=== PATIENT | male | born 1975 | race Two or more races ===

== ENCOUNTER 2021-01-17 13:48 | Emergency (ER) | payer MEDICAID, SELFPAY ==
[2021-01-17 13:54] VITALS: BP 149/80; PULSE 112; O2SAT 100
[2021-01-17 14:00] VITALS: BP 134/78; PULSE 104; RESP 16; O2SAT 99; BMI 26.9
[2021-01-17 14:27] VITALS: BP 134/78; PULSE 104; RESP 16; O2SAT 99
--- NOTE | 2021-01-17 14:35 | PC.NURSE ---
pt reports he used heroin today. HE states he used 2 bags and was later told he had been given fentanyl and not heroin. HE states he walked to get a coffee, then woke to EMS standing over him explaining he had been given Narcan. Pt states he has not used heroin in a long time and did not think it would be strong. HE expressess willingness to get help for possible future thoughts of wanting to use, states he does not want to do this agian. Pt calm and coooperative, awaits further eval.
--- NOTE | 2021-01-17 14:49 | ED.OVERDOSE ---
HPI - Overdose General Chief Complaint: Overdose Stated Complaint: possible overdose Time Seen by Provider: 01/17/21 13:56 Source: patient and EMS Mode of arrival: EMS Limitations: no limitations History of Present Illness HPI Narrative: 45-year-old male with a past medical history of asthma and past substance abuse presenting to the ED via EMS after a possible overdose prior to arrival. Patient reports he has not used any drugs in a while although he argued with his and he went for a walk and bought some heroin then went to [facility] and bought a coffee and woke up to EMS although he does not remember anything else after that. EMS administered Narcan. Otherwise patient denies any additional complaints or concerns at this time. Denies any SI/HI/auditory visual hallucinations or thoughts of self injury. Not interested in detox at this time. Reports he wants to leave at this time due to he does not want his to find out that he is here in the hospital for an overdose due to he has been sober for years and just slipped up today. complaint: accidental overdose Onset (ago): minute(s) (Prior to arrival) Related Data Previous Rx's Medication Instructions Recorded buprenorphine-naloxone [Suboxone] 1 film SUBLINGUAL DAILY 5 Days #1 01/17/21 ea Allergies Allergy/AdvReac Type Severity Reaction Status Date / Time No Known Allergies Allergy Unverified 07/05/20 18:59 [No Known Allergies*] Review of Systems Review of Systems: Constitutional : No Fever, No Chills ENT/Mouth : No Ear Pain, No Nasal Congestion, No sore throat Eyes: No Eye Pain, No Swelling, No Redness Cardiovascular : No Chest Pain, No SOB Respiratory : No Cough, No Sputum, No Dyspnea Gastrointestinal : No ingestions, No Nausea, No Vomiting, No Diarrhea, No Hematochezia, No Melena Genitourinary : No Dysuria, No Urinary Frequency, No Hematuria Musculoskeletal : No Myalgias Skin : No Skin Lesions, No rash Neuro : No Weakness, No Numbness, No Paresthesias, No Dizziness, No Headache Psych : No Anxiety, No Depression, No SI/HI, No AVH, No thoughts of self injury Heme/Lymph: No Lymphadenopathy Endocrine : No Polyuria, No Polydipsia Yes all other systems are reviewed and are negative PMFSH Past Medical History Attestation statement: The following information was validated with the patient. Medical History (Updated 01/17/21 @ 14:53 by JAREN Barr) Asthma Social History Social History Alcohol intake: never Smoking Status: Never smoker Substance Use Type: Former Substance User Physical Exam Vital Signs: Vital Signs: Last Vital Signs Pulse 104 H 01/17/21 14:27 Resp 16 01/17/21 14:27 BP 134/78 01/17/21 14:27 Pulse Ox 99 01/17/21 14:27 Body Mass Index 26.9 vital signs have been reviewed as normal and appeared to be correct. Blood pressure normal. Heart rate normal. Respiration rate normal. Temperature normal. Oxygen saturation normal. Appearance: Alert. Oriented X3. No acute distress. Head: Normal external exam. Normocephalic. Atraumatic. No Etienne signs noted. No raccoon eyes noted Eyes: PERRLA. EOMI. Conjunctiva and sclera normal. Eyelids normal. ENT: EAC normal. TM's Normal. Pharynx normal. Uvula midline. Moist mucous membranes. No trismus noted. No drooling noted. No muffled voice noted. Neck: Normal inspection. Neck supple. FROM. No adenopathy. Thyroid Normal. No meningeal signs. No neck mass noted. CVS: Normal heart rate and rhythm. Heart sound normal. No murmurs noted. Pulses normal throughout. Respiratory: No respiratory distress. Painless inspiration. Breath sounds normal. No wheezes/rales/rhonchi noted. Chest nontender. No accessory muscle usage noted or decreased air movement noted. Abdomen: Soft and nontender. Bowel sounds normal in all 4 quadrants. No distention noted. No organomegaly noted. No visible injury noted. Back: No CVA tenderness. Full range of motion noted. Skin: Skin warm and dry. Normal skin color. Normal skin turgor. No rashes/lesions/lacerations noted. Extremities: No lower extremity edema. Extremities exhibit normal range of motion. Extremities nontender. Neuro: Oriented X 3. No motor deficit. No sensory deficit. Reflexes normal. Psych: Appearance grossly normal, well-kept, mental status normal, speech and movement normal, speech clear, patient appears anxious. Is cooperative. Normal thought process. Normal thought content. Normal good insight. Judgment good. Course Course Course Narrative: 45-year-old male presenting to the ED via EMS after an overdose with Narcan given by EMS. Denies any SI/HI/auditory visual sensations thoughts of self-injury not interested in detox. Although Kenroy spoke to him and he reported that he was interested in starting Suboxone therefore will give a script at this time and he has a follow-up appointment on Thursday with Yasmin Henry at the clinic. Otherwise no additional labs or imaging indicated at this time. I explained to the patient that he should stay here for approximately 2-4 hours to be monitored and patient is declining asking to leave against medical advice. Patient is alert and oriented x3. Clinically sober denies any SI/HI/auditory visualizations thoughts of self-injury therefore at this time will discharge against medical advice with Suboxone script with instructions to follow up on Thursday with Yasmin Henry and to return if any new or worsening symptoms. Patient understands agrees with this plan. MDM - Overdose Medical Records Attestation: I reviewed the patient's medical records. Discharge Plan Discharge Clinical Impression: Substance abuse, Drug overdose Patient Disposition: Left Against Medical Advice Instructions: Polysubstance Abuse (ED) Prescriptions: New buprenorphine-naloxone [Suboxone] 4-1 mg film 1 film sublingual DAILY 5 Days Qty: 1 RF: 0 Referrals: Yasmin Henry, JOSE LUIS [Nurse Practitioner] - 3 days (Follow-up at the above address for Suboxone) Print Language: Angolan
--- NOTE | 2021-01-17 16:09 | MHC.RECOVSUP ---
Recovery Support note: Patient is a 45 year old Emirati speaking male who presented to [facility] ED due to suspected overdose. Patient reports he relapsed on heroin after getting into an argument with his partner. Patient expressed interest in getting restarted on Suboxone. Patient was discharged with a prescription and has an appointment at the [facility] the following Thursday. Discussed case with patient's ED provider.
== END 2021-01-17 15:03 | disposition left against medical advice (07) ==
PROVIDERS: Emergency Provider Emergency Medicine Emergency Medical Services
DX: T40.1X1A Poisoning by heroin, accidental (unintentional), initial encounter (principal); Y92.511 Restaurant or cafe as the place of occurrence of the external cause; F11.10 Opioid abuse, uncomplicated
CPT/HCPCS: 99283; 99285

== ENCOUNTER 2021-04-10 10:04 | Emergency (ER) | payer MEDICAID, SELFPAY ==
--- NOTE | ~2021-04-10 | CT_ITS ---
EXAMINATION: CT BRAIN AND CT FACIAL BONES WITHOUT CONTRAST. CLINICAL INFORMATION: AMS. Facial trauma. COMPARISON: None TECHNIQUE: 5 mm thin axial and reformatted 2 mm thin sagittal and coronal images of brain were obtained without contrast. Subsequently axial 3 mm thin and reformatted 1.5 mm thin sagittal and coronal images of facial bones were obtained. [facility], [facility]1983 1144 FINDINGS: Brain: There is no acute intra-axial, extra-axial bleed, masses or midline shift. Both lateral ventricles are symmetrical in size and configuration without enlargement. There is no acute infarction in evolution. No edema. Bone windows reveal no calvarial abnormality. There is no scalp soft tissue abnormality. Bilateral paranasal sinuses and mastoid air cells are well aerated. There is mild deviation of nasal septum to the left. Facial bones: There is a depressed right nasal bone fracture with minimal soft tissue swelling. The maxillofacial bones are intact. The sinuses are well-aerated and clear. The mastoid air cells are well-aerated and clear. The lamina papyracea and the cribriform plate is intact. Bilateral optic globes, optic nerve and the bony orbits are intact. Visualized left nasal bone, the zygoma and the mandible electrodes intact. Bilateral TM joints are symmetrical and normal. There is no periapical cystic changes. The maxillofacial soft tissues are normal. The nasal cavity and nasopharyngeal airway appears patent. Mild deviation of nasal septum to the left is noted. CT/CT head/brain wo con IMPRESSION: No acute intracranial process seen. There is right nasal bone depressed fracture with minimal soft tissue swelling. No additional maxillofacial, left nasal or mandibular fractures seen.
--- NOTE | ~2021-04-10 | CT_ITS ---
EXAMINATION: CT BRAIN AND CT FACIAL BONES WITHOUT CONTRAST. CLINICAL INFORMATION: AMS. Facial trauma. COMPARISON: None TECHNIQUE: 5 mm thin axial and reformatted 2 mm thin sagittal and coronal images of brain were obtained without contrast. Subsequently axial 3 mm thin and reformatted 1.5 mm thin sagittal and coronal images of facial bones were obtained. [facility] 1144 FINDINGS: Brain: There is no acute intra-axial, extra-axial bleed, masses or midline shift. Both lateral ventricles are symmetrical in size and configuration without enlargement. There is no acute infarction in evolution. No edema. Bone windows reveal no calvarial abnormality. There is no scalp soft tissue abnormality. Bilateral paranasal sinuses and mastoid air cells are well aerated. There is mild deviation of nasal septum to the left. Facial bones: There is a depressed right nasal bone fracture with minimal soft tissue swelling. The maxillofacial bones are intact. The sinuses are well-aerated and clear. The mastoid air cells are well-aerated and clear. The lamina papyracea and the cribriform plate is intact. Bilateral optic globes, optic nerve and the bony orbits are intact. Visualized left nasal bone, the zygoma and the mandible electrodes intact. Bilateral TM joints are symmetrical and normal. There is no periapical cystic changes. The maxillofacial soft tissues are normal. The nasal cavity and nasopharyngeal airway appears patent. Mild deviation of nasal septum to the left is noted. CT/CT facial bones wo con IMPRESSION: No acute intracranial process seen. There is right nasal bone depressed fracture with minimal soft tissue swelling. No additional maxillofacial, left nasal or mandibular fractures seen.
[2021-04-10 10:13] VITALS: BP 123/74; BP 140/80; PULSE 74; RESP 18; O2SAT 98; O2SAT 99; BMI 19.8
--- NOTE | 2021-04-10 10:19 | ED.GENADULT ---
HPI - General Adult General Chief complaint: ETOH/Substance Use <JAREN Dias - Last Filed: 04/10/21 17:48> Stated complaint: HEROIN USE,NO NARCAN GIVEN <JAREN Dias - Last Filed: 04/10/21 17:48> Time Seen by Provider: 04/10/21 10:06 <JAREN Dias - Last Filed: 04/10/21 17:48> Source: patient and EMS <JAREN Dias - Last Filed: 04/10/21 17:48> Mode of arrival: EMS <JAREN Dias - Last Filed: 04/10/21 17:48> Limitations: no limitations <JAREN Dias - Last Filed: 04/10/21 17:48> History of Present Illness HPI narrative: 45 y/o male with history of substance abuse, asthma who presents to the ER via EMS after he was found stumbling around by the Police. He admits to heroin and benzo use last night and this morning. He did not require narcan. He reports stress at home with his . He was up all night arguing with her. He has been struggling with substance abuse for a long time. He is lethargic on arrival but protecting his airway, easily arouses to voice but quickly falls back asleep. <JAREN iDas - Last Filed: 04/10/21 17:48> MD complaint: AMS <JAREN Dias - Last Filed: 04/10/21 17:48> Onset (ago): unknown <JAREN Dias - Last Filed: 04/10/21 17:48> Location: face (abrasion to right maxillary area) <JAREN Dias - Last Filed: 04/10/21 17:48> Severity: moderate and similar to prior episodes <JAREN Dias - Last Filed: 04/10/21 17:48> Associated symptoms: confusion <JAREN Dias - Last Filed: 04/10/21 17:48> Treatments prior to arrival: none <JAREN Dias Last Filed: 04/10/21 17:48> Related Data Home medications: Previous Rx's Medication Instructions Recorded buprenorphine-naloxone [Suboxone] 1 film SUBLINGUAL DAILY 5 Days #1 01/17/21 ea <JAREN Dias - Last Filed: 04/10/21 17:48> Allergies/adverse reactions: Allergies Allergy/AdvReac Type Severity Reaction Status Date / Time No Known Allergies Allergy Unverified 07/05/20 18:59 [No Known Allergies*] <JAREN Dias - Last Filed: 04/10/21 17:48> Review of Systems Review of Systems: Yes Unobtainable due to mental condition and Unobtainable due to mental status <JAREN Dias - Last Filed: 04/10/21 17:48> [facility] Past Medical History Attestation statement: The following information was validated with the patient. <JAREN Dias - Last Filed: 04/10/21 17:48> Medical History: Medical History (Updated 04/10/21 @ 17:48 by JAREN Dias) Asthma <JAREN Dias - Last Filed: 04/10/21 17:48> Social History Social History: Social History Alcohol intake: never Substance Use Type: Former Substance User Advance Directives: No Advance Directives Information Provided: No <JAREN Dias - Last Filed: 04/10/21 17:48> Physical Exam Vital Signs: Vital Signs: Last Vital Signs Pulse 74 04/10/21 10:13 Resp 18 04/10/21 10:13 BP 123/74 04/10/21 10:13 Pulse Ox 99 04/10/21 11:09 Body Mass Index 19.8 Appearance: Lethargic middle aged male, sleeping Head/face: right maxilla with small superficial abrasion and erythema, no tenderness, no other traumatic findings. no cervical spinal tenderness Eyes: Pupils equal, round pinpoint ENT: Pharynx with dry mucus membranes Neck: Normal inspection. Neck supple. CVS: Normal heart rate and rhythm. Pulses normal. Respiratory: No respiratory distress. Breath sounds normal. Abdomen: Soft and nontender. +BS x4 Skin: Skin warm and dry. Normal skin color. Normal skin turgor. No rashes. Extremities: No lower extremity edema. Neuro: lethargic, arouses to voice and answers questions appropriately but quickly falls asleep. non-focal. <JAREN Dias Last Filed: 04/10/21 17:48> Vital Signs: Last Vital Signs Pulse 74 04/10/21 10:13 Resp 18 04/10/21 10:13 BP 123/74 04/10/21 10:13 Pulse Ox 99 04/10/21 11:09 Body Mass Index 19.8 <Justyn Muñoz MD - Last Filed: 05/13/21 19:56> Course Course Course Narrative: 45 y/o male presenting with lethargy and AMS in the setting of heroin and benzo use. Does not require Narcan at this time. Given AMS and signs of some mild facial trauma will get CT head/c-spine, labs, Utox and monitor closely. <JAREN Dias - Last Filed: 04/10/21 17:48> I have reviewed the chart <Justyn Muñoz MD - Last Filed: 05/13/21 19:56> Reevaluation(s) Reevaluation #1: CT showing No acute intracranial process seen. There is right nasal bone depressed fracture with minimal soft tissue swelling. 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 Continues to be lethargic and sleeping, will continue to monitor. <JAREN Dias - Last Filed: 04/10/21 17:48> Reevaluation #2: patient awake and alert, eating multiple sandwiches. Told to call his for a sober ride home but she is working until 3pm. <JAREN Dias - Last Filed: 04/10/21 17:48> Reevaluation #3: Patient eloped after being monitored in the ER for 4+ hours. <JAREN Dias - Last Filed: 04/10/21 17:48> Medical Decision Making Lab Data Result diagrams: : 04/10/21 11:40 04/10/21 11:40 <JAREN Dias - Last Filed: 04/10/21 17:48> Labs: Lab Results 04/10/21 04/10/21 04/10/21 Range/Units 11:40 11:40 11:40 WBC 5.7 (4.8-10.8) X10*3/uL RBC 3.70 L (4.60-5.80) X10*6/uL Hgb 11.8 L (14.0-18.0) g/dl Hct 34.8 L (42-52) % MCV 94.1 (80-98) fL MCH 31.9 (27.0-33.0) pg MCHC 33.9 (31.0-36.0) g/dl RDW 12.1 (11.0-16.0) % Plt Count 200 (160-400) X10*3/uL MPV 10.2 (9.4-12.4) fL Immature Gran % (Auto) 0.2 (0.0-0.4) % Neut % (Auto) 57.3 (45-73) % Lymph % (Auto) 29.6 (20-40) % Canyon % (Auto) 10.6 (2-11) % Eos % (Auto) 1.6 (0-4) % Baso % (Auto) 0.7 (0-2) % Lymph # (Auto) 1.7 (1.2-4.9) X10*3/uL Canyon # (Auto) 0.6 (0.1-1.2) X10*3/uL Eos # (Auto) 0.1 (0.0-0.4) X10*3/uL Baso # (Auto) 0.0 (0.0-0.2) X10*3/uL Abs Immat Gran (auto) 0.01 (0.00-0.03) X10*3/uL Absolute Neuts (auto) 3.3 (2.0-8.3) X10*3/uL Absolute Nucleated RBC 0.000 (0.0-0.012) X10*3/uL Nucleated RBC % (auto) 0.0 (0.0-0.2) /100WBC Sodium 138 (135-145) mmol/L Potassium 3.8 (3.3-5.1) mmol/L Chloride 106 (96-108) mmol/L Carbon Dioxide 28 (22-29) mmol/L Anion Gap 8 L (12-20) BUN 16 (9-16) mg/dL Creatinine 0.90 (0.5-1.4) mg/dL Estim Creat Clear Calc 102.9 Estimated GFR > 60 Random Glucose 120 H (60-115) mg/dL Calcium 9.1 (8.4-10.2) mg/dL Magnesium 1.9 (1.6-2.6) mg/dL Total Bilirubin 0.3 (0.0-1.0) mg/dL Direct Bilirubin < 0.2 (0.0-0.5) mg/dL AST 26 (5-37) U/L ALT 16 (0-40) U/L Alkaline Phosphatase 54 (39-117) U/L Total Protein 6.0 L (6.5-8.0) g/dL Albumin 3.9 (3.5-5.0) g/dL Ethyl Alcohol < 10 mg/dL <JAREN Dias - Last Filed: 04/10/21 17:48> Lab Results 04/10/21 04/10/21 04/10/21 Range/Units 11:40 11:40 11:40 WBC 5.7 (4.8-10.8) X10*3/uL RBC 3.70 L (4.60-5.80) X10*6/uL Hgb 11.8 L (14.0-18.0) g/dl Hct 34.8 L (42-52) % MCV 94.1 (80-98) fL MCH 31.9 (27.0-33.0) pg MCHC 33.9 (31.0-36.0) g/dl RDW 12.1 (11.0-16.0) % Plt Count 200 (160-400) X10*3/uL MPV 10.2 (9.4-12.4) fL Immature Gran % (Auto) 0.2 (0.0-0.4) % Neut % (Auto) 57.3 (45-73) % Lymph % (Auto) 29.6 (20-40) % Canyon % (Auto) 10.6 (2-11) % Eos % (Auto) 1.6 (0-4) % Baso % (Auto) 0.7 (0-2) % Lymph # (Auto) 1.7 (1.2-4.9) X10*3/uL Canyon # (Auto) 0.6 (0.1-1.2) X10*3/uL Eos # (Auto) 0.1 (0.0-0.4) X10*3/uL Baso # (Auto) 0.0 (0.0-0.2) X10*3/uL Abs Immat Gran (auto) 0.01 (0.00-0.03) X10*3/uL Absolute Neuts (auto) 3.3 (2.0-8.3) X10*3/uL Absolute Nucleated RBC 0.000 (0.0-0.012) X10*3/uL Nucleated RBC % (auto) 0.0 (0.0-0.2) /100WBC Sodium 138 (135-145) mmol/L Potassium 3.8 (3.3-5.1) mmol/L Chloride 106 (96-108) mmol/L Carbon Dioxide 28 (22-29) mmol/L Anion Gap 8 L (12-20) BUN 16 (9-16) mg/dL Creatinine 0.90 (0.5-1.4) mg/dL Estim Creat Clear Calc 102.9 Estimated GFR > 60 Random Glucose 120 H (60-115) mg/dL Calcium 9.1 (8.4-10.2) mg/dL Magnesium 1.9 (1.6-2.6) mg/dL Total Bilirubin 0.3 (0.0-1.0) mg/dL Direct Bilirubin < 0.2 (0.0-0.5) mg/dL AST 26 (5-37) U/L ALT 16 (0-40) U/L Alkaline Phosphatase 54 (39-117) U/L Total Protein 6.0 L (6.5-8.0) g/dL Albumin 3.9 (3.5-5.0) g/dL Ethyl Alcohol < 10 mg/dL <Justyn Muñoz MD - Last Filed: 05/13/21 19:56> Discharge Plan Discharge Clinical Impression: Substance abuse <JAREN Dias - Last Filed: 04/10/21 17:48> Patient Disposition: Elopement <JAREN Dias - Last Filed: 04/10/21 17:48> Prescriptions: No Action buprenorphine-naloxone [Suboxone] 4-1 mg film 1 film sublingual DAILY 5 Days Qty: 1 RF: 0 <JAREN Dias - Last Filed: 04/10/21 17:48> Interventions: ED Discharge Assessment Last Done: 04/10/21 14:35 <JAREN Dias - Last Filed: 04/10/21 17:48> Discharge Date/Time: 04/10/21 14:35 <JAREN Dias - Last Filed: 04/10/21 17:48>
[2021-04-10 11:09] VITALS: O2SAT 99
[2021-04-10 11:46] LABS: MANUAL DIFF FLAG NO
--- NOTE | 2021-04-10 11:50 | MHC.RECOVSUP ---
? Reason for consult:Continuity of care o Current location: [id number] o Identified substance use concern: Heroin - Overdose - Support ? Intervention: o Harm reduction discussion ? Plan: o Patient to follow up with [facility] after discharge ? Additional information:Pt. is still impaired and uncooperative. Patient refuses detox.
[2021-04-10 11:53] LABS: Basophils Percent Auto 0.7 % (0-2); Eosinophils Absolute Auto 0.1 X10*3/uL (0.0-0.4); Eosinophils Percent Auto 1.6 % (0-4); Hematocrit 34.8 % (42-52); Hemoglobin 11.8 g/dl (14.0-18.0); Imm Gran Abs Auto 0.01 X10*3/uL (0.00-0.03); Imm Gran Pct Auto 0.2 % (0.0-0.4); Lymphocytes Absolute Auto 1.7 X10*3/uL (1.2-4.9); Lymphocytes Percent Auto 29.6 % (20-40); Mean Corpuscular HGB Conc 33.9 g/dl (31.0-36.0); Mean Corpuscular Hemoglobin 31.9 pg (27.0-33.0); Mean Corpuscular Volume 94.1 fL (80-98); Mean Platelet Volume 10.2 fL (9.4-12.4); Monocytes Absolute Auto 0.6 X10*3/uL (0.1-1.2); Monocytes Percent Auto 10.6 % (2-11); Neutrophils Absolute Auto 3.3 X10*3/uL (2.0-8.3); Neutrophils Percent Auto 57.3 % (45-73); Platelet Count 200 X10*3/uL (160-400); Red Cell Distribution Width 12.1 % (11.0-16.0); White Blood Count 5.7 X10*3/uL (4.8-10.8)
[2021-04-10 12:08] LABS: Ethanol < 10 mg/dL
[2021-04-10 12:16] LABS: Alanine Aminotransferase 16 U/L (0-40); Albumin Level 3.9 g/dL (3.5-5.0); Alkaline Phosphatase 54 U/L (39-117); Anion Gap 8 (12-20); Aspartate Amino Transferase 26 U/L (5-37); Bilirubin Direct < 0.2 mg/dL (0.0-0.5); Bilirubin Total 0.3 mg/dL (0.0-1.0); Blood Urea Nitrogen 16 mg/dL (9-16); Calcium 9.1 mg/dL (8.4-10.2); Carbon Dioxide 28 mmol/L (22-29); Chloride 106 mmol/L (96-108); Creatinine Clr Calc Pharmacy 102.9; Estimated Glomerular Filt Rate > 60; Glucose Random 120 mg/dL (60-115); Magnesium 1.9 mg/dL (1.6-2.6); Potassium 3.8 mmol/L (3.3-5.1); Sodium 138 mmol/L (135-145)
== END 2021-04-10 14:35 | disposition left against medical advice (07) ==
PROVIDERS: Physician Assistant; Emergency Provider Emergency Medicine
DX: F11.10 Opioid abuse, uncomplicated (principal); F13.10 Sedative, hypnotic or anxiolytic abuse, uncomplicated
CPT/HCPCS: 36415; 70450; 70486; 80048; 80076; 82077; 83735; 85025; 99283; 99284

== ENCOUNTER 2021-06-24 02:52 | Emergency (ER) | payer MEDICAID, SELFPAY ==
[2021-06-24] VITALS (8 sets, daily range): BP systolic 120–154; BP diastolic 80–102; PULSE 76–93; RESP 16–21; TEMP 36.4; O2SAT 96–100; BMI 21.5
--- NOTE | ~2021-06-24 | CT_ITS ---
EXAMINATION: NONCONTRAST HEAD CT NONCONTRAST MAXILLOFACIAL CT INDICATION INFORMATION: Trauma. Evaluate for orbital fracture. COMPARISON: None TECHNIQUE: Separate noncontrast CT examinations of the head and maxillofacial bones were performed. Coronal and sagittal images were created for each examination at the technologist workstation. This CT examination was performed using dose optimization techniques as appropriate, variously including the following: *Automated exposure control *Adjustment of mA and/or kV according to patient size (this includes techniques or standardized protocols for targeted exams where dose is matched to indication/reason for exam; i.e. extremities or head) *Use of iterative reconstruction technique DLP: 1078 mGy-cm FINDINGS: Head: There is no evidence of acute intracranial hemorrhage or territorial infarction. No abnormal mass effect or midline shift is seen. Ocampo to white matter differentiation is well preserved. No extra-axial fluid collections are identified. No hydrocephalus. No significant volume loss. There is no abnormal attenuation within the brain parenchyma. No acute soft tissue abnormality. No calvarial fracture. The mastoid air cells are well aerated. Maxillofacial: Comminuted, slightly impacted fractures of the anterior wall of the LEFT maxillary sinus. One component of the fracture extends to the LEFT inferior orbital rim. The left orbital floor is intact. RIGHT orbit is intact. Both globes are intact. No retrobulbar hematoma. Extensively comminuted bilateral nasal bone fractures with mild displacement and angulation. There is also a mildly displaced fracture of the nasal spine of the maxilla anteriorly. No additional acute facial bone fractures. Paranasal sinuses are clear. Mandible and temporomandibular joints are intact. There is left periorbital and perinasal soft tissue swelling. Left premaxillary soft tissue swelling. CT/CT facial bones wo IV con IMPRESSION: 1. No acute intracranial findings. 2. Acute comminuted minimally impacted fracture of the LEFT anterior maxillary wall, with a component of the fracture reaching the LEFT inferior orbital rim. Remainder of the LEFT orbit is intact. 3. Extensively comminuted, mildly displaced and angulated bilateral nasal bone fractures.
--- NOTE | 2021-06-24 04:15 | PC.NURSE ---
at bedside for primary eval. Pt remains very drowsy, becoming irritated when staff attempting to wake/question patient. Urine obtained and sent.
[2021-06-24 04:16] LABS: Glucose Urine UA NEG (NEG); Leukocyte Esterase Urine NEG (NEG); Nitrite Urine NEG (NEG); UACC Culture Trigger NO; Urine Blood TRACE (NEG); Urine Ketones NEG (NEG); Urine Protein NEG (NEG-TRACE)
--- NOTE | 2021-06-24 04:16 | ED.GENADULT ---
HPI - General Adult General Chief complaint: ETOH/Substance Use Stated complaint: drug use Time Seen by Provider: 06/24/21 04:05 Source: EMS Mode of arrival: EMS Limitations: altered mental status History of Present Illness HPI narrative: Patient comes to the emergency room by EMS. According to the EMS staff, the [place]. Seems that a concerned bystander saw him acting strangely and called EMS. When EMS picked up the patient, the patient said that he used Xanax and nothing else. Patient refuses to give his real name, does not have an ID on him. On arrival to the emergency room, patient wakes up to sternal rub, patient belligerent, wants to go back to sleep, not answering any questions, uncooperative Related Data Previous Rx's Medication Instructions Recorded amoxicillin 875 mg-potassium 1 tab PO BID #20 tab 06/24/21 clavulanate 125 mg tablet (Augmentin) Allergies Allergy/AdvReac Type Severity Reaction Status Date / Time No Known Allergies Allergy Verified 06/24/21 03:10 Review of Systems Review of Systems: Yes Other (Intoxicated) [facility] Past Medical History [facility] Narrative: Unobtainable at this time Medical History Substance abuse Physical Exam Vital Signs: Vital Signs: Last Vital Signs Temp 97.5 F 06/24/21 03:03 Pulse 93 06/24/21 06:09 Resp 16 06/24/21 06:09 BP 154/102 H 06/24/21 03:03 Pulse Ox 100 06/24/21 03:03 Body Mass Index 21.5 Const: Other: Appearance: Somnolent, uncooperative Eyes: Pupils equal, round and reactive to light. ENT: Pharynx normal. Neck: Normal inspection. Neck supple. No lymph nodes noted. No crepitus CVS: Normal heart rate and rhythm. Pulses normal. Normal S1 and S2 Respiratory: No respiratory distress. Breath sounds normal. No Wheezing. No rales Abdomen: Soft and nontender. No rigidity. No distention. Skin: Skin warm and dry. Multiple ecchymoses to face, especially left-side MSK: No lower extremity edema. No Lacerations. No Rash Neuro: Intoxicated, combative and belligerent when we tried to wake him up Course Course Course Narrative: Bone fractures, including nasal bone and maxillary wall fracture. Patient is unable to cooperate at this time, however when patient moves his eyes,extraocular muscle entrapment is not suspected at this time but needs reassessment. At this time, patient is somnolent, wakes up to sternal rub, becomes belligerent and was back to sleep. We do not know his allergies. Patient's urine was positive for opiates, fentanyl, cocaine, marijuana. First dose of antibiotic was ordered when the patient is awake and after we confirmed his allergies. At this time, we do not know the patient's real name. Sign out given to Dr. Corado Medical Decision Making Lab Data Labs: Lab Results 06/24/21 06/24/21 Range/Units 04:11 04:11 Urine Color YELLOW Urine Appearance CLEAR Urine pH 8.0 (5.0-8.0) Ur Specific [place] 1.020 (1.005-1.025) Urine Protein NEG (NEG-TRACE) MG/DL Urine Glucose (UA) NEG (NEG) MG/DL Urine Ketones NEG (NEG) MG/DL Urine Blood TRACE (NEG) Urine Nitrite NEG (NEG) Ur Leukocyte Esterase NEG (NEG) Urine RBC 1-4 (0) /HPF Urine WBC 0-2 (0-4) /HPF Ur Squamous Epith Cells 1+ /LPF Urine Bacteria 1+ /LPF Urine Opiates Screen POSITIVE H (Not Detect) Urine Fentanyl Screen POSITIVE H (Not Detect) Ur Barbiturates Screen Not Detected (Not Detect) Ur Phencyclidine Scrn Not Detected (Not Detect) Ur Amphetamines Screen Not Detected (Not Detect) U Benzodiazepines Scrn Not Detected (Not Detect) Urine Cocaine Screen POSITIVE H (Not Detect) U Marijuana (THC) Screen POSITIVE H (Not Detect) Imaging Data CT of the head and facial bones: Radiologist's impression: This CT examination was performed using dose optimization techniques as appropriate, variously including the following: *Automated exposure control *Adjustment of mA and/or kV according to patient size (this includes techniques or standardized protocols for targeted exams where dose is matched to indication/reason for exam; i.e. extremities or head) *Use of iterative reconstruction technique DLP: 1078 mGy-cm FINDINGS: Head: There is no evidence of acute intracranial hemorrhage or territorial infarction. No abnormal mass effect or midline shift is seen. Ocampo to white matter differentiation is well preserved. No extra-axial fluid collections are identified. No hydrocephalus. No significant volume loss. There is no abnormal attenuation within the brain parenchyma. No acute soft tissue abnormality. No calvarial fracture. The mastoid air cells are well aerated. Maxillofacial: Comminuted, slightly impacted fractures of the anterior wall of the LEFT maxillary sinus. One component of the fracture extends to the LEFT inferior orbital rim. The left orbital floor is intact. RIGHT orbit is intact. Both globes are intact. No retrobulbar hematoma. Extensively comminuted bilateral nasal bone fractures with mild displacement and angulation. There is also a mildly displaced fracture of the nasal spine of the maxilla anteriorly. No additional acute facial bone fractures. Paranasal sinuses are clear. Mandible and temporomandibular joints are intact. There is left periorbital and perinasal soft tissue swelling. Left premaxillary soft tissue swelling. CT/CT facial bones wo con IMPRESSION: 1. No acute intracranial findings. 2. Acute comminuted minimally impacted fracture of the LEFT anterior maxillary wall, with a component of the fracture reaching the LEFT inferior orbital rim. Remainder of the LEFT orbit is intact. 3. Extensively comminuted, mildly displaced and angulated bilateral nasal bone fractures. Discharge Plan Discharge Clinical Impression: Alcoholic intoxication, Polysubstance abuse, Closed fracture nasal bone, Closed fracture of maxillary alveolar socket wall Patient Disposition: Home, Self-Care Instructions: Facial Fracture (ED), Polysubstance Abuse (ED) Additional Instructions: Please follow-up with your primary care physician tomorrow. If you have any worsening or new symptoms, please return to the emergency room or call 911 Prescriptions: New amoxicillin-pot clavulanate [Augmentin] 875-125 mg tablet 1 tab PO BID Qty: 20 RF: 0
[2021-06-24 04:18] LABS: Appearance Urine CLEAR; Color Urine YELLOW
[2021-06-24 04:23] LABS: Bacteria Urine 1+ /LPF; Squamous Epithelial Cell Urine 1+ /LPF; WBC Urine 0-2 /HPF (0-4)
[2021-06-24 04:30] LABS: Amphetamine Screen Urine Not Detected (Not Detect); Barbiturates, Urine Not Detected (Not Detect); Benzodiazepines Screen Urine Not Detected (Not Detect); Cannabinoid Screen Urine POSITIVE (Not Detect); Cocaine Screen Urine POSITIVE (Not Detect); Fentanyl, urine POSITIVE (Not Detect); Opiate Screen Urine POSITIVE (Not Detect); Phencyclidine Screen Urine Not Detected (Not Detect)
--- NOTE | 2021-06-24 06:10 | PC.NURSE ---
Pt off to CT on hospital bed.
[2021-06-24] MEDS: Amoxicillin/Potassium Clav 875 MG TABLET PO (12:48)
--- NOTE | 2021-06-24 14:57 | MHC.CARE ---
CARE Team able to secure Pt placement at [facility]. Pt transported to [facility] via [facility]
--- NOTE | 2021-06-24 17:08 | MHC.CARE ---
CARE team contacted by MAGDALENO Freitas re: script for Augmentin that pt was to be sent with. [facility] which is listed as pt's preferred pharmacy in the medical record. This typewriter mechanic spoke with ED nurse and physician about cancelling the script and resending to [facility] [place] ([facility]).
== END 2021-06-24 14:50 | disposition home or self-care (01) ==
LOC: HO.ED 13:20
PROVIDERS: Emergency Provider Emergency Medicine
DX: F10.220 Alcohol dependence with intoxication, uncomplicated (principal); Y90.9 Presence of alcohol in blood, level not specified; F19.10 Other psychoactive substance abuse, uncomplicated; S02.42XA Fracture of alveolus of maxilla, initial encounter for closed fracture; S02.2XXA Fracture of nasal bones, initial encounter for closed fracture; X58.XXXA Exposure to other specified factors, initial encounter; R40.0 Somnolence; Y93.9 Activity, unspecified; Y92.9 Unspecified place or not applicable; Y99.9 Unspecified external cause status
CPT/HCPCS: 70450; 70486; 80307; 81001; 99284

== ENCOUNTER 2022-12-15 11:29 | Emergency (ER) | payer MEDICAID, SELFPAY ==
[2022-12-15 11:39] VITALS: BP 132/80; BP 140/88; PULSE 105; PULSE 90; RESP 16; TEMP 37.2; O2SAT 100; BMI 26.6
--- NOTE | 2022-12-15 11:52 | ED_ITS ---
HPI - Medical Clearance General Chief complaint: Upper Respiratory Symptoms Stated complaint: Wheezing / allergic reaction ? Time Seen by Provider: 12/15/22 11:35 Source: patient and EMS Mode of arrival: EMS History of Present Illness HPI Narrative: 47-year-old male with a past medical history of substance abuse, asthma who is presenting to the ED via EMS after he was trying to leave [facility] discharge himself out although the staff member told him that he could not leave and patient states ?the staff member told me that I look like I was going to pass out I do not know what she was talking about I feel completely fine I want to go home and have any symptoms?. Patient denies any fevers, chills, headaches, neck pain/stiffness, chest pain or shortness of breath, sore throat, cough, nausea/vomiting/diarrhea, abdominal pain, rashes, recent falls or trauma, recent drug usage, any auditory or visual hallucinations thoughts of self-injury, any SI or thoughts of self-injury, any homicidal ideations or any other symptoms complaints or concerns at this time. He reports he just wants to go home that is his right per patient stated that to me. complaint: medical clearance requested Onset (ago): minute(s) (Now) Reason for Medical Clearance: other (From [facility]) Alleged Intoxication: No Compliant with Home Medications: Yes Traumatic Symptoms: denies traumatic injury Associated Symptoms: denies other symptoms Treatments Prior to Arrival: none Related Information Previous Rx's Medication Instructions Recorded buprenorphine 4 mg-naloxone 1 mg 1 film sublingual DAILY 5 days #1 01/17/21 sublingual film (Suboxone) ea amoxicillin 875 mg-potassium 1 tab PO BID #20 tabs 06/24/21 clavulanate 125 mg tablet (Augmentin) Allergies Allergy/AdvReac Type Severity Reaction Status Date / Time No Known Allergies Allergy Unverified 08/12/22 13:46 [No Known Allergies*] Review of Systems Review of Systems: Constitutional : No Weight loss, No Fever, No Chills, No Night Sweats, No Fatigue, No Malaise ENT/Mouth : No Hearing loss, No Ear Pain, No Nasal Congestion, No Sinus Pain, No Hoarseness, No sore throat, No Rhinorrhea, No Swallowing Difficulty Eyes: No Eye Pain, No Swelling, No Redness, No Foreign Body, No Discharge, No Vision Changes Cardiovascular : No Chest Pain, No SOB, No Dyspnea on Exertion, No Orthopnea, No Edema, No Palpitations Respiratory : No Cough, No Sputum, No Wheezing, No Smoke Exposure, No Dyspnea Gastrointestinal : No Nausea, No Vomiting, No Diarrhea, No Constipation, No abdominal Pain, No Hematochezia, No Melena Genitourinary : no irregular bleeding, No Dysuria, No Urinary Frequency, No Hematuria, No Urinary Incontinence, No Urgency, No Flank Pain, No Urinary Flow Changes, No Hesitancy Musculoskeletal : No joint pain, No Myalgias, No Joint Swelling Skin : No Skin Lesions, No rash Neuro : No Weakness, No Numbness, No Paresthesias, No Loss of Consciousness, No Dizziness, No Headache Psych : No Anxiety/Panic, No Depression, No SI/HI/AH/VH, No Social Issues, Heme/Lymph: No Bruising, No Bleeding,No Lymphadenopathy Endocrine : No Polyuria, No Polydipsia, No Temperature Intolerance Yes all other systems are reviewed and are negative [facility] Past Medical History Attestation statement: The following information was validated with the patient. Source: old records reviewed and nursing notes reviewed Medical History Asthma Substance abuse Social History Social History Alcohol intake: never Substance Use Type: Former Substance User Advance Directives: No Advance Directives Information Provided: No Physical Exam Vital Signs: Vital Signs: Last Vital Signs Temp 99.0 F 12/15/22 11:39 Pulse 105 H 12/15/22 11:39 Resp 16 12/15/22 11:39 BP 132/80 12/15/22 11:39 Pulse Ox 100 12/15/22 11:39 O2 Del Method 12/15/22 11:39 BMI result Body Mass Index 26.6 vital signs have been reviewed as normal and appeared to be correct. Blood pressure normal. Heart rate normal. Respiration rate normal. Temperature normal. Oxygen saturation normal. Appearance: Alert. Oriented X3. No acute distress. Head: Normal external exam. Normocephalic. Atraumatic. No Etienne signs noted. No raccoon eyes noted Eyes: PERRLA. EOMI. Conjunctiva and sclera normal. Eyelids normal. ENT: EAC normal. TM's Normal. No septal hematoma noted. No hemotympanum noted. Pharynx normal. Uvula midline. Moist mucous membranes. No lesions/ulcerations or masses noted on the tongue. Normal voice. No trismus noted. No drooling noted. No muffled voice noted. Neck: Normal inspection. Neck supple. FROM. No adenopathy. Thyroid Normal. No tracheal deviation noted. No crepitus is noted. No meningeal signs. No neck mass noted. No signs of trauma noted. CVS: Normal heart rate and rhythm. Heart sound normal. Pulses normal throughout. No murmurs/rales/gallops. Respiratory: No respiratory distress. Painless inspiration. Breath sounds normal. No wheezes/rales/rhonchi noted. Chest nontender. No crepitus is noted. No accessory muscle usage noted or decreased air movement noted. No signs of trauma. Abdomen: Soft and nontender. Nondistended. No guarding. No rigidity. Bowel sounds normal in all 4 quadrants. No distention noted. No organomegaly noted. No visible injury noted. No rebound tenderness. Negative Rovsing sign. Negative obturator's sign. Negative psoas sign. Negative Munoz sign. Back: No CVA tenderness. Full range of motion noted. Nontender. No signs of trauma. Patient neuro intact bilaterally and distally on all 4 extremities. Patient's reflexes intact bilaterally and distally on all 4 extremities. No rashes/lesion/induration/fluctuance or signs of infection noted. Skin: Skin warm and dry. Normal skin color. Normal skin turgor. No rashes/lesions/lacerations noted. Extremities: No lower extremity edema. No calf tenderness is noted. Extremities exhibit normal range of motion and nontender. Neuro: Oriented X 3. No motor deficit. No sensory deficit. Reflexes normal. Normal steady gait. No focal neuro deficits noted. CN's II-XII intact bilaterally? Vascular: + radial pulses/+ 2 distal pedal pulses/+2 dorsalis pedis b/l. Normal cap refill. No cyanosis noted to upper extremity nails and lower extremity toes nails. Course Course Course Narrative: Patient denies any symptoms. On my exam he has a normal exam. Does not appear intoxicated. Vital signs are stable. Alert and oriented x3. No signs of trauma. No concerns for mental health at this time. Therefore at this time will DC home with instructions return if any new or worsening symptoms follow up with primary care provider. Patient understands agrees with this plan. Discharge Plan Discharge Clinical Impression: Normal exam Patient Disposition: Home, Self-Care Instructions: Normal Exam (ED) Prescriptions: No Action amoxicillin-pot clavulanate [Augmentin] 875-125 mg tablet 1 tab PO BID Qty: 20 0RF buprenorphine-naloxone [Suboxone] 4-1 mg film 1 film sublingual DAILY 5 Days Qty: 1 0RF Referrals: [facility] [Primary Care Provider] - 2 days
== END 2022-12-15 12:08 | disposition home or self-care (01) ==
PROVIDERS: Emergency Provider Emergency Medicine
DX: Z03.89 Encounter for observation for other suspected diseases and conditions ruled out (principal); J45.909 Unspecified asthma, uncomplicated; F11.20 Opioid dependence, uncomplicated
CPT/HCPCS: 99282

== ENCOUNTER 2022-12-26 10:39 | Emergency (ER) | payer MEDICAID, SELFPAY ==
--- NOTE | ~2022-12-26 | XR_ITS ---
EXAMINATION: XR HAND, RIGHT CLINICAL INFORMATION: Right hand pain and swelling. COMPARISON: None TECHNIQUE: PA, lateral, and oblique views of the right hand. FINDINGS: Deformity seen in the distal phalanx of the fifth digit. The remainder the digits are intact. Mild fifth distal interphalangeal degenerative joint changes are seen. The carpal bones are normally aligned. The distal radius and ulna are intact. The soft tissues are unremarkable. XR/XR hand RT 2V IMPRESSION: 1. Deformity in the distal phalanx of the fifth digit does not appear acute and could be secondary to old injury or remodeling from adjacent soft tissue abnormality. Correlate with physical exam and patient history. Mild adjacent distal interphalangeal degenerative joint changes most consistent with osteoarthritis. No significant abnormality in the remainder of the right hand.
[2022-12-26 10:44] VITALS: BP 192/100; PULSE 90; O2SAT 100
[2022-12-26 10:48] VITALS: BP 160/104; PULSE 80; RESP 18; TEMP 37.5; O2SAT 100; BMI 25.3
--- NOTE | 2022-12-26 10:53 | ED_ITS ---
HPI - General Adult General Chief complaint: General Medical Stated complaint: L hand pain, finger swelling per EMS Time Seen by Provider: 12/26/22 10:50 Source: patient and EMS Mode of arrival: EMS Limitations: no limitations History of Present Illness HPI narrative: Patient is a 47 year old assigned male at with a history of astham and substance abuse presenting to the emergency department today with right hand pain. Patient states that he is having right hand pain and swelling. Patient denies any dizziness, lightheadedness, abdominal pain, nausea, vomiting, fever, chills, blurry vision, double vision, loss of vision, chest pain, difficulty breathing, shortness of breath, back pain, night sweats, pain with urination, increased urinary frequency, increased urinary urgency, blood in his urine or stool, syncope or a near syncopal episode, recent trauma or falls, bowel incontinence, bladder incontinence, bowel retention, bladder retention, or any other complaints at this time. Onset (ago): day(s) Location: right and upper extremity Radiation: non-radiation Severity: mild Severity scale (1-10): 2 Quality: dull Pain Consistency: constant Relieving factors: none Exacerbating factors: none Associated symptoms: denies other symptoms Treatments prior to arrival: none Related Data Previous Rx's Medication Instructions Recorded buprenorphine 4 mg-naloxone 1 mg 1 film sublingual DAILY 5 days #1 01/17/21 sublingual film (Suboxone) ea amoxicillin 875 mg-potassium 1 tab PO BID #20 tabs 06/24/21 clavulanate 125 mg tablet (Augmentin) Allergies Allergy/AdvReac Type Severity Reaction Status Date / Time No Known Allergies Allergy Unverified 08/12/22 13:46 [No Known Allergies*] Review of Systems Constitutional: Constitutional: Reports no additional constitutional complaints, Denies chills, Denies fever(s) and Denies night sweats Eyes: Eyes: Reports no additional eye complaints, Denies blurry vision, Denies change in vision, Denies diplopia, Denies eye discharge, Denies loss of vision and Denies eye pain ENT: Denies dizziness Cardiovascular: Cardiovascular: Reports no additional cardiovascular complaints, Denies chest pain, Denies lightheadedness, Denies Loss of Consciousness and Denies dyspnea Respiratory: Respiratory: Reports no additional respiratory complaints and Denies dyspnea Gastrointestinal: Gastrointestinal: Reports no additional gastrointestinal complaints, Denies abdominal pain, Denies melena, Denies hematochezia, Denies change in bowel habits and Denies change in stool character Genitourinary: Genitourinary: Reports no additional male genitourinary complaints, Denies hematuria, Denies oliguria, Denies difficulty urinating, Denies dysuria, Denies urinary frequency, Denies urinary hesitancy, Denies urinary incontinence and Denies urinary urgency Musculoskeletal: Musculoskeletal: Reports no additional musculoskeletal complaints, Denies numbness and Denies tingling Comments: right hand pain Neurologic: Denies dizziness, Denies loss of vision, Denies numbness and Denies tingling Psychiatric: Psychiatric: Reports no additional psychiatric complaints Endocrine: Endocrine: Reports no additional endocrine complaints Hematologic/Lymphatic: Hematologic/Lymphatic: Reports no additional hematologic/lymphatic complaints Allergic/Immunologic: Allergic/Immunologic: Reports no additional allergic/immunologic complaints PMFSH Past Medical History Attestation statement: The following information was validated with the patient. Source: old records reviewed and nursing notes reviewed Medical History Asthma Substance abuse Social History Social History Alcohol intake: never Substance Use Type: Former Substance User Advance Directives: No Advance Directives Information Provided: No Physical Exam ED Vital Signs: Vital Signs - 24 hr 12/26/22 10:48 Temperature 99.5 F Pulse Rate 80 Respiratory Rate 18 Blood Pressure 160/104 H Pulse Oximetry 100 Oxygen Delivery Method Room Air BMI result Body Mass Index 25.3 Const General: cooperative, no acute distress, alert and awake Nutritional Appearance: well nourished Orientation/consciousness: patient oriented x3 Limitations: no limitations [facility] Head: Yes normal to inspection and Yes atraumatic Ears: hearing grossly normal bilaterally and external ears normal General nose exam: Normal external nose present, no nasal discharge noted and no epistaxis Face and sinus: Yes normal facial exam, No abrasion and No laceration Mouth: Normal oral and palatal mucosa present, no drooling and no muffled voice Eyes General: appearance normal, both eyes and all related structures Periorbital: periorbital findings normal Eyelids: Yes eyelids normal Conjunctivae: conjunctivae normal Pupils: Equal, round and reactive pupils present EOM: EOMs intact bilaterally Neck Neck: Yes normal visual inspection, Yes full ROM and Yes no lymphadenopathy Chest Chest palpation & inspection: normal inspection of the chest Resp Effort & Inspection: normal respiratory effort and able to speak in complete sentences Auscultation: clear to auscultation bilaterally Cardio Rate: regular rate Rhythm: regular rhythm GI Inspection: Yes normal to inspection Neuro General: patient oriented x3 and moves all extremities Cranial nerves: Yes Equal, round and reactive pupils present Cognition (Neuro): normal cognition Motor exam (neuro): 5/5 motor strength present throughout Sensory Exam: Normal double simultaneous stimulation for sensation Coordination: [id number] test normal Extrem General: Yes normal to inspection, Yes full ROM and Yes capillary refill normal Psych Appearance: grossly normal Mental Status: mental status grossly normal Affect: normal affect Attitude: cooperative Thought process: Normal thought process present Thought content: Normal thought content present Insight: Good insight present (Psych) Medical Decision Making Medical Decision Making MDM Narrative: Patient is a 47 year old assigned male at with a history of asthma and substance abuse presenting to the emergency department today with right hand pain. Patient's physical exam was unremarkable. Patient's right hand x-ray showed no acute process. I explained my physical exam findings as well as all test results to the patient. I answered all questions asked by the patient. I stressed the importance of the patient taking his medication as prescribed. I stressed the importance of the patient following up with his primary care provider and an orthopedic provider. I stressed the importance of the patient returning to the emergency department immediately if his symptoms were to worsen or if he were to develop any dizziness, shortness of breath, difficulty breathing, chest pain, blurry vision, loss of vision, nausea, vomiting, abdominal pain, fever, chills, back pain, or any other complaints. Patient verbalized agreement and understanding with this treatment plan and discharge. Differential Diagnosis Differential Diagnoses: The differential diagnosis associated with the presentation includes right hand pain Independent Interpretation I performed an independent interpretation of an: Plain X-Ray Interpretation: My interpretation is in agreement with the radiologist's impression of this imaging study. EXAMINATION: XR HAND, RIGHT CLINICAL INFORMATION: Right hand pain and swelling.? COMPARISON: None? TECHNIQUE: PA, lateral, and oblique views of the right hand. FINDINGS: Deformity seen in the distal phalanx of the fifth digit. The remainder the digits are intact. Mild fifth distal interphalangeal degenerative joint changes are seen. The carpal bones are normally aligned. The distal radius and ulna are intact. The soft tissues are unremarkable.? XR/XR hand RT 2V IMPRESSION: ? 1. Deformity in the distal phalanx of the fifth digit does not appear acute and could be secondary to old injury or remodeling from adjacent soft tissue abnormality. Correlate with physical exam and patient history. Mild adjacent distal interphalangeal degenerative joint changes most consistent with osteoarthritis. ? No significant abnormality in the remainder of the right hand. Dictated By: Gianfranco Kennedy MD Signed By: Electronically signed by Gianfranco Kennedy MD 12/26/22 [id number] Discharge Plan Discharge Clinical Impression: Hand pain Patient Disposition: Home, Self-Care Additional Instructions: Follow up with your primary care provider. Return to the emergency department immediately if your symptoms worsen or if you develop any dizziness, shortness of breath, difficulty breathing, chest pain, blurry vision, loss of vision, nausea, vomiting, abdominal pain, fever, chills, back pain, or any other complaints. Prescriptions: No Action amoxicillin-pot clavulanate [Augmentin] 875-125 mg tablet 1 tab PO BID Qty: 20 0RF buprenorphine-naloxone [Suboxone] 4-1 mg film 1 film sublingual DAILY 5 Days Qty: 1 0RF Referrals: [facility] [place] Family Medicine [Provider Group] (Call to establish and follow up with a primary care provider. If you already have a primary care provider, please follow up with them.) [facility] [place] [facility] [Provider Group] (Call to establish and follow up with a primary care provider. If you already have a primary care provider, please follow up with them.) [facility] [place] [facility] [Provider Group] (Call to establish and follow up with a primary care provider. If you already have a primary care provider, please follow up with them.) [facility] [Provider Group] (Call to establish and follow up with an orthopedic provider. ) Interventions: ED Discharge Assessment Last Done: 12/26/22 11:21 Discharge Date/Time: 12/26/22 11:22 Print Language: Slovenian
--- NOTE | 2022-12-26 11:17 | PC.NURSE ---
Patient came in via ambulance from [facility] c/o right hand pain. Xray brought patient back from hand xray patient states he wants to leave. Starts walking around we tell him to go back to his room and he ends up walking out when someone else is leaving. [facility] called and notified.
== END 2022-12-26 11:22 | disposition home or self-care (01) ==
PROVIDERS: Emergency Provider Emergency Medicine
DX: M79.642 Pain in left hand (principal); M79.89 Other specified soft tissue disorders; J45.909 Unspecified asthma, uncomplicated
CPT/HCPCS: 73120; 99282; 99283

== ENCOUNTER 2023-01-18 09:08 | Emergency (ER) | payer MEDICAID, SELFPAY ==
--- NOTE | 2023-01-18 09:35 | ED.GENADULT ---
HPI - General Adult General Chief complaint: Psychiatric Symptoms Stated complaint: Psych eval per EMS Time Seen by Provider: 01/18/23 09:16 Source: EMS Mode of arrival: EMS Limitations: other (Under influence) History of Present Illness HPI narrative: This is a 47 years old patient known to us presented to the emergency department under the influence of drugs, he has history of poly substance abuse including fentanyl cocaine, he was found unsteady on the street transported by ambulance. He is awake and alert now,denies SI HI,he is under influence of drugs Onset (ago): hour(s) (1) Radiation: non-radiation Severity: moderate Relieving factors: none Exacerbating factors: none Related Data Previous Rx's Medication Instructions Recorded buprenorphine 4 mg-naloxone 1 mg 1 film sublingual DAILY 5 days #1 01/17/21 sublingual film (Suboxone) ea amoxicillin 875 mg-potassium 1 tab PO BID #20 tabs 06/24/21 clavulanate 125 mg tablet (Augmentin) Allergies Allergy/AdvReac Type Severity Reaction Status Date / Time No Known Allergies Allergy Unverified 08/12/22 13:46 [No Known Allergies*] Review of Systems Review of Systems: Yes Unobtainable due to mental condition [facility] Past Medical History [facility] Narrative: Polysubstance abuse cocaine/fentanyl Medical History Asthma Substance abuse Social History Social History Alcohol intake: never Substance Use Type: Former Substance User Advance Directives: No Advance Directives Information Provided: No Physical Exam ED Vital Signs: Vital Signs - 24 hr 01/18/23 09:48 Pulse Rate 63 Respiratory Rate 16 Blood Pressure 94/54 L Pulse Oximetry 97 Oxygen Delivery Method Room Air BMI result Body Mass Index 25.8 Const General: cooperative, no acute distress, well developed, alert, awake and lethargic Orientation/consciousness: lethargic HENAK Head: Yes normal to inspection, Yes No palpable skull fracture present and Yes normocephalic General nose exam: Normal external nose present Face and sinus: Yes normal facial exam Mouth: Normal oral and palatal mucosa present Neck Neck: Yes normal visual inspection and Yes full ROM Chest Chest palpation & inspection: normal inspection of the chest Resp Effort & Inspection: normal respiratory effort Auscultation: clear to auscultation bilaterally Cardio Rate: regular rate Rhythm: regular rhythm GI Inspection: Yes normal to inspection Palpation (GI): Soft to palpation, not firm, nontender and no guarding Skin General skin exam: no rashes or lesions noted, elasticity normal and turgor normal Neuro Other: Patient is awake and alert, he is lethargic but easily arousable no focal Extrem General: Yes normal to inspection and Yes full ROM Course Reevaluation(s) Reevaluation #1: Stable clinically sleeping at this time Time: 10:39 Medical Decision Making Medical Decision Making [facility] Narrative: Patient presented with altered mental status secondary to substance abuse; plan is observation and re-evaluation in few hours when sober , consult care team will obtain urine for toxicology Differential Diagnosis Differential Diagnoses: The differential diagnosis associated with the presentation includes overdose/psycosis Discharge Plan Discharge Clinical Impression: Drug abuse Prescriptions: No Action amoxicillin-pot clavulanate [Augmentin] 875-125 mg tablet 1 tab PO BID Qty: 20 0RF buprenorphine-naloxone [Suboxone] 4-1 mg film 1 film sublingual DAILY 5 Days Qty: 1 0RF
[2023-01-18 09:48] VITALS: BP 132/74; BP 94/54; PULSE 63; PULSE 72; RESP 16; O2SAT 97; O2SAT 98; BMI 25.8
--- NOTE | 2023-01-18 11:13 | MHC.RECOVRN ---
Attempted to meet with pt in ED9 after consult placed to CARE Team for substance use. Pt asleep, startles awake to touch. Pt unable to carry on meaningful conversation as he is under the influence of substances. Appears to be laughing with and talking to people who are not there. Will continue to follow.
[2023-01-18 11:19] VITALS: BP 97/46; PULSE 57; RESP 16; O2SAT 98
[2023-01-18 13:24] VITALS: BP 107/57; PULSE 56; RESP 16; O2SAT 97
--- NOTE | 2023-01-18 14:15 | PC.NURSE ---
Pt remains asleep in the ED comfortably. VSS
--- NOTE | 2023-01-18 14:53 | MHC.RECOVRN ---
Met with pt in ED9 to discuss substance use. 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 Pt reports recently being at [facility] and is requesting to return. T/w will conduct bedsearch.
[2023-01-18 15:06] LABS: Amphetamine Screen Urine Not Detected (Not Detect); Barbiturates, Urine Not Detected (Not Detect); Benzodiazepines Screen Urine Not Detected (Not Detect); Cannabinoid Screen Urine POSITIVE (Not Detect); Cocaine Screen Urine POSITIVE (Not Detect); Fentanyl, urine POSITIVE (Not Detect); Opiate Screen Urine POSITIVE (Not Detect); Phencyclidine Screen Urine Not Detected (Not Detect)
--- NOTE | 2023-01-18 15:37 | PC.NURSE ---
Pt currently completing intake for [facility].
--- NOTE | 2023-01-18 16:56 | MHC.RECOVSUP ---
? Reason for consult:Recovery Support o Current location: ED 09? o Identified substance use concern: NENA? - Seeking ATS (detox) - Support ? ?Intervention: o ATS bed search started/completed/in process: Baylee Freitas ? Additional information:?Consult with the care team prior to entry. Inspector [employer] was able to connect with patient and review his admission to [facility] detox [facility] in [place]. Patient was not interested in reviewing harm reduction strategies or community resources. Care team ordered the lift and recovery operator helper connected with provider for discharge. This case was completed.
== END 2023-01-18 17:15 | disposition home or self-care (01) ==
PROVIDERS: Emergency Provider Emergency Medicine
DX: F14.20 Cocaine dependence, uncomplicated (principal); F11.10 Opioid abuse, uncomplicated; Z71.51 Drug abuse counseling and surveillance of drug abuser; Z79.899 Other long term (current) drug therapy
CPT/HCPCS: 80307; 99284

== ENCOUNTER 2023-01-29 01:07 | Emergency (ER) | payer OTHER, MEDICAID, SELFPAY ==
[2023-01-29 01:16] VITALS: BP 141/71; PULSE 82; RESP 16; TEMP 36.6; O2SAT 97; BMI 25.2
[2023-01-29 01:56] LABS: Basophils Percent Auto 0.5 % (0-2); Eosinophils Percent Auto 0.5 % (0-4); Hematocrit 36.7 % (42.0-52.0); Hemoglobin 12.3 g/dl (14.0-18.0); Imm Gran Abs Auto 0.03 X10*3/uL (0.00-0.03); Imm Gran Pct Auto 0.5 % (0.0-0.4); Lymphocytes Absolute Auto 0.9 X10*3/uL (1.2-4.9); MANUAL DIFF FLAG NO; Mean Corpuscular HGB Conc 33.5 g/dl (31.0-36.0); Mean Corpuscular Hemoglobin 30.2 pg (27.0-33.0); Mean Corpuscular Volume 90.2 fL (80.0-98.0); Mean Platelet Volume 9.3 fL (9.4-12.4); Monocytes Absolute Auto 0.4 X10*3/uL (0.1-1.2); Monocytes Percent Auto 6.1 % (2-11); Neutrophils Percent Auto 78.4 % (45-73); Platelet Count 230 X10*3/uL (160-400); Red Blood Count 4.07 X10*6/uL (4.60-5.80); Red Cell Distribution Width 12.3 % (11.0-16.0); White Blood Count 6.4 X10*3/uL (4.8-10.8)
[2023-01-29 01:57] LABS: Appearance Urine Cloudy; Color Urine Dark Yellow; Glucose Urine UA Negative (Negative); Leukocyte Esterase Urine Negative (Negative); Nitrite Urine Negative (Negative); PH 5.5 (5.0-9.0); Specific Gravity - Urine 1.025 (1.005-1.025); UMIC TRIGGER UA YES; Urine Blood Trace (Negative); Urine Ketones Negative (Negative); Urine Protein 300 (3+) mg/dL (Neg-Trace)
--- NOTE | 2023-01-29 02:04 | ED.PSYCH ---
HPI - Psych General Chief Complaint: Psychiatric Symptoms Stated Complaint: si with drug use Time Seen by Provider: 01/29/23 01:36 Source: patient Mode of arrival: EMS Limitations: no limitations History of Present Illness HPI Narrative: Patient homeless with history of substance abuse and depression comes in with suicidal ideation with plan to hang himself patient very sleepy on arrival says has multiple complaints and multiple reasons substance abuse is one of the reason Related Data Home Medications Medication Instructions Recorded Confirmed albuterol sulfate 90 mcg/actuation 2 puff inhalation Q4H PRN 01/29/23 01/29/23 aerosol inhaler Shortness Of Breath Or Wheezing nicotine (polacrilex) 4 mg gum 4 mg PO Q2H PRN Nicotine Cravings 01/29/23 01/29/23 nicotine 21 mg/24 hr daily 1 patch topical DAILY 01/29/23 01/29/23 transdermal patch risperidone 0.25 mg tablet 0.25 mg PO BID 01/29/23 01/29/23 trazodone 50 mg tablet 50 mg PO BEDTIME 01/29/23 01/29/23 Allergies Allergy/AdvReac Type Severity Reaction Status Date / Time No Known Allergies Allergy Unverified 08/12/22 13:46 [No Known Allergies*] Review of Systems Review of Systems: Yes all other systems are reviewed and are negative PMFSH Past Medical History Medical History Asthma Substance abuse Social History Social History Alcohol intake: never Substance Use Type: Former Substance User Advance Directives: No Advance Directives Information Provided: Yes Healthcare Proxy: No Guardian: No Physical Exam Vital Signs: Vital Signs: Last Vital Signs Temp 97.8 F 01/29/23 01:16 Pulse 82 01/29/23 01:16 Resp 16 01/29/23 01:16 BP 141/71 H 01/29/23 01:16 Pulse Ox 97 01/29/23 01:16 O2 Del Method Room Air 01/29/23 01:16 BMI result Body Mass Index 25.2 Appearance: Alert. Oriented X3. No acute distress. unkept Eyes: PERRLA, No Nystagmus ENT: Pharynx normal. Oral Mucosa moist Neck: Normal inspection. Neck supple. CVS: Normal heart rate and rhythm. Pulses normal. Respiratory: No respiratory distress. Equal air entry bilateral, no wheezing/rales/rhonchi Abdomen: Soft and nontender. Bowel sounds are present, no mass palpable, no CVA tenderness Skin: Skin warm and dry. Normal skin color. Normal skin turgor. Extremities: No lower extremity edema. No calf tenderness psych patient lethargic sleepy claims that he is depressed and SI no hallucination or delusion Neuro: Oriented X 3. No motor deficit. No sensory deficit.No cerebellar signs , cranial nerves II-XII intact Medical Decision Making Medical Decision Making MDM Narrative: Patient polysubstance abuse depression with SI feels multiple reasons will get care team evaluation for psych evaluation Lab Data MDM Lab Attestation statement: I reviewed the patient's lab results. 01/29/23 01:50 01/29/23 01:50 Labs: Lab Results 01/29/23 01/29/23 01/29/23 Range/Units 01:49 01:49 01:50 WBC (4.8-10.8) X10*3/uL RBC (4.60-5.80) X10*6/uL Hgb (14.0-18.0) g/dl Hct (42.0-52.0) % MCV (80.0-98.0) fL MCH (27.0-33.0) pg MCHC (31.0-36.0) g/dl RDW (11.0-16.0) % Plt Count (160-400) X10*3/uL MPV (9.4-12.4) fL Immature Gran % (Auto) (0.0-0.4) % Neut % (Auto) (45-73) % Lymph % (Auto) (20-40) % [place] % (Auto) (2-11) % Eos % (Auto) (0-4) % Baso % (Auto) (0-2) % Lymph # (Auto) (1.2-4.9) X10*3/uL [place] # (Auto) (0.1-1.2) X10*3/uL Eos # (Auto) (0.0-0.4) X10*3/uL Baso # (Auto) (0.0-0.2) X10*3/uL Abs Immat Gran (auto) (0.00-0.03) X10*3/uL Absolute Neuts (auto) (2.0-8.3) x10*3/uL Absolute Nucleated RBC (0.0-0.012) X10*3/uL Nucleated RBC % (auto) (0.0-0.2) /100WBC Sodium (135-145) mmol/L Potassium (3.3-5.1) mmol/L Chloride (96-108) mmol/L Carbon Dioxide (22-29) mmol/L Anion Gap (12-20) BUN (9-16) mg/dL Creatinine (0.5-1.4) mg/dL Estim Creat Clear Calc Estimated GFR Random Glucose (60-115) mg/dL Calcium (8.4-10.2) mg/dL Total Bilirubin (0.0-1.0) mg/dL AST (5-37) U/L ALT (0-40) U/L Alkaline Phosphatase (39-117) U/L Total Protein (6.5-8.0) g/dL Albumin (3.5-5.0) g/dL Urine Color Dark Yellow Urine Appearance Cloudy Urine pH 5.5 (5.0-9.0) Ur Specific Bertrand 1.025 (1.005-1.025) Urine Protein 300 (3+) H (Neg-Trace) mg/dL Urine Glucose (UA) Negative (Negative) mg/dL Urine Ketones Negative (Negative) mg/dL Urine Blood Trace H (Negative) Urine Nitrite Negative (Negative) Ur Leukocyte Esterase Negative (Negative) Urine RBC 3-5 H (0-2) /HPF Urine WBC 6-10 H (0-5) /HPF Ur Squamous Epith Cells 3-5 (0-2) /HPF Urine Bacteria None Seen (None Seen) Hyaline Casts 6-10 (0-2) /LPF Urine Opiates Screen POSITIVE H (Not Detect) Urine Fentanyl Screen POSITIVE H (Not Detect) Ur Barbiturates Screen Not Detected (Not Detect) Ur Phencyclidine Scrn Not Detected (Not Detect) Ur Amphetamines Screen Not Detected (Not Detect) U Benzodiazepines Scrn Not Detected (Not Detect) Urine Cocaine Screen POSITIVE H (Not Detect) U Marijuana (THC) Screen POSITIVE H (Not Detect) Ethyl Alcohol mg/dL COVID-19 (PATRICIA) Negative (Negative) COVID-19 Clin Com See Note 01/29/23 01/29/23 Range/Units 01:50 01:50 WBC 6.4 (4.8-10.8) X10*3/uL RBC 4.07 L (4.60-5.80) X10*6/uL Hgb 12.3 L (14.0-18.0) g/dl Hct 36.7 L (42.0-52.0) % MCV 90.2 (80.0-98.0) fL MCH 30.2 (27.0-33.0) pg MCHC 33.5 (31.0-36.0) g/dl RDW 12.3 (11.0-16.0) % Plt Count 230 (160-400) X10*3/uL MPV 9.3 L (9.4-12.4) fL Immature Gran % (Auto) 0.5 H (0.0-0.4) % Neut % (Auto) 78.4 H (45-73) % Lymph % (Auto) 14.0 L (20-40) % [place] % (Auto) 6.1 (2-11) % Eos % (Auto) 0.5 (0-4) % Baso % (Auto) 0.5 (0-2) % Lymph # (Auto) 0.9 L (1.2-4.9) X10*3/uL [place] # (Auto) 0.4 (0.1-1.2) X10*3/uL Eos # (Auto) 0.0 (0.0-0.4) X10*3/uL Baso # (Auto) 0.0 (0.0-0.2) X10*3/uL Abs Immat Gran (auto) 0.03 (0.00-0.03) X10*3/uL Absolute Neuts (auto) 5.0 (2.0-8.3) x10*3/uL Absolute Nucleated RBC 0.000 (0.0-0.012) X10*3/uL Nucleated RBC % (auto) 0.0 (0.0-0.2) /100WBC Sodium 141 (135-145) mmol/L Potassium 3.8 (3.3-5.1) mmol/L Chloride 104 (96-108) mmol/L Carbon Dioxide 27 (22-29) mmol/L Anion Gap 14 (12-20) BUN 24 H (9-16) mg/dL Creatinine 1.38 (0.5-1.4) mg/dL Estim Creat Clear Calc 61.8 Estimated GFR 55 Random Glucose 101 (60-115) mg/dL Calcium 9.2 (8.4-10.2) mg/dL Total Bilirubin 0.4 (0.0-1.0) mg/dL AST 66 H (5-37) U/L ALT 57 H (0-40) U/L Alkaline Phosphatase 79 (39-117) U/L Total Protein 7.0 (6.5-8.0) g/dL Albumin 4.1 (3.5-5.0) g/dL Urine Color Urine Appearance Urine pH (5.0-9.0) Ur Specific Bertrand (1.005-1.025) Urine Protein (Neg-Trace) mg/dL Urine Glucose (UA) (Negative) mg/dL Urine Ketones (Negative) mg/dL Urine Blood (Negative) Urine Nitrite (Negative) Ur Leukocyte Esterase (Negative) Urine RBC (0-2) /HPF Urine WBC (0-5) /HPF Ur Squamous Epith Cells (0-2) /HPF Urine Bacteria (None Seen) Hyaline Casts (0-2) /LPF Urine Opiates Screen (Not Detect) Urine Fentanyl Screen (Not Detect) Ur Barbiturates Screen (Not Detect) Ur Phencyclidine Scrn (Not Detect) Ur Amphetamines Screen (Not Detect) U Benzodiazepines Scrn (Not Detect) Urine Cocaine Screen (Not Detect) U Marijuana (THC) Screen (Not Detect) Ethyl Alcohol < 10 mg/dL COVID-19 (PATRICIA) (Negative) COVID-19 Clin Com Discharge Plan Discharge Clinical Impression: Substance abuse, Suicidal ideation, Depression Patient Disposition: Still a Patient Prescriptions: No Action trazodone 50 mg tablet 50 mg PO BEDTIME risperidone 0.25 mg tablet 0.25 mg PO BID nicotine (polacrilex) 4 mg gum 4 mg PO Q2H PRN (Reason: Nicotine Cravings) nicotine 21 mg/24 hr patch 24 hour 1 patch topical DAILY albuterol sulfate 90 mcg/actuation HFA aerosol inhaler 2 puff INHALATION Q4H PRN (Reason: Shortness Of Breath Or Wheezing) Interventions: [place]-Suicide Risk Severity Scale Last Done: 01/29/23 06:00
[2023-01-29 02:05] LABS: Bacteria Urine None Seen (None Seen)
[2023-01-29 02:06] LABS: Amphetamine Screen Urine Not Detected (Not Detect); Barbiturates, Urine Not Detected (Not Detect); Benzodiazepines Screen Urine Not Detected (Not Detect); Cannabinoid Screen Urine POSITIVE (Not Detect); Cocaine Screen Urine POSITIVE (Not Detect); Fentanyl, urine POSITIVE (Not Detect); Opiate Screen Urine POSITIVE (Not Detect); Phencyclidine Screen Urine Not Detected (Not Detect)
[2023-01-29 02:14] LABS: Alanine Aminotransferase 57 U/L (0-40); Albumin Level 4.1 g/dL (3.5-5.0); Alkaline Phosphatase 79 U/L (39-117); Anion Gap 14 (12-20); Aspartate Amino Transferase 66 U/L (5-37); Bilirubin Total 0.4 mg/dL (0.0-1.0); Blood Urea Nitrogen 24 mg/dL (9-16); COVID-19 Test Negative (Negative); Calcium 9.2 mg/dL (8.4-10.2); Carbon Dioxide 27 mmol/L (22-29); Chloride 104 mmol/L (96-108); Creatinine Clr Calc Pharmacy 61.8; Estimated Glomerular Filt Rate 55; Ethanol < 10 mg/dL; Glucose Random 101 mg/dL (60-115); IDNOW Serial# 08D9AD1C; Potassium 3.8 mmol/L (3.3-5.1); Sodium 141 mmol/L (135-145)
--- NOTE | 2023-01-29 06:08 | PC.NURSE ---
Patient slept through the night, no distress observed/reported, disposition per care team is section 12 dual diagnosis bed search, med rec completed/pending provider's approval, labs completed/resulted, behavior non concerning, no safety concerns, will continue to monitor.
--- NOTE | 2023-01-29 10:07 | ECG_ITS ---
Test Reason : check prolong qt Blood Pressure : / mmHG Vent. Rate : 064 BPM Atrial Rate : 064 BPM P-R Int : 128 ms QRS Dur : 074 ms QT Int : 446 ms P-R-T Axes : 020 056 009 degrees QTc Int : 460 ms Normal sinus rhythm Normal ECG When compared with ECG of 31-MAY-2017 06:49, Vent. rate has decreased BY 37 BPM T wave amplitude has increased in Lateral leads Referred By: Sina Busby Electronically Signed By:JOSS POLANCO MD
--- NOTE | 2023-01-29 12:41 | PC.NURSE ---
Pt seen by care team. Difficult arousal. Pt up to bathroom. Offered food and drink. In room eating at this time. No dangerous behaviors noted.
[2023-01-29 12:43] VITALS: BP 149/107; PULSE 80; RESP 16; TEMP 36.7; O2SAT 99
--- NOTE | 2023-01-29 14:25 | MHC.RECOVSUP ---
Met with pt in [facility] for potential ATS. Pt reports using 2-3 bags of heroin intravenously a day for the past 8 months. Pt shares he is interested in ATS, T/W is working on a bed search. Pt has no other questions or concerns at this time.
--- NOTE | 2023-01-29 16:13 | PC.NURSE ---
Pt ate. Sleeping most of the shift. Wakes to voice. Being discharged to Detox.
[2023-01-29 16:14] VITALS: BP 152/101; PULSE 82; RESP 15; TEMP 36.9; O2SAT 97
--- NOTE | 2023-01-29 16:15 | MHC.RECOVSUP ---
Pt accepted to [facility], arranging Lyft for intake.
== END 2023-01-29 16:45 | disposition home or self-care (01) ==
PROVIDERS: Emergency Provider Internal Medicine
DX: F33.1 Major depressive disorder, recurrent, moderate (principal); R45.851 Suicidal ideations; F11.10 Opioid abuse, uncomplicated; F14.10 Cocaine abuse, uncomplicated; I45.81 Long QT syndrome; Z20.822 Contact with and (suspected) exposure to COVID-19; Z20.828 Contact with and (suspected) exposure to other viral communicable diseases; Z79.899 Other long term (current) drug therapy
CPT/HCPCS: 36415; 80053; 80307; 81001; 82077; 85025; 87635; 93005; 99284; S9485

== ENCOUNTER 2023-03-27 01:59 | Inpatient (IN) | payer OTHER, SELFPAY ==
[2023-03-27 02:04] VITALS: BP 140/80; BP 144/88; PULSE 78; RESP 18; TEMP 36.6; O2SAT 98; O2SAT 99; BMI 25.8
--- NOTE | 2023-03-27 02:12 | PC.NURSE ---
Pt changed by security and belongings secured at this time.
--- NOTE | 2023-03-27 02:40 | ED_ITS ---
HPI - Psych General Chief Complaint: Psychiatric Symptoms Stated Complaint: si Time Seen by Provider: 03/27/23 02:32 Source: patient and EMS Mode of arrival: EMS Limitations: no limitations History of Present Illness HPI Narrative: Patient comes in the emergency room via ambulance. The patient reports that he attempted to commit suicide today approximately 5 hours ago. Patient states he attempted to hang himself by wrapping curtain laces on his neck. Patient states that he snapped, the next thing he remembers he was on the floor. Patient admits to using 2 bags of heroin. Denies HI Related Data Home Medications Medication Instructions Recorded Confirmed albuterol sulfate 90 mcg/actuation 2 puff inhalation Q4H PRN 01/29/23 01/29/23 aerosol inhaler Shortness Of Breath Or Wheezing nicotine (polacrilex) 4 mg gum 4 mg PO Q2H PRN Nicotine Cravings 01/29/23 01/29/23 nicotine 21 mg/24 hr daily 1 patch topical DAILY 01/29/23 01/29/23 transdermal patch risperidone 0.25 mg tablet 0.25 mg PO BID 01/29/23 01/29/23 trazodone 50 mg tablet 50 mg PO BEDTIME 01/29/23 01/29/23 Allergies Allergy/AdvReac Type Severity Reaction Status Date / Time No Known Allergies Allergy Unverified 08/12/22 13:46 [No Known Allergies*] Review of Systems Review of Systems: Constitutional : No Weight loss, No Fever, No Chills, No Night Sweats, No Fatigue, No Malaise ENT/Mouth : No Hearing loss, No Ear Pain, No Nasal Congestion, No Sinus Pain, No Hoarseness, No sore throat, No Rhinorrhea, No Swallowing Difficulty Eyes: No Eye Pain, No Swelling, No Redness, No Foreign Body, No Discharge, No Vision Changes Cardiovascular : No Chest Pain, No SOB, No Dyspnea on Exertion, No Orthopnea, No Edema, No Palpitations Respiratory : No Cough, No Sputum, No Wheezing, No Smoke Exposure, No Dyspnea Gastrointestinal : No Nausea, No Vomiting, No Diarrhea, No Constipation, No abdominal Pain, No Hematochezia, No Melena Genitourinary : no irregular bleeding, No Dysuria, No Urinary Frequency, No Hematuria, No Urinary Incontinence, No Urgency, No Flank Pain, No Urinary Flow Changes, No Hesitancy Musculoskeletal : No joint pain, No Myalgias, No Joint Swelling Skin : No Skin Lesions, No rash Neuro : No Weakness, No Numbness, No Paresthesias, No Loss of Consciousness, No Dizziness, No Headache Psych : Complaining of depression, complaining of suicidal ideation, attempted suicide, no homicidal ideation. Admits to drug use. Heme/Lymph: No Bruising, No Bleeding,No Lymphadenopathy Endocrine : No Polyuria, No Polydipsia, No Temperature Intolerance [facility] Past Medical History Medical History Asthma Substance abuse Social History Social History Alcohol intake: never Smoked in Last 30 Days: No Use of substances other than those prescribed or required for medical reasons: Yes Substance Use Type: Heroin Substance Use Frequency: Chronic Longstanding Last Used Substance: Just Prior to Admission Physical Exam Vital Signs: Vital Signs: Last Vital Signs Temp 97.8 F 03/27/23 02:04 Pulse 78 03/27/23 02:04 Resp 18 03/27/23 02:04 BP 140/80 H 03/27/23 02:04 Pulse Ox 98 03/27/23 02:04 O2 Del Method Room Air 03/27/23 02:04 BMI result Body Mass Index 25.8 Const: Other: Appearance: Alert. Oriented X3. No acute distress. Somnolent but easily arousable, able to hold coherent conversations Eyes: Pupils equal, round and reactive to light. ENT: Pharynx normal. Neck: Normal inspection. Neck supple. No lymph nodes noted. No crepitus CVS: Normal heart rate and rhythm. Pulses normal. Normal S1 and S2 Respiratory: No respiratory distress. Breath sounds normal. No Wheezing. No ral es Abdomen: Soft and nontender. No rigidity. No distention. Skin: Skin warm and dry. Normal skin color. Normal skin turgor. Extremities: No lower extremity edema. No Lacerations. No Rash Neuro: Oriented X 3. No motor deficit. No sensory deficit. Moving all extremities. No slurred speech. CN 2 through 12 grossly intact Psych: calm, cooperative, normal affect Course Course Course Narrative: - patient's labs pending -patient is on a Section 12 -care team consult pending -patient is on a one-to-one -physician observation started at 02:40 Discharge Plan Discharge Clinical Impression: Substance abuse, Suicide attempt Patient Disposition: Still a Patient Prescriptions: No Action trazodone 50 mg tablet 50 mg PO BEDTIME risperidone 0.25 mg tablet 0.25 mg PO BID nicotine (polacrilex) 4 mg gum 4 mg PO Q2H PRN (Reason: Nicotine Cravings) nicotine 21 mg/24 hr patch 24 hour 1 patch topical DAILY albuterol sulfate 90 mcg/actuation HFA aerosol inhaler 2 puff INHALATION Q4H PRN (Reason: Shortness Of Breath Or Wheezing) Interventions: [place]-Suicide Risk Severity Scale Last Done: 03/27/23 02:27
[2023-03-27 03:01] LABS: MANUAL DIFF FLAG NO
[2023-03-27 03:02] LABS: Basophils Percent Auto 0.4 % (0-2); Eosinophils Absolute Auto 0.1 X10*3/uL (0.0-0.4); Eosinophils Percent Auto 1.4 % (0-4); Hematocrit 30.7 % (42.0-52.0); Hemoglobin 10.2 g/dl (14.0-18.0); Imm Gran Abs Auto 0.01 X10*3/uL (0.00-0.03); Imm Gran Pct Auto 0.2 % (0.0-0.4); Lymphocytes Absolute Auto 1.2 X10*3/uL (1.2-4.9); Lymphocytes Percent Auto 23.5 % (20-40); Mean Corpuscular HGB Conc 33.2 g/dl (31.0-36.0); Mean Corpuscular Hemoglobin 30.5 pg (27.0-33.0); Mean Corpuscular Volume 91.9 fL (80.0-98.0); Mean Platelet Volume 8.9 fL (9.4-12.4); Monocytes Absolute Auto 0.3 X10*3/uL (0.1-1.2); Monocytes Percent Auto 6.7 % (2-11); Neutrophils Absolute Auto 3.3 x10*3/uL (2.0-8.3); Neutrophils Percent Auto 67.8 % (45-73); Platelet Count 315 X10*3/uL (160-400); Red Blood Count 3.34 X10*6/uL (4.60-5.80); Red Cell Distribution Width 12.5 % (11.0-16.0); White Blood Count 4.9 X10*3/uL (4.8-10.8)
[2023-03-27 03:29] LABS: Alanine Aminotransferase 66 U/L (0-40); Albumin Level 3.3 g/dL (3.5-5.0); Alkaline Phosphatase 99 U/L (39-117); Anion Gap 12 (12-20); Aspartate Amino Transferase 63 U/L (5-37); Bilirubin Total 0.2 mg/dL (0.0-1.0); Blood Urea Nitrogen 27 mg/dL (9-16); Carbon Dioxide 29 mmol/L (22-29); Chloride 105 mmol/L (96-108); Creatinine Clr Calc Pharmacy 60.5; Estimated Glomerular Filt Rate 54; Ethanol < 10 mg/dL; Glucose Random 151 mg/dL (60-115); Potassium 3.9 mmol/L (3.3-5.1); Sodium 142 mmol/L (135-145); Total Protein 6.6 g/dL (6.5-8.0)
[2023-03-27 05:39] VITALS: BP 127/75; PULSE 79; RESP 18; O2SAT 99
[2023-03-27 06:12] LABS: COVID-19 Test Negative (Negative); IDNOW Serial# 6674DD1D
--- NOTE | 2023-03-27 06:31 | PC.NURSE ---
Patient just got transferred from main ED, independent gait, provided urine sample, no distress reported at this time, per report patient slept through the night, med rec reviewed off his medication for months, behavior non concerning, VSS, care consult ordered/pending evaluation, will continue to monitor.
[2023-03-27 06:42] LABS: Appearance Urine Clear; Color Urine Yellow; Glucose Urine UA 500 mg/dL (Negative); Leukocyte Esterase Urine Negative (Negative); Nitrite Urine Negative (Negative); Specific Gravity - Urine 1.025 (1.005-1.025); Urine Blood Negative (Negative); Urine Ketones Negative (Negative); Urine Protein Trace mg/dL (Neg-Trace)
[2023-03-27 07:03] LABS: Amphetamine Screen Urine Not Detected (Not Detect); Barbiturates, Urine Not Detected (Not Detect); Benzodiazepines Screen Urine Not Detected (Not Detect); Cannabinoid Screen Urine POSITIVE (Not Detect); Cocaine Screen Urine POSITIVE (Not Detect); Fentanyl, urine POSITIVE (Not Detect); Opiate Screen Urine POSITIVE (Not Detect); Phencyclidine Screen Urine Not Detected (Not Detect)
--- NOTE | 2023-03-27 12:23 | PC.NURSE ---
Pt reports using 2 bags of Heroin yesterday. He refused a shower at this time reporting he is too tired. He claims he attempted suicide 1 year ago.
--- NOTE | 2023-03-27 14:20 | ECG_ITS ---
Test Reason : COCAINE USE Blood Pressure : / mmHG Vent. Rate : 067 BPM Atrial Rate : 067 BPM P-R Int : 128 ms QRS Dur : 070 ms QT Int : 408 ms P-R-T Axes : 047 004 025 degrees QTc Int : 431 ms Normal sinus rhythm with sinus arrhythmia Normal ECG When compared with ECG of 29-JAN-2023 10:22, No significant change was found Referred By: Generic ED Physician Electronically Signed By:Carlos Adame
--- NOTE | 2023-03-27 16:36 | MHC.CARE ---
Pt seen by CARE team, disposition is for inpatient level of care.
--- NOTE | 2023-03-27 17:51 | PC.NURSE ---
Pt refused to participate in admission assessment, tobacco use & alcohol use unknown
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
[2023-03-27 21:57] VITALS: BP 141/89; PULSE 65; RESP 18; TEMP 36.2; O2SAT 99
[2023-03-27 21:59] VITALS: PULSE 65
[2023-03-27] MEDS: Acetaminophen 325 MG TABLET 650 MG PO (22:09)
[2023-03-27] MEDS: Dicyclomine HCl 10 MG CAPSULE PO (22:09)
[2023-03-27] MEDS: Ibuprofen 600 MG TABLET PO (22:10)
[2023-03-27] MEDS: cloNIDine HCL 0.1 MG TABLET PO (22:10)
--- NOTE | 2023-03-28 01:18 | PC.NURSE ---
Pt appeared to be sleeping soundly, respirations unlabored and even.
[2023-03-28] MEDS: Ibuprofen 600 MG TABLET PO (07:08)
[2023-03-28] MEDS: Acetaminophen 325 MG TABLET 650 MG PO (07:08)
[2023-03-28] MEDS: cloNIDine HCL 0.1 MG TABLET PO ×2 (07:09→10:53)
--- NOTE | 2023-03-28 09:08 | HO.PSYADMNOT ---
HPI Date of Service: 03/28/23 Chief Complaint: si Sources of Information: patient interviewed, chart reviewed and crisis/core team assessment reviewed HPI Subjective Notes: Pitt Warning (given and shows understanding) and Conditional Voluntary Narrative: Mr. Osman is a 47 year-old male with hx of opioid use disorder, cocaine use disorder who called 911 reporting increase depression and SI with plan to hang himself in an abandon building in [place] in context of ongoing substance use, unstable place to live and strained relationship with due to his substance use. In the ED, pt's utox was positive for fentanyl, opioids, cocaine, cannabis. On the unit, pt presented with active symptoms of opioid withdrawal including GI, muscle aches, anxious and restless mood. VS slightly elevated. Pt denied suicidal or homicidal ideation. He initially requested methadone taper to manage opioid withdrawal. He was given one time dose of methadone of 20mg po and started on COWS protocol. He was given comfort medications for muscle cramps, GI. He denied visual or auditory hallucinations. The interview was limited as pt was physically unwell due to opioid withdrawal. Past Psychiatric History: Inpatient: pt reports several years one admission, unclear details. OP: none Medical Evaluation Reviewed: Yes [facility] Medical History Asthma Substance abuse Diagnostics Vital Signs (24Hr): Vital Signs - 24 hr 03/27/23 21:57 Temperature 97.2 F Pulse Rate 65 Respiratory Rate 18 Blood Pressure 141/89 H Pulse Oximetry 99 Oxygen Delivery Method Room Air BMI result Body Mass Index 25.8 Labs 03/27/23 02:57 03/27/23 02:57 Labs: Laboratory Results - last 48 hr 03/27/23 03/27/23 03/27/23 02:57 02:57 05:36 WBC 4.9 RBC 3.34 L Hgb 10.2 L Hct 30.7 L MCV 91.9 MCH 30.5 MCHC 33.2 RDW 12.5 Plt Count 315 D MPV 8.9 L Immature Gran % (Auto) 0.2 Neut % (Auto) 67.8 Lymph % (Auto) 23.5 [place] % (Auto) 6.7 Eos % (Auto) 1.4 Baso % (Auto) 0.4 Lymph # (Auto) 1.2 [place] # (Auto) 0.3 Eos # (Auto) 0.1 Baso # (Auto) 0.0 Abs Immat Gran (auto) 0.01 Absolute Neuts (auto) 3.3 Absolute Nucleated RBC 0.000 Nucleated RBC % (auto) 0.0 Sodium 142 Potassium 3.9 Chloride 105 Carbon Dioxide 29 Anion Gap 12 BUN 27 H Creatinine 1.41 H Estim Creat Clear Calc 60.5 Estimated GFR 54 Random Glucose 151 H Calcium 9.0 Total Bilirubin 0.2 AST 63 H ALT 66 H Alkaline Phosphatase 99 Total Protein 6.6 Albumin 3.3 L Urine Color Urine Appearance Urine pH Ur Specific [place] Urine Protein Urine Glucose (UA) Urine Ketones Urine Blood Urine Nitrite Ur Leukocyte Esterase Urine Opiates Screen Urine Fentanyl Screen Ur Barbiturates Screen Ur Phencyclidine Scrn Ur Amphetamines Screen U Benzodiazepines Scrn Urine Cocaine Screen U Marijuana (THC) Screen Ethyl Alcohol < 10 COVID-19 (PATRICIA) Negative COVID-19 [employer] Com See Note 03/27/23 03/27/23 06:33 06:33 WBC RBC Hgb Hct MCV MCH MCHC RDW Plt Count MPV Immature Gran % (Auto) Neut % (Auto) Lymph % (Auto) [place] % (Auto) Eos % (Auto) Baso % (Auto) Lymph # (Auto) [place] # (Auto) Eos # (Auto) Baso # (Auto) Abs Immat Gran (auto) Absolute Neuts (auto) Absolute Nucleated RBC Nucleated RBC % (auto) Sodium Potassium Chloride Carbon Dioxide Anion Gap BUN Creatinine Estim Creat Clear Calc Estimated GFR Random Glucose Calcium Total Bilirubin AST ALT Alkaline Phosphatase Total Protein Albumin Urine Color Yellow Urine Appearance Clear Urine pH 6.0 Ur Specific [place] 1.025 Urine Protein Trace Urine Glucose (UA) 500 H Urine Ketones Negative Urine Blood Negative Urine Nitrite Negative Ur Leukocyte Esterase Negative Urine Opiates Screen POSITIVE H Urine Fentanyl Screen POSITIVE H Ur Barbiturates Screen Not Detected Ur Phencyclidine Scrn Not Detected Ur Amphetamines Screen Not Detected U Benzodiazepines Scrn Not Detected Urine Cocaine Screen POSITIVE H U Marijuana (THC) Screen POSITIVE H Ethyl Alcohol COVID-19 (PATRICIA) COVID-19 [employer] Com Meds/Allergies Meds Home Medications Medication Instructions Recorded Confirmed Type No Known Home Meds 03/27/23 03/27/23 History Allergies Allergies Allergy/AdvReac Type Severity Reaction Status Date / Time No Known Allergies Allergy Unverified 08/12/22 13:46 [No Known Allergies*] Mental Status Exam Mental Status Exam Narrative: Appearance:malnourish, wearing hospital gown, poor hygiene, with physical symptoms of opioid withdrawal. Behavior: engagement in interview limited due to opioid withdrawal symptoms. Psychomotor: no agitation or retardation noted Speech: clear, normal rate/rhythm/volume, spontaneous TP: linear TC: no overt psychosis, withdrawing from opioids, not physically well Mood: not well Affect: congruent SI: denies HI: denies VH/AH: denies Delusions: none Insight/judgment: fair x 2. Memory/cog: alert, oriented x 3. Assessment & Plan Assessment & Plan (1) Substance induced mood disorder: Status: Acute Code(s): F19.94 - Other psychoactive substance use, unspecified with psychoactive substance-induced mood disorder (2) Opioid use disorder, moderate, dependence: Status: Acute Code(s): F11.20 - Opioid dependence, uncomplicated (3) Cocaine use disorder, moderate, dependence: Status: Acute Code(s): F14.20 - Cocaine dependence, uncomplicated Plan Mr. Osman is a 47 year-old male with hx of cocaine, opioid use disorder who self presented to [facility] ED after calling 911 reporting suicidal ideation with plan to hang himself in abandon building. Pt denies suicidal or homicidal ideation. He presents with symptoms of opioid withdrawal- given comfort medications, started on methadone taper and COWS. Pt later demands to be discharged, denies any suicidal or homicidal ideation. He declines further referrals for treatment. PLAN 1. Admit to M3, CV, 15 minutes checks for safety. 2. COWS, comfort medications including clonidine, muscle relaxant. Ordered consult to addiction services to offer pt additional supports and MAT options. 3. Aftercare planning. Patient educated on: diagnosis, medication risk/benefits and substance abuse Reason for continued inpatient stay Substantial Risk for: harm to self Statement Statement: I have reviewed the history and physical and performed a pertinent examination on my patient. No changes have occurred unless specified. If the History and Physical was not performed prior to admission, the Hospitalist's service will be consulted for completing the admission physical. Time Spent With Patient Time: Total time managing care of this patient today ____ minutes.
[2023-03-28 10:46] VITALS: PULSE 95
[2023-03-28 10:47] VITALS: BP 157/107; PULSE 95; RESP 16
[2023-03-28] MEDS: Cyclobenzaprine HCl 5 MG TABLET PO (10:53)
[2023-03-28] MEDS: hydrOXYzine HCL 25 MG TABLET PO (10:53)
[2023-03-28] MEDS: methADONE HCl 20 MG/2 ML ORAL.CONC PO (10:59)
--- NOTE | 2023-03-28 11:41 | MHC.RECOVRN ---
Attempted to meet with pt after receiving Addiction Medicine Consult, pt requesting t/w return at another time.
--- NOTE | 2023-03-28 14:15 | PC.NURSE ---
At about 1330 pt came out of his room, demanding to be given his belongings and seeking discharge. Cori Ewing NP notified, assessed pt, and ordered Narcan. Rose Marie Mayer, pricing supervisor notified. Pt denies SI/HI/VH/AH. Pt instructed that he was leaving against the advice of the hospital. Pt consented, AMA paperwork signed by pt and 2 RNs. Pt left unit without issue, in behavioral control, security present.
--- NOTE | 2023-03-28 15:05 | P.DS_ITS ---
DS: Providers Provider Date of Service: 03/28/23 Date of admission: 03/27/23 16:35 Primary care physician: [facility] Consults: 03/28/23 10:35 Addiction Medicine Routine Consulting Provider: Addiction Covering Reason for consultation: opioid w/o methadone taper Has provider been notified: Yes DS: Diagnosis Discharge Diagnosis (1) Opioid use disorder, moderate, dependence: Status: Acute (2) Cocaine use disorder, moderate, dependence: Status: Acute (3) Substance induced mood disorder: Status: Acute DS: Medications Discharge Medications Home Medications: Home Medications Medication Instructions Recorded Confirmed No Known Home Meds 03/27/23 03/27/23 Mental Status Exam Mental Status Exam Narrative: Appearance:malnourish, wearing hospital gown, poor hygiene, with physical symptoms of opioid withdrawal. Behavior: engagement in interview limited due to opioid withdrawal symptoms. Psychomotor: no agitation or retardation noted Speech: clear, normal rate/rhythm/volume, spontaneous TP: linear TC: no overt psychosis, withdrawing from opioids, not physically well Mood: not well Affect: congruent SI: denies HI: denies VH/AH: denies Delusions: none Insight/judgment: fair x 2. Memory/cog: alert, oriented x 3. Data Data Completed and Pending Completed studies during hospitalization [Text1]: 03/27/23 03/27/23 03/27/23 02:57 02:57 05:36 WBC 4.9 RBC 3.34 L Hgb 10.2 L Hct 30.7 L MCV 91.9 MCH 30.5 MCHC 33.2 RDW 12.5 Plt Count 315 D MPV 8.9 L Immature Gran % (Auto) 0.2 Neut % (Auto) 67.8 Lymph % (Auto) 23.5 [place] % (Auto) 6.7 Eos % (Auto) 1.4 Baso % (Auto) 0.4 Lymph # (Auto) 1.2 [place] # (Auto) 0.3 Eos # (Auto) 0.1 Baso # (Auto) 0.0 Abs Immat Gran (auto) 0.01 Absolute Neuts (auto) 3.3 Absolute Nucleated RBC 0.000 Nucleated RBC % (auto) 0.0 Sodium 142 Potassium 3.9 Chloride 105 Carbon Dioxide 29 Anion Gap 12 BUN 27 H Creatinine 1.41 H Estim Creat Clear Calc 60.5 Estimated GFR 54 Random Glucose 151 H Calcium 9.0 Total Bilirubin 0.2 AST 63 H ALT 66 H Alkaline Phosphatase 99 Total Protein 6.6 Albumin 3.3 L Urine Color Urine Appearance Urine pH Ur Specific [place] Urine Protein Urine Glucose (UA) Urine Ketones Urine Blood Urine Nitrite Ur Leukocyte Esterase Urine Opiates Screen Urine Fentanyl Screen Ur Barbiturates Screen Ur Phencyclidine Scrn Ur Amphetamines Screen U Benzodiazepines Scrn Urine Cocaine Screen U Marijuana (THC) Screen Ethyl Alcohol < 10 COVID-19 (PATRICIA) Negative COVID-19 Clin Com See Note 03/27/23 03/27/23 06:33 06:33 WBC RBC Hgb Hct MCV MCH MCHC RDW Plt Count MPV Immature Gran % (Auto) Neut % (Auto) Lymph % (Auto) [place] % (Auto) Eos % (Auto) Baso % (Auto) Lymph # (Auto) [place] # (Auto) Eos # (Auto) Baso # (Auto) Abs Immat Gran (auto) Absolute Neuts (auto) Absolute Nucleated RBC Nucleated RBC % (auto) Sodium Potassium Chloride Carbon Dioxide Anion Gap BUN Creatinine Estim Creat Clear Calc Estimated GFR Random Glucose Calcium Total Bilirubin AST ALT Alkaline Phosphatase Total Protein Albumin Urine Color Yellow Urine Appearance Clear Urine pH 6.0 Ur Specific [place] 1.025 Urine Protein Trace Urine Glucose (UA) 500 H Urine Ketones Negative Urine Blood Negative Urine Nitrite Negative Ur Leukocyte Esterase Negative Urine Opiates Screen POSITIVE H Urine Fentanyl Screen POSITIVE H Ur Barbiturates Screen Not Detected Ur Phencyclidine Scrn Not Detected Ur Amphetamines Screen Not Detected U Benzodiazepines Scrn Not Detected Urine Cocaine Screen POSITIVE H U Marijuana (THC) Screen POSITIVE H Ethyl Alcohol COVID-19 (PATRICIA) COVID-19 Clin Com DS: Summary Hospital Course Hospital Course: Subjective Notes: [place] Warning (given and shows understanding) and Conditional Voluntary Narrative: Mr. Osman is a 47 year-old male with hx of opioid use disorder, cocaine use disorder who called 911 reporting increase depression and SI with plan to hang himself in an abandon building in [place] in context of ongoing substance use, unstable place to live and strained relationship with due to his substance use. In the ED, pt's utox was positive for fentanyl, opioids, cocaine, cannabis. On the unit, pt presented with active symptoms of opioid withdrawal including GI, muscle aches, anxious and restless mood. VS slightly elevated. Pt denied suicidal or homicidal ideation. He initially requested methadone taper to manage opioid withdrawal. He was given one time dose of methadone of 20mg po and started on COWS protocol. He was given comfort medications for muscle cramps, GI. He denied visual or auditory hallucinations. The interview was limited as pt was physically unwell due to opioid withdrawal. Past Psychiatric History: Inpatient: pt reports several years one admission, unclear details. OP: none Medical Evaluation Reviewed: Yes HOSPITAL COURSE On the unit, pt presented with opioid withdrawal symptoms. He was offered comDocebo rt meds and addiction medicne met with pt. Pt received methadone 20mg po once. Pt denied suicidal or homicidal ideation. Pt demanded to be discharged and presented as increasingly more agitated, which suspect related to craving substances. He was given narcan prior to discharged and he declined further referrals for psychiatric treatment or substance use. Time Spent with Patient Time attestation: Total time managing care of this patient today ____ minutes. Discharge Plan Discharge Anticipated Discharge Date/Time: 03/28/23 13:00 Patient Disposition: Left Against Medical Advice Discharge Diagnosis: Opioid Use Disorder Cocaine use disorder Substance induced mood disorder Referrals: [facility] [Primary Care Provider] - 1 Week Discharge Medications: No Action No Known Home Meds Discharge Orders: Discharge Order (Routine); Ordered 03/28/23 Ordered By: Cori Henning Diet: Regular diet Activity on Discharge: As tolerated Care Plan Goals: 1. Pt denies SI/HI 2. HArm reduction- narcan given on discharge Health Concerns: follow up with PCP Plan of Treatment: Given Narcan on discharge Assessment: Pt calmer, although superficially cooperative. Denies SI/HI. Declines referral for psychiatric or substance use treatment. Given narcan on discharge. Discharge Date/Time: 03/28/23 14:32
== END 2023-03-28 14:32 | disposition left against medical advice (07) | DRG 770 ==
LOC: HO.ED 14:31 → HO.PADLT16 17:06
PROVIDERS: Admitting Provider Psychiatry & Neurology Psychiatry; Emergency Provider Emergency Medicine; Visit Provider Psychiatry & Neurology Psychiatry
DX: F19.14 Other psychoactive substance abuse with psychoactive substance-induced mood disorder (principal); R45.851 Suicidal ideations; F11.20 Opioid dependence, uncomplicated; J45.909 Unspecified asthma, uncomplicated; Z20.822 Contact with and (suspected) exposure to COVID-19; F14.20 Cocaine dependence, uncomplicated; Z59.02 Unsheltered homelessness
CPT/HCPCS: 36415; 80053; 80307; 81003; 85025; 87635; 93005; 99285; S9485

== ENCOUNTER 2023-03-29 22:05 | Emergency (ER) | payer MEDICAID, SELFPAY ==
[2023-03-29] VITALS (9 sets, daily range): BP systolic 107–162; BP diastolic 68–81; PULSE 82–120; RESP 16–28; O2SAT 96–98; BMI 27.1
[2023-03-29] MEDS: LORazepam 2 MG/ML VIAL IM (22:15)
[2023-03-29] MEDS: Haloperidol Lactate 5 MG/ML VIAL IM (22:15)
[2023-03-29] MEDS: diphenhydrAMINE HCL 50 MG/ML VIAL IM (22:15)
--- NOTE | 2023-03-29 22:43 | ED_ITS ---
HPI - General Adult General Chief complaint: ETOH/Substance Use Stated complaint: od agitaded Time Seen by Provider: 03/29/23 22:13 History of Present Illness HPI narrative: Patient is a 47-year-old male with a history of polysubstance abuse. History of cocaine opiate abuse. Presented today diaphoretic agitated. Sent in for further evaluation. Patient found agitated. He did not state any suicidal homicidal ideation. Related Data Home Medications Medication Instructions Recorded Confirmed No Known Home Meds 03/27/23 03/27/23 Allergies Allergy/AdvReac Type Severity Reaction Status Date / Time No Known Allergies Allergy Verified 03/29/23 22:38 [No Known Allergies*] Review of Systems Review of Systems: Patient refused to answer review of system PMFSH Past Medical History Attestation statement: The following information was validated with the patient. Medical History Asthma Substance abuse Social History Social History Household Members: None Housing: Homeless Unable to assess alcohol history related to: Unknown Alcohol intake: never Patient Tobacco Use Status: Tobacco use Unknown Substance Use Type: Crack/Cocaine, Marijuana and Opiates Advance Directives: No Advance Directives Information Provided: Yes Physical Exam ED Vital Signs: Vital Signs - 24 hr 03/29/23 22:37 03/29/23 22:47 03/29/23 23:01 Temperature Pulse Rate 82 83 Respiratory Rate 28 H 17 17 Blood Pressure 142/81 H 126/76 Pulse Oximetry 96 97 Oxygen Delivery Method Room Air 03/29/23 23:15 03/29/23 22:30 03/29/23 22:45 Temperature Pulse Rate 83 Respiratory Rate 26 H 16 16 Blood Pressure 142/81 H Pulse Oximetry 96 Oxygen Delivery Method Room Air 03/29/23 23:00 03/29/23 23:31 03/30/23 00:00 Temperature Pulse Rate 83 82 72 Respiratory Rate 16 Blood Pressure 126/76 107/68 116/72 Pulse Oximetry 96 98 98 Oxygen Delivery Method Room Air Room Air 03/30/23 02:00 03/30/23 03:00 03/30/23 06:06 Temperature 97.1 F Pulse Rate 63 59 Respiratory Rate 19 14 Blood Pressure 137/86 124/82 133/86 Pulse Oximetry 99 100 Oxygen Delivery Method Room Air Room Air 03/30/23 07:14 Temperature Pulse Rate 94 Respiratory Rate 16 Blood Pressure 127/77 Pulse Oximetry 99 Oxygen Delivery Method Room Air BMI result Body Mass Index 27.1 Appearance: Agitated moving all around Eyes: Pupils equal, round and reactive to light. ENT: Pharynx normal. Neck: Normal inspection. Neck supple. No lymph nodes noted. No crepitus CVS: Normal heart rate and rhythm. Pulses normal. Normal S1 and S2 Respiratory: No respiratory distress. Breath sounds normal. No Wheezing. No rales Abdomen: Soft and nontender. No rigidity. No distention. good BS x4 Skin: Skin warm and dry. Normal skin color. Normal skin turgor. Extremities: No lower extremity edema. Neurovascular intact to all extremities. No Lacerations. No Rash Neuro: Oriented X 3. No motor deficit. No sensory deficit. Moving all extermities. No slurred speech Medications Administered Discontinued Medications Generic Name Dose Route Start Last Admin Trade Name Freq PRN Reason Stop Dose Admin Diphenhydramine HCl 50 mg 03/29/23 22:14 03/29/23 22:15 Diphenhydramine Hcl 50 Mg/Ml Vial IM 03/29/23 22:15 50 mg ONCE ONE Administration Haloperidol Lactate 5 mg 03/29/23 22:14 03/29/23 22:15 Haloperidol Lactate 5 Mg/Ml Vial IM 03/29/23 22:15 5 mg ONCE ONE Administration Sodium Chloride 1,000 mls @ 999 mls/hr 03/29/23 22:15 03/29/23 23:50 Ns IV 03/29/23 23:15 Infused .Q1H1M CASSIDY Infusion Sodium Chloride 1,000 mls @ 999 mls/hr 03/29/23 22:15 03/29/23 23:50 Ns IV 03/29/23 23:15 Infused .Q1H1M CASSIDY Infusion Lorazepam 2 mg 03/29/23 22:14 03/29/23 22:15 Lorazepam 2 Mg/Ml Vial IM 03/29/23 22:15 2 mg ONCE ONE Administration Medical Decision Making Medical Decision Making MDM Narrative: Patient extremely agitated moving around requiring multiple security system engineer along with [place] police to be present. Patient diaphoretic. Question using cocaine heroin has a long history of polysubstance abuse. Given patient's agitation potential for self-harm patient was medicated using Haldol, Ativan, Benadryl. Will monitor patient's condition carefully. After approximately 15-20 minutes patient is now sedated. Will take up patient's restraints. We will continue to monitor and give patient IV fluids. Will check electrolytes for possible rhabdo. Patient's electrolytes showed no evidence of rhabdo. CPK 622. Patient's after medication has been calm. When patient nikhil up will re-evaluate patient's mental status. His U tox came back positive for narcotics and also cocaine. History of the same in the past. Will re-evaluate patient if he is suicidal or not. His symptoms are more likely secondary to polysubstance abuse Differential Diagnosis Differential Diagnoses: The differential diagnosis associated with the presentation includes Polysubstance abuse, electrolyte disturbance, psychiatric disorder Admission/Observation Consideration of admission/observation: Escalation of care including admission/observation considered Lab Data MDM Lab Attestation statement: I reviewed the patient's lab results. 03/29/23 22:40 03/29/23 22:40 Labs: Lab Results 03/29/23 03/29/23 03/29/23 Range/Units 22:40 22:40 22:40 WBC 4.5 L (4.8-10.8) X10*3/uL RBC 3.37 L (4.60-5.80) X10*6/uL Hgb 10.3 L (14.0-18.0) g/dl Hct 31.2 L (42.0-52.0) % MCV 92.6 (80.0-98.0) fL MCH 30.6 (27.0-33.0) pg MCHC 33.0 (31.0-36.0) g/dl RDW 12.6 (11.0-16.0) % Plt Count 327 (160-400) X10*3/uL MPV 9.5 (9.4-12.4) fL Immature Gran % (Auto) 0.4 (0.0-0.4) % Neut % (Auto) 66.5 (45-73) % Lymph % (Auto) 22.6 (20-40) % [place] % (Auto) 8.5 (2-11) % Eos % (Auto) 1.1 (0-4) % Baso % (Auto) 0.9 (0-2) % Lymph # (Auto) 1.0 L (1.2-4.9) X10*3/uL [place] # (Auto) 0.4 (0.1-1.2) X10*3/uL Eos # (Auto) 0.1 (0.0-0.4) X10*3/uL Baso # (Auto) 0.0 (0.0-0.2) X10*3/uL Abs Immat Gran (auto) 0.02 (0.00-0.03) X10*3/uL Absolute Neuts (auto) 3.0 (2.0-8.3) x10*3/uL Absolute Nucleated RBC 0.000 (0.0-0.012) X10*3/uL Nucleated RBC % (auto) 0.0 (0.0-0.2) /100WBC Sodium 142 (135-145) mmol/L Potassium 4.7 D (3.3-5.1) mmol/L Chloride 108 (96-108) mmol/L Carbon Dioxide 26 (22-29) mmol/L Anion Gap 13 (12-20) BUN 35 H (9-16) mg/dL Creatinine 1.30 (0.5-1.4) mg/dL Estim Creat Clear Calc 77.1 Estimated GFR 59 Random Glucose 95 (60-115) mg/dL Calcium 8.9 (8.4-10.2) mg/dL Total Bilirubin 0.3 (0.0-1.0) mg/dL Direct Bilirubin 0.1 (0.0-0.5) mg/dL AST 57 H (5-37) U/L ALT 68 H (0-40) U/L Alkaline Phosphatase 95 (39-117) U/L Total Creatine Kinase 622 H (38-174) U/L Total Protein 7.1 (6.5-8.0) g/dL Albumin 3.7 (3.5-5.0) g/dL Urine Color Urine Appearance Urine pH (5.0-9.0) Ur Specific Groom (1.005-1.025) Urine Protein (Neg-Trace) mg/dL Urine Glucose (UA) (Negative) mg/dL Urine Ketones (Negative) mg/dL Urine Blood (Negative) Urine Nitrite (Negative) Ur Leukocyte Esterase (Negative) Urine RBC (0-2) /HPF Urine WBC (0-5) /HPF Ur Squamous Epith Cells (0-2) /HPF Urine Bacteria (None Seen) Hyaline Casts (0-2) /LPF Urine Opiates Screen (Not Detect) Urine Fentanyl Screen (Not Detect) Ur Barbiturates Screen (Not Detect) Ur Phencyclidine Scrn (Not Detect) Ur Amphetamines Screen (Not Detect) U Benzodiazepines Scrn (Not Detect) Urine Cocaine Screen (Not Detect) U Marijuana (THC) Screen (Not Detect) Ethyl Alcohol < 10 mg/dL 03/30/23 03/30/23 Range/Units 02:01 02:01 WBC (4.8-10.8) X10*3/uL RBC (4.60-5.80) X10*6/uL Hgb (14.0-18.0) g/dl Hct (42.0-52.0) % MCV (80.0-98.0) fL MCH (27.0-33.0) pg MCHC (31.0-36.0) g/dl RDW (11.0-16.0) % Plt Count (160-400) X10*3/uL MPV (9.4-12.4) fL Immature Gran % (Auto) (0.0-0.4) % Neut % (Auto) (45-73) % Lymph % (Auto) (20-40) % [place] % (Auto) (2-11) % Eos % (Auto) (0-4) % Baso % (Auto) (0-2) % Lymph # (Auto) (1.2-4.9) X10*3/uL [place] # (Auto) (0.1-1.2) X10*3/uL Eos # (Auto) (0.0-0.4) X10*3/uL Baso # (Auto) (0.0-0.2) X10*3/uL Abs Immat Gran (auto) (0.00-0.03) X10*3/uL Absolute Neuts (auto) (2.0-8.3) x10*3/uL Absolute Nucleated RBC (0.0-0.012) X10*3/uL Nucleated RBC % (auto) (0.0-0.2) /100WBC Sodium (135-145) mmol/L Potassium (3.3-5.1) mmol/L Chloride (96-108) mmol/L Carbon Dioxide (22-29) mmol/L Anion Gap (12-20) BUN (9-16) mg/dL Creatinine (0.5-1.4) mg/dL Estim Creat Clear Calc Estimated GFR Random Glucose (60-115) mg/dL Calcium (8.4-10.2) mg/dL Total Bilirubin (0.0-1.0) mg/dL Direct Bilirubin (0.0-0.5) mg/dL AST (5-37) U/L ALT (0-40) U/L Alkaline Phosphatase (39-117) U/L Total Creatine Kinase (38-174) U/L Total Protein (6.5-8.0) g/dL Albumin (3.5-5.0) g/dL Urine Color Yellow Urine Appearance Clear Urine pH 5.5 (5.0-9.0) Ur Specific Groom 1.015 (1.005-1.025) Urine Protein Negative (Neg-Trace) mg/dL Urine Glucose (UA) Negative (Negative) mg/dL Urine Ketones Negative (Negative) mg/dL Urine Blood Negative (Negative) Urine Nitrite Negative (Negative) Ur Leukocyte Esterase Negative (Negative) Urine RBC 0-2 (0-2) /HPF Urine WBC 0-5 (0-5) /HPF Ur Squamous Epith Cells 0-2 (0-2) /HPF Urine Bacteria None Seen (None Seen) Hyaline Casts 0-2 (0-2) /LPF Urine Opiates Screen POSITIVE H (Not Detect) Urine Fentanyl Screen POSITIVE H (Not Detect) Ur Barbiturates Screen Not Detected (Not Detect) Ur Phencyclidine Scrn Not Detected (Not Detect) Ur Amphetamines Screen Not Detected (Not Detect) U Benzodiazepines Scrn Not Detected (Not Detect) Urine Cocaine Screen POSITIVE H (Not Detect) U Marijuana (THC) Screen Not Detected (Not Detect) Ethyl Alcohol mg/dL Critical Care Time Critical Care Time Critical Care Time: Yes Total Critical Care Time: 40 Attestation: I have personally provided 40 minutes of critical care time exclusive of time spent on separately billable procedures. Time includes review of lab data, radiology results, discussion with consultants, and monitoring for potential de compensation. Interventions were performed as documented above Discharge Plan Discharge Clinical Impression: Opioid use disorder, moderate, dependence, Cocaine use disorder, moderate, dependence, Substance abuse Patient Disposition: Still a Patient Prescriptions: No Action No Known Home Meds
[2023-03-29 22:47] LABS: Eosinophils Absolute Auto 0.1 X10*3/uL (0.0-0.4); Eosinophils Percent Auto 1.1 % (0-4); Hemoglobin 10.3 g/dl (14.0-18.0); Mean Platelet Volume 9.5 fL (9.4-12.4); Monocytes Absolute Auto 0.4 X10*3/uL (0.1-1.2); PLT CLUMP 1; Red Cell Distribution Width 12.6 % (11.0-16.0); SCAN SMEAR FLAG 1
[2023-03-29 22:49] LABS: Basophils Percent Auto 0.9 % (0-2); Hematocrit 31.2 % (42.0-52.0); Imm Gran Abs Auto 0.02 X10*3/uL (0.00-0.03); Imm Gran Pct Auto 0.4 % (0.0-0.4); Lymphocytes Percent Auto 22.6 % (20-40); Mean Corpuscular Hemoglobin 30.6 pg (27.0-33.0); Mean Corpuscular Volume 92.6 fL (80.0-98.0); Monocytes Percent Auto 8.5 % (2-11); Neutrophils Percent Auto 66.5 % (45-73); Red Blood Count 3.37 X10*6/uL (4.60-5.80)
[2023-03-29] MEDS: 0.9 % Sodium Chloride 1,000 ML 999 ML IV ×2 (22:49)
[2023-03-29 22:58] LABS: Ethanol < 10 mg/dL
[2023-03-29 23:01] LABS: Alanine Aminotransferase 68 U/L (0-40); Albumin Level 3.7 g/dL (3.5-5.0); Alkaline Phosphatase 95 U/L (39-117); Anion Gap 13 (12-20); Aspartate Amino Transferase 57 U/L (5-37); Bilirubin Direct 0.1 mg/dL (0.0-0.5); Bilirubin Total 0.3 mg/dL (0.0-1.0); Blood Urea Nitrogen 35 mg/dL (9-16); Calcium 8.9 mg/dL (8.4-10.2); Carbon Dioxide 26 mmol/L (22-29); Chloride 108 mmol/L (96-108); Creatinine Clr Calc Pharmacy 77.1; Estimated Glomerular Filt Rate 59; Glucose Random 95 mg/dL (60-115); Potassium 4.7 mmol/L (3.3-5.1); Sodium 142 mmol/L (135-145); Total Protein 7.1 g/dL (6.5-8.0)
[2023-03-29 23:06] LABS: MANUAL DIFF FLAG NO; Platelet Count 327 X10*3/uL (160-400); White Blood Count 4.5 X10*3/uL (4.8-10.8)
[2023-03-30] VITALS (14 sets, daily range): BP systolic 111–140; BP diastolic 64–86; PULSE 59–100; RESP 14–20; TEMP 36.2–36.8; O2SAT 97–100
[2023-03-30 02:07] LABS: Appearance Urine Clear; Color Urine Yellow; Glucose Urine UA Negative (Negative); Leukocyte Esterase Urine Negative (Negative); Nitrite Urine Negative (Negative); PH 5.5 (5.0-9.0); Specific Gravity - Urine 1.015 (1.005-1.025); Urine Blood Negative (Negative); Urine Ketones Negative (Negative); Urine Protein Negative (Neg-Trace)
[2023-03-30 02:12] LABS: Bacteria Urine None Seen (None Seen); Hyaline Casts Urine 0-2 /LPF (0-2); RBC Urine 0-2 /HPF (0-2); Squamous Epithelial Cell Urine 0-2 /HPF (0-2); WBC Urine 0-5 /HPF (0-5)
[2023-03-30 02:25] LABS: Amphetamine Screen Urine Not Detected (Not Detect); Barbiturates, Urine Not Detected (Not Detect); Benzodiazepines Screen Urine Not Detected (Not Detect); Cannabinoid Screen Urine Not Detected (Not Detect); Cocaine Screen Urine POSITIVE (Not Detect); Fentanyl, urine POSITIVE (Not Detect); Opiate Screen Urine POSITIVE (Not Detect); Phencyclidine Screen Urine Not Detected (Not Detect)
--- NOTE | 2023-03-30 07:16 | PC.NURSE ---
Patient resting quietly in bed at this time. Sleepy but arousable to verbal stimulation VSS.
--- NOTE | 2023-03-30 14:19 | PC.NURSE ---
Alert and responsive. Denies pain or discomfort. States he is tried and wants to sleep. VSS.
--- NOTE | 2023-03-30 14:40 | PC.NURSE ---
Patient more alert. Resting comfortably eating lunch, denies pain or sob. Voided large amount of clear urine into urinal.
--- NOTE | 2023-03-30 15:35 | PC.NURSE ---
Alert and oriented. Complaining of shoulder pain during altercation with police last night. Does not remember what led to him ending up in the hospital. Provided with food and fluids.
[2023-03-30] MEDS: Acetaminophen 325 MG TABLET 650 MG PO (15:40)
--- NOTE | 2023-03-30 15:51 | PC.NURSE ---
Medicated for left shoulder pain. declined x ray of shoulder despite education.
--- NOTE | 2023-03-30 18:13 | MHC.CARE ---
Addendum entered by Rosalinda Jones ELEVATOR PILOT 03/30/23 18:53: in a LYFT in the morning after checking in with pt and [facility]. Original Note: Pt is a 47 year old male who is known to the CARE Team. Pt was administratively discharged from [facility] over the weekend after demanding to be discharged. CARE Team meets with pt briefly, as pt is difficult to rouse and very groggy. Pt indicates that he needs to be on a section 35. Pt reports that if he was in a section 35 facility he would not be suicidal. Be identifies that substance use if his primary concern, and he is suicidal in the context of feeling hopeless and helpless. Plan if for pt to remain in the ED overnight and for the CARE Team to send pt to the court in a LUF
--- NOTE | 2023-03-30 18:53 | MHC.EDTECH ---
THIS PCT JUST ASSUMEDS CARE OF PT ,PATIENT ATE 100 % OF DINNER ,DRANK 360 ML FLUIDS ,PT RESTING QUIETLY IN BED .
--- NOTE | 2023-03-30 20:44 | PC.NURSE ---
assumed care of patient at 1900 - pt resting comfortably on stretcher. this RN realized 1:[address] since 15:52 for vague SI statements , messaged not relayed during nurse to nurse report. boat worker made aware, sitter now in place, security called and belongings secured. will CTM.
--- NOTE | 2023-03-30 20:57 | PC.NURSE ---
Pt resting comfortably. No signs of distress. Pt on 1. wctm.
--- NOTE | 2023-03-30 23:52 | MHC.EDTECH ---
PT BELONINGS ARE LOCKED UP IN DECON .
[2023-03-31 06:05] VITALS: BP 158/96; PULSE 74; RESP 16; TEMP 36.6; O2SAT 100
--- NOTE | 2023-03-31 06:06 | PC.NURSE ---
Patient just got transferred from main ED, independent ambulation, med rec reviewed/currently not on any medication due to non compliance, behavior non concerning, disposition per care team is Section 35 in the morning and care team will coordinate the process, will continue to monitor.
--- NOTE | 2023-03-31 07:43 | PC.NURSE ---
report taken from fazal frausto pt here for si in setting of polysubstance, looking for detox. pt seen by care team yesterday, requested with them to be section 35 to [facility] [facility]. per past nursing notes, pt to be reevaled this am with potential transport being coordinated with dc. ambulatory to bathroom this am w steady gait, drank 2 cups of coffee, resting w rr even unlabored in bed. norman.
[2023-03-31 08:55] VITALS: BP 141/112; PULSE 93; RESP 16; TEMP 37; O2SAT 98
[2023-03-31] MEDS: cloNIDine HCL 0.1 MG TABLET PO (08:56)
--- NOTE | 2023-03-31 09:52 | PC.NURSE ---
pt asking to leave and for his clothes. provider made aware, this rn conversing with pt about his previous desires for detox and why the sudden change in plan. pt admits to feelings of withdrawal, not in substance recovery program. infrequent yawning, irritable. not outwardly in acute withdrawal. able to sit still in bed. provider aware of pt, order for clonidine by provider, pt able to tolerate po. some positive effect from medication, pt does continue to come out to nurses station and ask for clothes and to leave. pt redirected, reminded pt needs to have clinician/provider clearance before pt can be dc. pt denies si/hi at this time. care team notified of pt change in plan.
--- NOTE | 2023-03-31 10:32 | MHC.CARE ---
[address] clinician, Therese Draper regarding patient who requested help getting himself committed under a Section 35. 1000 Patient increasingly irritable and impatient throughout the morning, requested his clothes for discharge multiple times. CARE Team waited until he received comfort medication for withdrawal symptoms and then met with patient in 6 to discuss the Section 35 plan this morning. He would not engage in conversation, ?I?m fine, get my clothes, I am leaving,? he denied suicidal thoughts, plan or intention and was dismissive of other questions about family or community support. Patient said he changed his mind and does not want to go to court, wants to go home. Declined offer for detox or to speak Recovery Team. Reviewed case with ED provider, JAREN Ty, since this patient is not on a Section 12A and was here voluntarily seeking help he was cleared to discharge.
== END 2023-03-31 10:37 | disposition home or self-care (01) ==
PROVIDERS: Emergency Provider Emergency Medicine Emergency Medical Services
DX: F33.1 Major depressive disorder, recurrent, moderate (principal); R45.851 Suicidal ideations; F11.229 Opioid dependence with intoxication, unspecified; F14.229 Cocaine dependence with intoxication, unspecified; M25.512 Pain in left shoulder; Z71.51 Drug abuse counseling and surveillance of drug abuser; Z79.899 Other long term (current) drug therapy
CPT/HCPCS: 36415; 80048; 80076; 80307; 81001; 82550; 85025; 96360; 96372; 99285; J1200; J2060

== ENCOUNTER 2023-05-06 02:53 | Emergency (ER) | payer OTHER, MEDICAID, SELFPAY ==
--- NOTE | 2023-05-06 02:56 | ECG_ITS ---
Test Reason : hypertension Blood Pressure : / mmHG Vent. Rate : 089 BPM Atrial Rate : 089 BPM P-R Int : 134 ms QRS Dur : 076 ms QT Int : 396 ms P-R-T Axes : 068 029 -08 degrees QTc Int : 481 ms Normal sinus rhythm Nonspecific ST abnormality Prolonged QT Abnormal ECG When compared with ECG of 27-MAR-2023 14:23, T wave amplitude has decreased in Lateral leads QT has lengthened Referred By: Generic ED Physician Electronically Signed By:Carlos Adame
[2023-05-06 03:13] VITALS: BP 125/80; BP 152/89; PULSE 82; PULSE 98; RESP 16; TEMP 36.4; O2SAT 98; BMI 24.2
[2023-05-06 03:18] VITALS: BP 125/80; PULSE 84; RESP 16; TEMP 36.4; O2SAT 98
--- NOTE | 2023-05-06 03:20 | PC.NURSE ---
Pt presents to ED via EMS after being found complaining of heart problms. Pt stated he was having chest pain, racing heart rate. EMS noted increased BP and HR, placed a 18g IV in the left AC. 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 Pt presents A&Ox4, GCS 15, with warm, dry skin. He is somnolent and continues to fall asleep while I speak with him. Pt reports he drank 3 [employer] Drinks as well as smoked weed and crack. Pt also uses heroin, states he did one bag today. Pt also reports not sleeping since Thursday. Pt stated he is supposed to go to detox on 05/06. Pt placed on load out person, EKG obtained, and blood is being drawn. Pt waiting for ED provider at this time.
[2023-05-06 03:30] LABS: Basophils Percent Auto 0.7 % (0-2); Eosinophils Absolute Auto 0.1 X10*3/uL (0.0-0.4); Eosinophils Percent Auto 2.8 % (0-4); Hematocrit 32.4 % (42.0-52.0); Hemoglobin 10.8 g/dl (14.0-18.0); Imm Gran Abs Auto 0.02 X10*3/uL (0.00-0.03); Imm Gran Pct Auto 0.5 % (0.0-0.4); Lymphocytes Absolute Auto 1.3 X10*3/uL (1.2-4.9); Lymphocytes Percent Auto 30.4 % (20-40); MANUAL DIFF FLAG NO; Mean Corpuscular HGB Conc 33.3 g/dl (31.0-36.0); Mean Corpuscular Hemoglobin 30.5 pg (27.0-33.0); Mean Corpuscular Volume 91.5 fL (80.0-98.0); Mean Platelet Volume 8.5 fL (9.4-12.4); Monocytes Absolute Auto 0.4 X10*3/uL (0.1-1.2); Monocytes Percent Auto 10.3 % (2-11); Neutrophils Absolute Auto 2.4 x10*3/uL (2.0-8.3); Neutrophils Percent Auto 55.3 % (45-73); Platelet Count 223 X10*3/uL (160-400); Red Blood Count 3.54 X10*6/uL (4.60-5.80); Red Cell Distribution Width 12.4 % (11.0-16.0); White Blood Count 4.3 X10*3/uL (4.8-10.8)
[2023-05-06 03:44] LABS: Anion Gap 14 (12-20); Blood Urea Nitrogen 21 mg/dL (9-16); Calcium 9.4 mg/dL (8.4-10.2); Carbon Dioxide 29 mmol/L (22-29); Chloride 104 mmol/L (96-108); Estimated Glomerular Filt Rate > 60; Glucose Random 104 mg/dL (60-115); Potassium 3.7 mmol/L (3.3-5.1); Sodium 143 mmol/L (135-145)
[2023-05-06 03:49] LABS: Troponin-I High Sensitivity < 2.7 ng/L (<3.5-35.0)
--- NOTE | 2023-05-06 04:07 | ED_ITS ---
HPI - Chest Pain General Chief Complaint: Chest Pain Stated Complaint: Tachy/cp Time Seen by Provider: 05/06/23 04:07 Source: patient and EMS Mode of arrival: EMS Limitations: no limitations History of Present Illness HPI narrative: 47-year-old male with history of polysubstance abuse after he drank alcohol last night and use cocaine with her when he passed out, patient claimed that he is homeless in the process of from his life and has no place to go, patient feels suicidal and depressed, no hallucination, no HI. Patient is seeking help to go to detox. Related Data Home Medications Medication Instructions Recorded Confirmed No Known Home Meds 03/31/23 03/31/23 Allergies Allergy/AdvReac Type Severity Reaction Status Date / Time No Known Allergies Allergy Verified 03/29/23 22:38 [No Known Allergies*] Review of Systems Review of Systems: All other systems are reviewed and are negative Constitutional: Reports as per HPI and Reports no additional constitutional complaints Eyes: Reports as per HPI and Reports no additional eye complaints Reports system reviewed and no additional complaints, except as documented Cardiovascular: Reports as per HPI and Reports no additional cardiovascular com plaints Respiratory: Reports as per HPI and Reports no additional respiratory complaints Gastrointestinal: Reports as per HPI and Reports no additional gastrointestinal complaints Genitourinary: Reports no additional female genitourinary complaints Musculoskeletal: Reports no additional musculoskeletal complaints Skin/Breast: Reports system reviewed and no additional complaints, except as docu Psychiatric: Reports no additional psychiatric complaints Endocrine: Reports no additional endocrine complaints Hematologic/Lymphatic: Reports no additional hematologic/lymphatic complaints Allergic/Immunologic: Reports no additional allergic/immunologic complaints Reports system reviewed and no additional complaints, except as documented and Reports Abnormal speech present [facility] Past Medical History Medical History Asthma Substance abuse Social History Social History Household Members: None Housing: Homeless Unable to assess alcohol history related to: Unknown Alcohol intake: never Patient Tobacco Use Status: Tobacco use Unknown Smoked in Last 30 Days: Yes Use of substances other than those prescribed or required for medical reasons: Yes Substance Use Type: Crack/Cocaine, Heroin and Marijuana Substance Use Frequency: Daily Advance Directives: No Advance Directives Information Provided: Yes Physical Exam Vital Signs: Vital Signs: Last Vital Signs Temp 97.5 F 05/06/23 03:18 Pulse 84 05/06/23 03:18 Resp 16 05/06/23 03:18 BP 125/80 05/06/23 03:18 Pulse Ox 98 05/06/23 03:18 O2 Del Method Room Air 05/06/23 03:18 BMI result Body Mass Index 24.2 Course Course Course Narrative: 47-year-old male came in after drinking alcohol and using IV drugs feeling palpitation, patient has no place to go tonight admitted to use heroin and cocaine and alcohol last night feeling depressed and suicidal. Will keep the patient for physician observation and care team evaluation. Medical Decision Making Differential Diagnosis Differential Diagnoses: The differential diagnosis associated with the presentation includes (ACS, depression, suicidal ideation, electrolyte abnormali ty, severe anemia, medical clearance, psych evaluation.) Admission/Observation Consideration of admission/observation: Escalation of care including adm ission/observation considered Lab Data MDM Lab Attestation statement: I reviewed the patient's lab results. 05/06/23 03:25 05/06/23 03:25 Labs: Lab Results 05/06/23 05/06/23 05/06/23 Range/Units 03:25 03:25 03:25 WBC 4.3 L (4.8-10.8) X10*3/uL RBC 3.54 L (4.60-5.80) X10*6/uL Hgb 10.8 L (14.0-18.0) g/dl Hct 32.4 L (42.0-52.0) % MCV 91.5 (80.0-98.0) fL MCH 30.5 (27.0-33.0) pg MCHC 33.3 (31.0-36.0) g/dl RDW 12.4 (11.0-16.0) % Plt Count 223 D (160-400) X10*3/uL MPV 8.5 L (9.4-12.4) fL Immature Gran % (Auto) 0.5 H (0.0-0.4) % Neut % (Auto) 55.3 (45-73) % Lymph % (Auto) 30.4 (20-40) % Burnett % (Auto) 10.3 (2-11) % Eos % (Auto) 2.8 (0-4) % Baso % (Auto) 0.7 (0-2) % Lymph # (Auto) 1.3 (1.2-4.9) X10*3/uL Burnett # (Auto) 0.4 (0.1-1.2) X10*3/uL Eos # (Auto) 0.1 (0.0-0.4) X10*3/uL Baso # (Auto) 0.0 (0.0-0.2) X10*3/uL Abs Immat Gran (auto) 0.02 (0.00-0.03) X10*3/uL Absolute Neuts (auto) 2.4 (2.0-8.3) x10*3/uL Absolute Nucleated RBC 0.000 (0.0-0.012) X10*3/uL Nucleated RBC % (auto) 0.0 (0.0-0.2) /100WBC Sodium 143 (135-145) mmol/L Potassium 3.7 D (3.3-5.1) mmol/L Chloride 104 (96-108) mmol/L Carbon Dioxide 29 (22-29) mmol/L Anion Gap 14 (12-20) BUN 21 H (9-16) mg/dL Creatinine 0.98 (0.5-1.4) mg/dL Estim Creat Clear Calc 84.0 Estimated GFR > 60 Random Glucose 104 (60-115) mg/dL Calcium 9.4 (8.4-10.2) mg/dL Troponin I High Sens < 2.7 (<3.5-35.0) ng/L Independent Interpretation I performed an independent interpretation of an: EKG (Normal sinus rhythm at 89 beats per minute, normal intervals, nonspecific ST abnormalities.) Chronic Conditions Patient?s care impacted by: Other (Alcohol abuse, substance abuse.) Social Determinants Patient?s care significantly limited by Social Determinants of Health including: Inadequate housing Discharge Plan Discharge Clinical Impression: Polysubstance abuse, Suicidal ideation Patient Disposition: Still a Patient Prescriptions: No Action No Known Home Meds
[2023-05-06 05:36] VITALS: BP 123/79; PULSE 68; RESP 15; TEMP 36.6; O2SAT 100
--- NOTE | 2023-05-06 06:44 | PC.NURSE ---
Upon initial assessment, pt denied SI to RN. Stated he was depressed, but did not state he wanted to hurt himself or others.
--- NOTE | 2023-05-06 07:08 | PC.NURSE ---
Pt currently resting, no apparent pain or discomfort noted.Call reed with in reach.
[2023-05-06 07:40] VITALS: BP 122/85; PULSE 53; RESP 12; TEMP 36.6; O2SAT 100
[2023-05-06 15:46] LABS: Appearance Urine Clear; Color Urine Yellow; Glucose Urine UA Negative (Negative); Leukocyte Esterase Urine Negative (Negative); Nitrite Urine Negative (Negative); Specific Gravity - Urine 1.025 (1.005-1.025); Urine Blood Negative (Negative); Urine Ketones Negative (Negative); Urine Protein Negative (Neg-Trace)
[2023-05-06 15:55] LABS: Amphetamine Screen Urine Not Detected (Not Detect); Barbiturates, Urine Not Detected (Not Detect); Benzodiazepines Screen Urine Not Detected (Not Detect); Cannabinoid Screen Urine Not Detected (Not Detect); Cocaine Screen Urine POSITIVE (Not Detect); Fentanyl, urine POSITIVE (Not Detect); Opiate Screen Urine POSITIVE (Not Detect); Phencyclidine Screen Urine Not Detected (Not Detect)
[2023-05-06 17:39] VITALS: BP 144/93; PULSE 62; RESP 18; O2SAT 100
--- NOTE | 2023-05-06 18:20 | PC.NURSE ---
Pt found to be wandering down the [address] eating other patients food, pt alerted to stop eating, and that those trays were not his to eat. Pt got upset with staff but ambulated back to bed. RN aware.
--- NOTE | 2023-05-06 19:12 | PC.NURSE ---
Pt got up and stated he was hungry, when this sports writer went to bring him food, Pt was sleeping, one hour later Pt stood up at stated at staff Where the fuck is my food? Pt told I will grab him something once I finish (This sports writer was with another Pt). Pt then stated you guys are fucking trying to starve me. Then sat in bed. After this sports writer was made aware Pt took food off nurses station down [address].
[2023-05-06 20:10] VITALS: BP 158/91; PULSE 69; RESP 18; TEMP 36.7; O2SAT 99
[2023-05-07] VITALS (7 sets, daily range): BP systolic 141–165; BP diastolic 81–99; PULSE 63–70; RESP 16–20; TEMP 36.6; O2SAT 98–99
[2023-05-07] MEDS: ondansetron HCL 4 MG/2 ML VIAL IVPUSH (05:36)
--- NOTE | 2023-05-07 07:16 | PC.NURSE ---
pt is currently sleeping, respirations even and unlabored
--- NOTE | 2023-05-07 07:18 | ED_ITS ---
HPI - Chest Pain General Chief Complaint: Chest Pain Stated Complaint: Tachy/cp Time Seen by Provider: 05/06/23 04:07 Source: patient and EMS Mode of arrival: EMS Limitations: no limitations Related Data Home Medications Medication Instructions Recorded Confirmed No Known Home Meds 03/31/23 03/31/23 Allergies Allergy/AdvReac Type Severity Reaction Status Date / Time No Known Allergies Allergy Verified 03/29/23 22:38 [No Known Allergies*] PMF Past Medical History Medical History Asthma Substance abuse Social History Social History Household Members: None Housing: Homeless Unable to assess alcohol history related to: Unknown Alcohol intake: never Patient Tobacco Use Status: Tobacco use Unknown Smoked in Last 30 Days: Yes Use of substances other than those prescribed or required for medical reasons: Yes Substance Use Type: Crack/Cocaine, Heroin and Marijuana Substance Use Frequency: Daily Advance Directives: No Advance Directives Information Provided: Yes Physical Exam Vital Signs: Vital Signs: Last Vital Signs Temp 97.8 F 05/07/23 06:14 Pulse 63 05/07/23 06:14 Resp 18 05/07/23 06:14 BP 141/84 H 05/07/23 06:14 Pulse Ox 99 05/07/23 06:14 O2 Del Method Room Air 05/07/23 06:14 BMI result Body Mass Index 24.2 Medications Administered Discontinued Medications Generic Name Dose Route Start Last Admin Trade Name Freq PRN Reason Stop Dose Admin Ondansetron HCl 4 mg 05/07/23 05:32 05/07/23 05:36 Ondansetron Hcl 4 Mg/2 Ml Vial IVPUSH 05/07/23 05:33 4 mg ONCE ONE Administration Medical Decision Making Lab Data 05/06/23 03:25 05/06/23 03:25 Labs: Lab Results 05/06/23 05/06/23 05/06/23 Range/Units 03:25 03:25 03:25 WBC 4.3 L (4.8-10.8) X10*3/uL RBC 3.54 L (4.60-5.80) X10*6/uL Hgb 10.8 L (14.0-18.0) g/dl Hct 32.4 L (42.0-52.0) % MCV 91.5 (80.0-98.0) fL MCH 30.5 (27.0-33.0) pg MCHC 33.3 (31.0-36.0) g/dl RDW 12.4 (11.0-16.0) % Plt Count 223 D (160-400) X10*3/uL MPV 8.5 L (9.4-12.4) fL Immature Gran % (Auto) 0.5 H (0.0-0.4) % Neut % (Auto) 55.3 (45-73) % Lymph % (Auto) 30.4 (20-40) % [place] % (Auto) 10.3 (2-11) % Eos % (Auto) 2.8 (0-4) % Baso % (Auto) 0.7 (0-2) % Lymph # (Auto) 1.3 (1.2-4.9) X10*3/uL [place] # (Auto) 0.4 (0.1-1.2) X10*3/uL Eos # (Auto) 0.1 (0.0-0.4) X10*3/uL Baso # (Auto) 0.0 (0.0-0.2) X10*3/uL Abs Immat Gran (auto) 0.02 (0.00-0.03) X10*3/uL Absolute Neuts (auto) 2.4 (2.0-8.3) x10*3/uL Absolute Nucleated RBC 0.000 (0.0-0.012) X10*3/uL Nucleated RBC % (auto) 0.0 (0.0-0.2) /100WBC Sodium 143 (135-145) mmol/L Potassium 3.7 D (3.3-5.1) mmol/L Chloride 104 (96-108) mmol/L Carbon Dioxide 29 (22-29) mmol/L Anion Gap 14 (12-20) BUN 21 H (9-16) mg/dL Creatinine 0.98 (0.5-1.4) mg/dL Estim Creat Clear Calc 84.0 Estimated GFR > 60 Random Glucose 104 (60-115) mg/dL Calcium 9.4 (8.4-10.2) mg/dL Troponin I High Sens < 2.7 (<3.5-35.0) ng/L Urine Color Urine Appearance Urine pH (5.0-9.0) Ur Specific [place] (1.005-1.025) Urine Protein (Neg-Trace) mg/dL Urine Glucose (UA) (Negative) mg/dL Urine Ketones (Negative) mg/dL Urine Blood (Negative) Urine Nitrite (Negative) Ur Leukocyte Esterase (Negative) Urine Opiates Screen (Not Detect) Urine Fentanyl Screen (Not Detect) Ur Barbiturates Screen (Not Detect) Ur Phencyclidine Scrn (Not Detect) Ur Amphetamines Screen (Not Detect) U Benzodiazepines Scrn (Not Detect) Urine Cocaine Screen (Not Detect) U Marijuana (THC) Screen (Not Detect) 05/06/23 05/06/23 Range/Units 15:37 15:37 WBC (4.8-10.8) X10*3/uL RBC (4.60-5.80) X10*6/uL Hgb (14.0-18.0) g/dl Hct (42.0-52.0) % MCV (80.0-98.0) fL MCH (27.0-33.0) pg MCHC (31.0-36.0) g/dl RDW (11.0-16.0) % Plt Count (160-400) X10*3/uL MPV (9.4-12.4) fL Immature Gran % (Auto) (0.0-0.4) % Neut % (Auto) (45-73) % Lymph % (Auto) (20-40) % [place] % (Auto) (2-11) % Eos % (Auto) (0-4) % Baso % (Auto) (0-2) % Lymph # (Auto) (1.2-4.9) X10*3/uL [place] # (Auto) (0.1-1.2) X10*3/uL Eos # (Auto) (0.0-0.4) X10*3/uL Baso # (Auto) (0.0-0.2) X10*3/uL Abs Immat Gran (auto) (0.00-0.03) X10*3/uL Absolute Neuts (auto) (2.0-8.3) x10*3/uL Absolute Nucleated RBC (0.0-0.012) X10*3/uL Nucleated RBC % (auto) (0.0-0.2) /100WBC Sodium (135-145) mmol/L Potassium (3.3-5.1) mmol/L Chloride (96-108) mmol/L Carbon Dioxide (22-29) mmol/L Anion Gap (12-20) BUN (9-16) mg/dL Creatinine (0.5-1.4) mg/dL Estim Creat Clear Calc Estimated GFR Random Glucose (60-115) mg/dL Calcium (8.4-10.2) mg/dL Troponin I High Sens (<3.5-35.0) ng/L Urine Color Yellow Urine Appearance Clear Urine pH 7.0 (5.0-9.0) Ur Specific [place] 1.025 (1.005-1.025) Urine Protein Negative (Neg-Trace) mg/dL Urine Glucose (UA) Negative (Negative) mg/dL Urine Ketones Negative (Negative) mg/dL Urine Blood Negative (Negative) Urine Nitrite Negative (Negative) Ur Leukocyte Esterase Negative (Negative) Urine Opiates Screen POSITIVE H (Not Detect) Urine Fentanyl Screen POSITIVE H (Not Detect) Ur Barbiturates Screen Not Detected (Not Detect) Ur Phencyclidine Scrn Not Detected (Not Detect) Ur Amphetamines Screen Not Detected (Not Detect) U Benzodiazepines Scrn Not Detected (Not Detect) Urine Cocaine Screen POSITIVE H (Not Detect) U Marijuana (THC) Screen Not Detected (Not Detect) Discharge Plan Discharge Clinical Impression: Polysubstance abuse, Suicidal ideation Patient Disposition: Still a Patient Prescriptions: No Action No Known Home Meds
--- NOTE | 2023-05-07 09:37 | PC.NURSE ---
benton at bedside to evaluate the pt
--- NOTE | 2023-05-07 09:46 | PC.NURSE ---
pt sleeping will wake up to voice command after few attempts, pt not wanting to answer questions, finally states that he is withdrawing from heroin- reports pain all over and some nausea, pt used a day ago and uses a bundle a day. pt has been sleeping this entire time and right back to sleep when this rn is talking to this pt. pt also reports that he is suicidal
--- NOTE | 2023-05-07 11:20 | PC.NURSE ---
resting- ate snack/fluids. no distress noted
--- NOTE | 2023-05-07 14:12 | PC.NURSE ---
aox4. declines bp but stable and no complaints except generalized discomfort.
--- NOTE | 2023-05-07 14:35 | MHC.RECOVSUP ---
Met with pt in [facility] who is here for [facility]. Pt reports using 1 bundle of heroin a day intravenously and espinosa no history or interest in MAT. Pt has experienced 4 overdoses but cannot recall when the last one was, and has been to [facility]S a few months ago. Pt is currently interested in ATS and a bed search is in process.
--- NOTE | 2023-05-07 15:02 | PC.NURSE ---
ersting- ate well. no distress.
--- NOTE | 2023-05-07 16:36 | PC.NURSE ---
contacted care team form update. recovery team specialist mary coming for update. pt alert. vomiting. see cows. offering med for nausea. pt declined bp -notifying. rest of vss.
[2023-05-07] MEDS: Ondansetron ODT 4 MG TAB.RAPDIS TRANSLINGU (18:03)
--- NOTE | 2023-05-07 18:41 | MHC.CARE ---
patient seen by CARE team earlier today, has been cleared by CARE for recovery or discharge at this time.
--- NOTE | 2023-05-07 19:07 | ED_ITS ---
HPI - Chest Pain General Chief Complaint: Chest Pain Stated Complaint: Tachy/cp Time Seen by Provider: 05/06/23 04:07 Source: patient and EMS Mode of arrival: EMS Limitations: no limitations Related Data Home Medications Medication Instructions Recorded Confirmed No Known Home Meds 03/31/23 03/31/23 Allergies Allergy/AdvReac Type Severity Reaction Status Date / Time No Known Allergies Allergy Verified 03/29/23 22:38 [No Known Allergies*] PMFSH Past Medical History Medical History Asthma Substance abuse Social History Social History Household Members: None Housing: Homeless Unable to assess alcohol history related to: Unknown Alcohol intake: never Patient Tobacco Use Status: Tobacco use Unknown Smoked in Last 30 Days: Yes Use of substances other than those prescribed or required for medical reasons: Yes Substance Use Type: Crack/Cocaine, Heroin and Marijuana Substance Use Frequency: Daily Advance Directives: No Advance Directives Information Provided: Yes Healthcare Proxy: No Guardian: No Physical Exam Vital Signs: Vital Signs: Last Vital Signs Temp 97.8 F 05/07/23 14:11 Pulse 68 05/07/23 16:39 Resp 16 05/07/23 16:39 BP 149/87 H 05/07/23 16:39 Pulse Ox 99 05/07/23 16:39 O2 Del Method Room Air 05/07/23 16:39 BMI result Body Mass Index 24.2 Medications Administered Discontinued Medications Generic Name Dose Route Start Last Admin Trade Name Freq PRN Reason Stop Dose Admin Ondansetron HCl 4 mg 05/07/23 05:32 05/07/23 05:36 Ondansetron Hcl 4 Mg/2 Ml Vial IVPUSH 05/07/23 05:33 4 mg ONCE ONE Administration Ondansetron HCl 4 mg 05/07/23 16:41 05/07/23 18:03 Ondansetron Odt 4 Mg Tab.Rapdis TRANSLINGU 05/07/23 16:42 4 mg ONCE ONE Administration Medical Decision Making Lab Data 05/06/23 03:25 05/06/23 03:25 Labs: Lab Results 05/06/23 05/06/23 05/06/23 Range/Units 03:25 03:25 03:25 WBC 4.3 L (4.8-10.8) X10*3/uL RBC 3.54 L (4.60-5.80) X10*6/uL Hgb 10.8 L (14.0-18.0) g/dl Hct 32.4 L (42.0-52.0) % MCV 91.5 (80.0-98.0) fL MCH 30.5 (27.0-33.0) pg MCHC 33.3 (31.0-36.0) g/dl RDW 12.4 (11.0-16.0) % Plt Count 223 D (160-400) X10*3/uL MPV 8.5 L (9.4-12.4) fL Immature Gran % (Auto) 0.5 H (0.0-0.4) % Neut % (Auto) 55.3 (45-73) % Lymph % (Auto) 30.4 (20-40) % [place] % (Auto) 10.3 (2-11) % Eos % (Auto) 2.8 (0-4) % Baso % (Auto) 0.7 (0-2) % Lymph # (Auto) 1.3 (1.2-4.9) X10*3/uL [place] # (Auto) 0.4 (0.1-1.2) X10*3/uL Eos # (Auto) 0.1 (0.0-0.4) X10*3/uL Baso # (Auto) 0.0 (0.0-0.2) X10*3/uL Abs Immat Gran (auto) 0.02 (0.00-0.03) X10*3/uL Absolute Neuts (auto) 2.4 (2.0-8.3) x10*3/uL Absolute Nucleated RBC 0.000 (0.0-0.012) X10*3/uL Nucleated RBC % (auto) 0.0 (0.0-0.2) /100WBC Sodium 143 (135-145) mmol/L Potassium 3.7 D (3.3-5.1) mmol/L Chloride 104 (96-108) mmol/L Carbon Dioxide 29 (22-29) mmol/L Anion Gap 14 (12-20) BUN 21 H (9-16) mg/dL Creatinine 0.98 (0.5-1.4) mg/dL Estim Creat Clear Calc 84.0 Estimated GFR > 60 Random Glucose 104 (60-115) mg/dL Calcium 9.4 (8.4-10.2) mg/dL Troponin I High Sens < 2.7 (<3.5-35.0) ng/L Urine Color Urine Appearance Urine pH (5.0-9.0) Ur Specific [place] (1.005-1.025) Urine Protein (Neg-Trace) mg/dL Urine Glucose (UA) (Negative) mg/dL Urine Ketones (Negative) mg/dL Urine Blood (Negative) Urine Nitrite (Negative) Ur Leukocyte Esterase (Negative) Urine Opiates Screen (Not Detect) Urine Fentanyl Screen (Not Detect) Ur Barbiturates Screen (Not Detect) Ur Phencyclidine Scrn (Not Detect) Ur Amphetamines Screen (Not Detect) U Benzodiazepines Scrn (Not Detect) Urine Cocaine Screen (Not Detect) U Marijuana (THC) Screen (Not Detect) 05/06/23 05/06/23 Range/Units 15:37 15:37 WBC (4.8-10.8) X10*3/uL RBC (4.60-5.80) X10*6/uL Hgb (14.0-18.0) g/dl Hct (42.0-52.0) % MCV (80.0-98.0) fL MCH (27.0-33.0) pg MCHC (31.0-36.0) g/dl RDW (11.0-16.0) % Plt Count (160-400) X10*3/uL MPV (9.4-12.4) fL Immature Gran % (Auto) (0.0-0.4) % Neut % (Auto) (45-73) % Lymph % (Auto) (20-40) % [place] % (Auto) (2-11) % Eos % (Auto) (0-4) % Baso % (Auto) (0-2) % Lymph # (Auto) (1.2-4.9) X10*3/uL [place] # (Auto) (0.1-1.2) X10*3/uL Eos # (Auto) (0.0-0.4) X10*3/uL Baso # (Auto) (0.0-0.2) X10*3/uL Abs Immat Gran (auto) (0.00-0.03) X10*3/uL Absolute Neuts (auto) (2.0-8.3) x10*3/uL Absolute Nucleated RBC (0.0-0.012) X10*3/uL Nucleated RBC % (auto) (0.0-0.2) /100WBC Sodium (135-145) mmol/L Potassium (3.3-5.1) mmol/L Chloride (96-108) mmol/L Carbon Dioxide (22-29) mmol/L Anion Gap (12-20) BUN (9-16) mg/dL Creatinine (0.5-1.4) mg/dL Estim Creat Clear Calc Estimated GFR Random Glucose (60-115) mg/dL Calcium (8.4-10.2) mg/dL Troponin I High Sens (<3.5-35.0) ng/L Urine Color Yellow Urine Appearance Clear Urine pH 7.0 (5.0-9.0) Ur Specific [place] 1.025 (1.005-1.025) Urine Protein Negative (Neg-Trace) mg/dL Urine Glucose (UA) Negative (Negative) mg/dL Urine Ketones Negative (Negative) mg/dL Urine Blood Negative (Negative) Urine Nitrite Negative (Negative) Ur Leukocyte Esterase Negative (Negative) Urine Opiates Screen POSITIVE H (Not Detect) Urine Fentanyl Screen POSITIVE H (Not Detect) Ur Barbiturates Screen Not Detected (Not Detect) Ur Phencyclidine Scrn Not Detected (Not Detect) Ur Amphetamines Screen Not Detected (Not Detect) U Benzodiazepines Scrn Not Detected (Not Detect) Urine Cocaine Screen POSITIVE H (Not Detect) U Marijuana (THC) Screen Not Detected (Not Detect) Discharge Plan Discharge Clinical Impression: Polysubstance abuse, Suicidal ideation Patient Disposition: Home, Self-Care Instructions: Polysubstance Abuse (ED) Prescriptions: No Action No Known Home Meds Referrals: [facility] [Primary Care Provider] -
--- NOTE | 2023-05-07 19:50 | PC.NURSE ---
aox4. went over d/c instructions. piv removed. elmolgy aware pt agitated. security walked pt out w/pt. safely to lobby w/belongings. no distress. breathing normally. vss. given snack. conversational
== END 2023-05-07 20:20 | disposition home or self-care (01) ==
PROVIDERS: Emergency Provider Emergency Medicine
DX: R45.851 Suicidal ideations (principal); F19.10 Other psychoactive substance abuse, uncomplicated; F14.20 Cocaine dependence, uncomplicated; F11.20 Opioid dependence, uncomplicated; J45.909 Unspecified asthma, uncomplicated
CPT/HCPCS: 36415; 80048; 80307; 81003; 84484; 85025; 93005; 96374; 99284; 99285; J2405; S9485

== ENCOUNTER → 2023-05-06 02:56 | Outpatient (BNV) | payer MEDICAID, SELFPAY | PROVIDERS: Emergency Provider Emergency Medicine; Visit Provider Internal Medicine Cardiovascular Disease | DX: R94.31 Abnormal electrocardiogram [ECG] [EKG] (principal) | CPT/HCPCS: 93010 ==

== ENCOUNTER 2024-06-24 05:29 | Emergency (ER) | payer MEDICAID, SELFPAY ==
[2024-06-24 05:39] VITALS: BP 120/72; BP 136/74; PULSE 77; PULSE 78; RESP 16; TEMP 36.8; O2SAT 99; BMI 28.5
[2024-06-24 06:51] LABS: Amphetamine Screen Urine Not Detected (Not Detect); Barbiturates, Urine Not Detected (Not Detect); Benzodiazepines Screen Urine Not Detected (Not Detect); Buprenorphine Scr Not Detected (Not Detect); Cannabinoid Screen Urine POSITIVE (Not Detect); Cocaine Screen Urine POSITIVE (Not Detect); Fentanyl, urine POSITIVE (Not Detect); Methadone Screen, Urine Positive (Not Detect); Opiate Screen Urine POSITIVE (Not Detect); Oxycodone Screen Urine Not Detected (Not Detect); Phencyclidine Screen Urine Not Detected (Not Detect)
--- NOTE | 2024-06-24 08:35 | ED.PSYCH ---
HPI - Psych General Chief Complaint: Psychiatric Symptoms Stated Complaint: depression Time Seen by Provider: 06/24/24 07:19 Source: patient, EMS, RN notes reviewed and old records reviewed Mode of arrival: EMS Limitations: no limitations History of Present Illness ED Provider: Nenita Phelan PA-C HPI Narrative: 48-year-old male with a history of polysubstance use disorder, asthma, substance induced mood disorder who presents to the ER via EMS for evaluation depression and drug use. He was reportedly found outside of the police department earlier today reporting increased depression. He admits to ongoing heroin use which he injects. He last took his methadone 125 mg a couple of days ago. He states he wants to go to detox. He states he has had chronic suicidal ideation with no specific plan. His suicidal thoughts are stem from his substance use and homelessness. He admits to using just prior to coming in the hospital. complaint: feels depressed and substance abuse Onset (ago): unknown Duration: constant History of same: Yes Relieving factors: none Exacerbating factors: drug use Context: recent drug abuse Associated psychiatric symptoms: depression and suicidal ideation Associated symptoms: denies other symptoms If self harm: admits thoughts of self harm Related Data Home Medications ?Medication ?Instructions ?Recorded ?Confirmed No Known Home Meds 03/31/23 06/24/24 Allergies Allergy/AdvReac Type Severity Reaction Status Date / Time No Known Allergies Allergy Verified 06/24/24 05:43 [No Known Allergies*] Review of Systems Review of Systems: Yes all other systems are reviewed and are negative PMFSH Past Medical History Medical History Asthma Substance abuse Social History Social History Household Members: None Housing: Homeless Unable to assess alcohol history related to: Unknown Alcohol intake: never Patient Tobacco Use Status: Tobacco use Unknown Smoked in Last 30 Days: Yes Use of substances other than those prescribed or required for medical reasons: Yes Substance Use Type: Heroin Substance Use Frequency: Chronic Longstanding Last Used Substance: Just Prior to Admission Any prior treatment program specific to substance use: Yes Advance Directives: No Advance Directives Information Provided: No Do you have a plan to hurt others: No Plan Physical Exam Vital Signs: Vital Signs: Last Vital Signs Temp 97.9 F 06/24/24 15:00 Pulse 67 06/24/24 15:00 Resp 18 06/24/24 15:00 BP 125/66 06/24/24 15:00 Pulse Ox 98 06/24/24 15:00 O2 Del Method Room Air 06/24/24 05:39 BMI result Body Mass Index 28.5 Appearance: Alert. Oriented X3. Somnolent, poorly kempt, malodorous Head: normocephalic, atraumatic. Eyes: Pupils equal, round and reactive to light. ENT: Pharynx normal. No tonsillar swelling or exudate. Neck: Normal inspection. Neck supple. CVS: Normal heart rate and rhythm. Pulses normal. Respiratory: No respiratory distress. Breath sounds normal. Abdomen: Soft and nontender. +BS x4 Skin: Skin warm and dry. Normal skin color. Normal skin turgor. No rashes. Extremities: No lower extremity edema. No joint swelling. Track fleming in the right upper extremity without any evidence of surrounding erythema or cellulitis Neuro/psych: Somnolent, arouses to voice, nonfocal neurologically. CN II-XII intact. Delayed speech and cognition. Depressed mood Course Reevaluation(s) Reevaluation #1: Physician observation started at 13:24. Patient placed in physician observation because patient is awaiting Addiction medicine team evaluation for the possible need of inpatient detox. seen by CARE team and deemed not to require inpatient psychiatric care. At the time observation was started patient's vital signs were stable. Patient is alert and oriented. Neuro exam is non-focal. CV: RRR and lungs are clear. Will continue to monitor. Time: 13:24 Reevaluation #2: Patient's methadone dose confirmed. He last got 125 mg of methadone on June 15. Spoke with Addiction Medicine who is recommending 40 mg for now for some symptoms of withdrawal. Time: 14:22 Reevaluation #3: Patient has been accepted to [facility] for detox. He is stable for discharge. He does not require inpatient medical or psychiatric admission at this time. Physician observation discontinued at this time. He is stable for discharge detox. Transportation being arranged. Stable for discharge. Time: 15:33 Medications Administered Discontinued Medications Generic Name Dose Route Start Last Admin Trade Name Freq PRN Reason Stop Dose Admin Methadone HCl 40 mg 06/24/24 14:17 06/24/24 14:30 Methadone Hcl 20 Mg/2 Ml Oral.Conc PO 06/24/24 14:18 40 mg ONCE ONE Administration Medical Decision Making Medical Decision Making [facility] Narrative: 40-year-old male with a history of polysubstance abuse on methadone, last took a couple of days ago, with ongoing IVDA. He arrives to the ER intoxicated, somnolent. He is maintaining his airway and easily arouses to voice. Vital signs are stable. He initially refused lab workup was eventually agreeable to labs. He is interested in detox. His suicidal thoughts are chronic and he has no specific plan, his thoughts are very vague. He was seen by the care team and cleared. He would like to be seen by addiction Medicine. Differential Diagnosis Differential Diagnoses: The differential diagnosis associated with the presentation includes substance induced mood disorder, acute psychosis, schizophrenia, schizoaffective disorder, PTSD, bipolar disorder, major depression with psychotic features Admission/Observation Consideration of admission/observation: Escalation of care including admission/observation considered Consult Healthcare Provider Management of the patient was discussed with: Behavioral Health Provider Lab Data [facility] Lab Attestation statement: I reviewed the patient's lab results. Pancytopenia 06/24/24 12:14 06/24/24 12:14 Labs: Lab Results 06/24/24 06/24/24 Range/Units 06:26 12:14 WBC 2.3 L (4.8-10.8) X10*3/uL RBC 3.64 L (4.60-5.80) X10*6/uL Hgb 11.6 L (14.0-18.0) g/dl Hct 32.9 L (42.0-52.0) % MCV 90.4 (80.0-98.0) fL MCH 31.9 (27.0-33.0) pg MCHC 35.3 (31.0-36.0) g/dl RDW 12.1 (11.0-16.0) % Plt Count 162 D (160-400) X10*3/uL MPV 9.5 (9.4-12.4) fL Immature Gran % (Auto) 0.4 (0.0-0.4) % Neut % (Auto) 41.3 L (45-73) % Lymph % (Auto) 43.4 H (20-40) % [place] % (Auto) 9.6 (2-11) % Eos % (Auto) 4.4 H (0-4) % Baso % (Auto) 0.9 (0-2) % Lymph # (Auto) 1.0 L (1.2-4.9) X10*3/uL [place] # (Auto) 0.2 (0.1-1.2) X10*3/uL Eos # (Auto) 0.1 (0.0-0.4) X10*3/uL Baso # (Auto) 0.0 (0.0-0.2) X10*3/uL Abs Immat Gran (auto) 0.01 (0.00-0.03) X10*3/uL Absolute Neuts (auto) 0.9 L (2.0-8.3) x10*3/uL Absolute Nucleated RBC 0.000 (0.0-0.012) X10*3/uL Nucleated RBC % (auto) 0.0 (0.0-0.2) /100WBC Smear Tech's Comments VERIFIED Sodium 141 (135-145) mmol/L Potassium 4.0 (3.3-5.1) mmol/L Chloride 106 (96-108) mmol/L Carbon Dioxide 27 (22-29) mmol/L Anion Gap 12 (12-20) BUN 21 H (9-16) mg/dL Creatinine 1.04 (0.5-1.4) mg/dL Estim Creat Clear Calc 89.2 Estimated GFR > 60 Random Glucose 116 H (60-115) mg/dL Calcium 8.9 (8.4-10.2) mg/dL Total Bilirubin 0.2 (0.0-1.0) mg/dL AST 37 (5-37) U/L ALT 27 (0-40) U/L Alkaline Phosphatase 88 (39-117) U/L Total Protein 6.6 (6.5-8.0) g/dL Albumin 3.7 (3.5-5.0) g/dL Urine Opiates Screen POSITIVE H (Not Detect) Ur Buprenorphine Scrn Not Detected (Not Detect) ng/mL Ur Oxycodone Screen Not Detected (Not Detect) ng/mL Urine Methadone Screen Positive H (Not Detect) ng/mL Urine Fentanyl Screen POSITIVE H (Not Detect) Ur Barbiturates Screen Not Detected (Not Detect) Ur Phencyclidine Scrn Not Detected (Not Detect) Ur Amphetamines Screen Not Detected (Not Detect) U Benzodiazepines Scrn Not Detected (Not Detect) Urine Cocaine Screen POSITIVE H (Not Detect) U Marijuana (THC) Screen POSITIVE H (Not Detect) Ethyl Alcohol < 10 mg/dL Independent Historian Clinical information obtained from an independent historian. History obtained from or confirmed by: EMS External Record Review External record reviewed: Outpatient record, Prior outpatient labs and Prior outpatient radiology Prescription Management I considered prescription management with: Other (methadone, antipsychosis ) Chronic Conditions Patient?s care impacted by: Other (opiate use disorder, polysubstance abuse) Social Determinants Patient?s care significantly limited by Social Determinants of Health including: Inadequate housing, Problems related to primary support group and Other Social Determinant of Health Critical Care Time Critical Care Time Critical Care Time: No Discharge Plan Discharge Clinical Impression: Substance abuse, Depression Patient Disposition: Home, Self-Care Instructions: Depression (DC), Polysubstance Abuse (ED) Additional Instructions: Present directly to [facility] for detox. Take her methadone as prescribed. Do not use illicit drugs, they can kill you. If you develop new or worsening symptoms call 911 or come back to the ER for further evaluation. Prescriptions: No Action No Known Home Meds Interventions: [place]-Suicide Risk Severity Scale Last Done: 06/24/24 06:06 Print Language: Canadian
--- NOTE | 2024-06-24 10:58 | MHC.CARE ---
Pt has been referred to the Recovery Team. Pt has been referred to [facility]
--- NOTE | 2024-06-24 11:52 | PC.NURSE ---
pt has spent most of the morning laying in bed, states he is very tired, ate breakfast, states he is interested in detox and recovery team is looking for a bed
[2024-06-24 12:19] LABS: Basophils Percent Auto 0.9 % (0-2); Eosinophils Absolute Auto 0.1 X10*3/uL (0.0-0.4); Eosinophils Percent Auto 4.4 % (0-4); Hematocrit 32.9 % (42.0-52.0); Hemoglobin 11.6 g/dl (14.0-18.0); Imm Gran Abs Auto 0.01 X10*3/uL (0.00-0.03); Imm Gran Pct Auto 0.4 % (0.0-0.4); Lymphocytes Percent Auto 43.4 % (20-40); MANUAL DIFF FLAG SCAN; Mean Corpuscular HGB Conc 35.3 g/dl (31.0-36.0); Mean Corpuscular Hemoglobin 31.9 pg (27.0-33.0); Mean Corpuscular Volume 90.4 fL (80.0-98.0); Mean Platelet Volume 9.5 fL (9.4-12.4); Monocytes Absolute Auto 0.2 X10*3/uL (0.1-1.2); Monocytes Percent Auto 9.6 % (2-11); Neutrophils Absolute Auto 0.9 x10*3/uL (2.0-8.3); Neutrophils Percent Auto 41.3 % (45-73); Platelet Count 162 X10*3/uL (160-400); Red Blood Count 3.64 X10*6/uL (4.60-5.80); Red Cell Distribution Width 12.1 % (11.0-16.0); SCAN SMEAR FLAG 1
[2024-06-24 12:20] LABS: White Blood Count 2.3 X10*3/uL (4.8-10.8)
--- NOTE | 2024-06-24 12:22 | PC.NURSE ---
pt gets methadone at the [facility], message left at the office and also called and left a message at their off hours line
[2024-06-24 12:32] LABS: Ethanol < 10 mg/dL
[2024-06-24 12:33] LABS: Alanine Aminotransferase 27 U/L (0-40); Albumin Level 3.7 g/dL (3.5-5.0); Alkaline Phosphatase 88 U/L (39-117); Anion Gap 12 (12-20); Aspartate Amino Transferase 37 U/L (5-37); Bilirubin Total 0.2 mg/dL (0.0-1.0); Blood Urea Nitrogen 21 mg/dL (9-16); Calcium 8.9 mg/dL (8.4-10.2); Carbon Dioxide 27 mmol/L (22-29); Chloride 106 mmol/L (96-108); Creatinine Clr Calc Pharmacy 89.2; Estimated Glomerular Filt Rate > 60; Glucose Random 116 mg/dL (60-115); Sodium 141 mmol/L (135-145); Total Protein 6.6 g/dL (6.5-8.0)
[2024-06-24 12:38] LABS: SLIDE REVIEW VERIFIED
--- NOTE | 2024-06-24 13:03 | MHC.RECOVRN ---
Attempted to meet with pt on several occasions. Pt not willing to cooperate with tw in providing collateral information regarding pt's substance use. Pt did however express he is detox seeking so referral package was sent to [facility] for review and waiting to hear back.
--- NOTE | 2024-06-24 14:01 | MHC.RECOVRN ---
Brought pt the Recovery/Addiction cell phone to complete phone intake with [facility]. Pt unable to complete phone intake c/o pain and withdrawal symptoms. Will reach out in regards to advocating for better pain management.
--- NOTE | 2024-06-24 14:06 | MHC.RECOVRN ---
Called [facility] to obtain methadone dose information. Spoke with Cinthya who reported Taiwo's last dose was on 06/15/24 11:29 am 125mg of methadone.
[2024-06-24] MEDS: methADONE HCl 20 MG/2 ML ORAL.CONC 40 MG PO (14:30)
[2024-06-24 15:00] VITALS: BP 125/66; PULSE 67; RESP 18; TEMP 36.6; O2SAT 98
[2024-06-24 15:39] VITALS: BP 125/66; PULSE 67; RESP 18; TEMP 36.6; O2SAT 98
== END 2024-06-24 15:48 | disposition home or self-care (01) ==
PROVIDERS: Emergency Medicine; Emergency Provider Emergency Medicine Emergency Medical Services
DX: F19.10 Other psychoactive substance abuse, uncomplicated (principal); F32.A Depression, unspecified; R45.851 Suicidal ideations; J45.909 Unspecified asthma, uncomplicated; F11.20 Opioid dependence, uncomplicated; F17.200 Nicotine dependence, unspecified, uncomplicated
CPT/HCPCS: 36415; 80053; 80307; 85025; 99285; S9485

== ENCOUNTER 2024-06-29 18:54 | Inpatient (IN) | payer OTHER, SELFPAY ==
[2024-06-29 20:00] VITALS: BP 158/97; PULSE 88; RESP 16; TEMP 36.9; O2SAT 99
[2024-06-29 20:28] VITALS: BMI 25.9
[2024-06-29] MEDS: Buprenorphine/Naloxone 4/1 mg FILM 1 FILM SUBLINGUAL (23:03)
[2024-06-29] MEDS: LORazepam 1 MG TABLET 2 MG PO (23:03)
[2024-06-29 23:04] VITALS: BP 158/90
[2024-06-29] MEDS: traZODone HCL 50 MG TABLET PO (23:04)
[2024-06-29] MEDS: Dicyclomine HCl 10 MG CAPSULE PO (23:04)
[2024-06-29] MEDS: cloNIDine HCL 0.1 MG TABLET PO (23:04)
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
[2024-06-30 08:00] VITALS: RESP 18
[2024-06-30 10:06] VITALS: BP 127/88; PULSE 76; RESP 18; TEMP 37.4; O2SAT 99
[2024-06-30 10:07] VITALS: PULSE 76
[2024-06-30] MEDS: Buprenorphine/Naloxone 4/1 mg FILM 1 FILM SUBLINGUAL (10:10)
[2024-06-30] MEDS: cloNIDine HCL 0.1 MG TABLET PO ×2 (10:10→14:13)
--- NOTE | 2024-06-30 11:10 | HO.PM.IMCN ---
History of Present Illness Data of Consult Service Date: 06/30/24 Primary Care Provider: Unknown Physician HPI Reason for consult: Admission H&P Pt is a 48-year-old male with a PMH significant for?polysubstance use disorder on methadone, IVDU, asthma, substance induced mood disorder, and depression who is admitted to M3 psychiatry unit for increasing depression with vague SI. Pt initially presented to [facility] ED with complaints of chest pain after injecting cocaine. Cardiac workup at [facility] negative, including flat troponins, reassuring labs, and drug screen positive for opiates, methadone, fentanyl, cocaine, and marijuana. Medical consult for admission H&P. ?Patient approached in his room where he is laying in bed with the covers pulled over his head. Patient is not amenable to interview or examination, saying ?I have already been medically cleared . Patient appears irritated and wishes to be left alone so that he can continue sleeping. Patient denies any acute medical complaint. States he has ?no more chest pain?. Review of Systems Review of Systems: Patient denies any acute medical complaint at this time [facility] Medical History Substance abuse Asthma Social History Household Members: Unknown / Unable to assess Household Members Other:: MED REC NOTES STABLE HOUSING/SUPPORTIVE FAM Housing: Unknown / Unable to assess Do you presently have visiting nurse or other home services: No Unable to assess alcohol history related to: Unknown Alcohol intake: never Patient Tobacco Use Status: Current everyday Tobacco user Tobacco use type: Cigarette Smoked in Last 30 Days: Yes e-Cigarette/Vaping Use: Never Used Patient Interested in Nicotine Replacement: Yes Patient Given Instructions on How to Stop Smoking: No (DECLINED TO ANSWER) Second Hand Smoke Exposure: No Use of substances other than those prescribed or required for medical reasons: Yes Substance Use Type: Crack/Cocaine, Heroin, Marijuana and Opiates Substance Use Frequency: Chronic Longstanding Last Used Substance: Just Prior to Admission Currently Displaying Signs/Symptoms of Drug Intoxication Withdrawal: Yes Any prior treatment program specific to substance use: Yes (DETOX SEVERAL TIMES. CLEAN [id number]) Have you been hit, kicked, punched, or otherwise hurt by someone within the past year? If so, by whom?: No (DECLINED TO ANSWER) Do you feel safe in your current relationship?: Yes Is there a partner from a previous relationship who is making you feel unsafe now?: No Are you made to feel afraid or neglected: No ( IS SUPPORTIVE) Advance Directives: No Advance Directives Information Provided: No Do you have thoughts of harming others: None Do you have a plan to hurt others: No Plan Recently lost weight without trying: No How much weight loss: Not applicable Eating poorly because of decreased appetite: No Nutrition screen score: 0 Nutrition Risks: No Nutritional Risk Poor oral hygiene: No (DECLINED TO ANSWER) Meds Allergies Allergy/AdvReac Type Severity Reaction Status Date / Time No Known Allergies Allergy Verified 06/24/24 05:43 [No Known Allergies*] Active Medications: Current Medications Acetaminophen (Acetaminophen 325 Mg Tablet) 975 mg PO Q6H PRN PRN Reason: pain (pain scale 1-10) Al Hydroxide/Mg Hydroxide (Magnesium Hydrox/Alum Hydrox 30 Ml Oral.Susp) 30 ml PO Q6H PRN PRN Reason: Heartburn/Nausea Buprenorphine/Naloxone (Buprenorphine/Naloxone 4/1 Mg Film) 1 film SUBLINGUAL Q6H PRN PRN Reason: COWS > 8 Last Admin: 06/30/24 10:10 Dose: 1 film Clonidine HCl (Clonidine Hcl 0.1 Mg Tablet) 0.1 mg PO Q4H PRN; Protocol PRN Reason: signs of opioid withdrawal Last Admin: 06/30/24 10:10 Dose: 0.1 mg Dicyclomine HCl (Dicyclomine Hcl 10 Mg Capsule) 10 mg PO QIDACHS PRN PRN Reason: abd spasm Last Admin: 06/29/24 23:04 Dose: 10 mg Hydroxyzine HCl (Hydroxyzine Hcl 25 Mg Tablet) 25 mg PO Q6H PRN PRN Reason: Anxiety Loperamide HCl (Loperamide Hcl 2 Mg Capsule) 2 mg PO Q6H PRN PRN Reason: diarrhea Lorazepam (Lorazepam 1 Mg Tablet) 1 mg PO Q2H PRN PRN Reason: CIWA 8-11 Lorazepam (Lorazepam 1 Mg Tablet) 2 mg PO Q2H PRN PRN Reason: CIWA 12-15 Last Admin: 06/29/24 23:03 Dose: 2 mg Lorazepam (Lorazepam 1 Mg Tablet) 3 mg PO Q2H PRN PRN Reason: CIWA > 15; and call Magnesium Hydroxide (Milk Of Magnesia 30 Ml Oral.Susp) 30 ml PO DAILY PRN PRN Reason: Constipation Nicotine Polacrilex (Nicotine Polacrilex 2 Mg Gum) 4 mg BUCCAL Q2H PRN PRN Reason: Nicotine Cravings Trazodone HCl (Trazodone Hcl 50 Mg Tablet) 50 mg PO BEDTIME MRX1 PRN PRN Reason: Insomnia Last Admin: 06/29/24 23:04 Dose: 50 mg Home Medications ?Medication ?Instructions ?Recorded ?Confirmed ?Last Taken ?Type No Known Home Meds 03/31/23 06/29/24 Unknown History Physical Exam Vital Signs and Narrative: Vital Signs: Last Vital Signs Temp 99.3 F 06/30/24 10:06 Pulse 76 06/30/24 10:06 Resp 18 06/30/24 10:06 BP 127/88 06/30/24 10:06 Pulse Ox 99 06/30/24 10:06 O2 Del Method Room Air 06/30/24 10:06 BMI result Body Mass Index 25.9 Patient seen resting comfortably in his bed Capable of speaking in full sentences, no respiratory distress Seen moving extremities Patient refuses formal physical examination Assessment and Plan (1) Medical clearance for psychiatric admission: Status: Acute Plan Pt is a 48-year-old male with a PMH significant for?polysubstance use disorder on methadone, IVDU, asthma, substance induced mood disorder, and depression who is admitted to M3 psychiatry unit for increasing depression with vague SI. Pt initially presented to [facility] ED with complaints of chest pain after injecting cocaine. Cardiac workup at [facility] negative, including flat troponins, reassuring labs, and drug screen positive for opiates, methadone, fentanyl, cocaine, and marijuana. Medical consult for admission H&P. Mood disorder Plan as per psychiatry Polysubstance use disorder including IVDU Plan as per Psychiatry/Addiction Medicine Asthma No SOB, not on home inhaler Albuterol inhaler is pt develops SOB/wheezing Thank you for allowing us to participate in the care of this patient. Signing off at this time. Please re-consult if any acute complaints or issues arise.
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
[2024-06-30 14:13] VITALS: BP 118/71
[2024-06-30] MEDS: Acetaminophen 325 MG TABLET 975 MG PO (14:15)
[2024-06-30] MEDS: hydrOXYzine HCL 25 MG TABLET PO (14:16)
[2024-06-30] MEDS: LORazepam 1 MG TABLET 2 MG PO (14:16)
[2024-06-30] MEDS: Nicotine 21 MG PATCH.TD24 TRANSDERMA (15:29)
[2024-06-30] MEDS: Divalproex Sodium 500 MG TABLET.DR PO (15:29)
[2024-06-30] MEDS: FLUoxetine HCl 20 MG CAPSULE PO (15:29)
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
== END 2024-06-30 16:59 | disposition home or self-care (01) | DRG 773 ==
PROVIDERS: Admitting Provider Psychiatry & Neurology Psychiatry; Visit Provider Psychiatry & Neurology Psychiatry
DX: F19.24 Other psychoactive substance dependence with psychoactive substance-induced mood disorder (principal); F11.20 Opioid dependence, uncomplicated; R45.851 Suicidal ideations; R45.850 Homicidal ideations; Z91.148 Patient's other noncompliance with medication regimen for other reason; F10.90 Alcohol use, unspecified, uncomplicated; F17.210 Nicotine dependence, cigarettes, uncomplicated; J45.909 Unspecified asthma, uncomplicated; Z71.6 Tobacco abuse counseling; Z91.52 Personal history of nonsuicidal self-harm; F14.20 Cocaine dependence, uncomplicated; F12.90 Cannabis use, unspecified, uncomplicated; Z59.02 Unsheltered homelessness; Z62.810 Personal history of physical and sexual abuse in childhood

== ENCOUNTER → 2024-06-29 18:54 | Outpatient (BNV) | payer MEDICAID, SELFPAY | PROVIDERS: Admitting Provider Psychiatry & Neurology Psychiatry; Visit Provider Student in an Organized Health Care Education/Training Program | DX: Z00.8 Encounter for other general examination (principal) | CPT/HCPCS: 99222 ==

== ENCOUNTER → 2024-06-29 18:54 | Outpatient (BNV) | payer OTHER, SELFPAY | PROVIDERS: Admitting Provider Psychiatry & Neurology Psychiatry; Visit Provider Psychiatry & Neurology Psychiatry | DX: F19.94 Other psychoactive substance use, unspecified with psychoactive substance-induced mood disorder (principal); F14.20 Cocaine dependence, uncomplicated; F11.20 Opioid dependence, uncomplicated; F10.90 Alcohol use, unspecified, uncomplicated | CPT/HCPCS: 99233; 99499 ==

== ENCOUNTER 2024-12-11 13:41 | Emergency (ER) | payer MEDICAID, SELFPAY ==
--- NOTE | ~2024-12-11 | CT_ITS ---
CLINICAL HISTORY: Rectal pain rule out perirectal rectal abscess CT abdomen and pelvis with contrast Comparison: None Findings: Lung bases clear. No acute bony abnormalities. Liver and spleen within normal limits. Pancreas and adrenal glands unremarkable. Gallbladder contracted and not assessed. No significant focal renal abnormalities. No renal stones or hydronephrosis. Abdominal aorta is normal in caliber. No free fluid or adenopathy in the pelvis. No diverticulitis. Appendix unremarkable. Impression: No acute process This document has been electronically signed by: Moo Lua MD on 12/11/2024 19:56:15
[2024-12-11 13:58] VITALS: BP 170/104; PULSE 74; RESP 18; TEMP 36.7; O2SAT 99; BMI 27.9
--- NOTE | 2024-12-11 14:08 | ED_ITS ---
HPI - General Adult General Chief complaint: General Medical Stated complaint: anus pain Time Seen by Provider: 12/11/24 17:27 History of Present Illness HPI narrative: Patient complains of rectal pain that is continuous over the last week, he says there was some bloody rectal discharge, he denies any swelling, he has had bowel movements but they are very painful, he denies any fever no abdominal pain, it is all rectal pain continuous The bowel movements themselves are not melena, no black tarry stool no blood in stool Related Data Previous Rx's ?Medication ?Instructions ?Recorded naloxone 4 mg/actuation nasal 4 mg intranasal Q2M PRN opioid 06/30/24 spray (Narcan) overdose 1 day #2 ea Allergies Allergy/AdvReac Type Severity Reaction Status Date / Time No Known Allergies Allergy Verified 12/11/24 14:03 [No Known Allergies*] [facility] Past Medical History Source: nursing notes reviewed Medical History Substance abuse Asthma Social History Social History Household Members: Unknown / Unable to assess Household Members Other:: MED REC NOTES STABLE HOUSING/SUPPORTIVE FAM Housing: Unknown / Unable to assess Do you presently have visiting nurse or other home services: No Unable to assess alcohol history related to: Unknown Alcohol intake: never Patient Tobacco Use Status: Current everyday Tobacco user Tobacco use type: Cigarette Smoked in Last 30 Days: Yes e-Cigarette/Vaping Use: Never Used Second Hand Smoke Exposure: No Use of substances other than those prescribed or required for medical reasons: No Substance Use Type: Crack/Cocaine, Heroin, Marijuana and Opiates Advance Directives: No Advance Directives Information Provided: No Do you have a plan to hurt others: No Plan service: No Sexual orientation: Straight/Heterosexual Physical Exam ED Vital Signs: Vital Signs - 24 hr 12/11/24 13:58 12/11/24 18:21 Temperature 98.1 F 98.5 F Pulse Rate 74 63 Respiratory Rate 18 18 Blood Pressure 170/104 H 159/98 H Pulse Oximetry 99 98 Oxygen Delivery Method Room Air Room Air BMI result Body Mass Index 27.9 General appearance no acute distress Eyes anicteric no pallor The pharynx mucous membranes are moist no redness or swelling Neck is supple Chest clear to auscultation Abdomen soft and nontender Rectal exam was very painful, I did not see any external abnormality I did not feel a hemorrhoid, there was no blood on the glove, just light brown normal appearing stool, it was very tender but I did not palpate a fluctuant mass There was no surrounding erythema or swelling on external exam Extremities full range motion x4 Skin no rash Course Course Course Narrative: This is an RME performed by Chris Womack CNP: Additional HPI, ROS, PE not included below will be deferred to primary provider. Patient is a 49-year-old male presents emergency department for evaluation of 1 week with anal pain. Denies any bleeding, hemorrhoids, hematochezia, melena. Denies penetrating anal history. Endorses having normal bowel movements but painful to do so. I discussed case with Dr. almeida as I could not find the cause of the pain there was no obvious hemorrhoid or anal fissure, as exam was so painful I could not rule out the possibility of a deeper abscess, doctor's I ED recommended IV contrast scan which was ordered Case signed out pending CT scan to physician speech pathologist assistant Lauren Tao for re- evaluation and disposition Reevaluation(s) Reevaluation #1: I Amanda Tao PA-C have accepted care of the patient at signed out pending imaging and final disposition CT abdomen and pelvis:Findings: Lung bases clear. No acute bony abnormalities. Liver and spleen within normal limits. Pancreas and adrenal glands unremarkable. Gallbladder contracted and not assessed. No significant focal renal abnormalities. No renal stones or hydronephrosis. Abdominal aorta is normal in caliber. No free fluid or adenopathy in the pelvis. No diverticulitis. Appendix unremarkable. Impression: No acute process This document has been electronically signed by: Moo Lua MD on 12/11/2024 19:56:15 Medications Administered Discontinued Medications Generic Name Dose Route Start Last Admin Trade Name Freq PRN Reason Stop Dose Admin Iohexol 100 ml 12/11/24 19:11 12/11/24 19:11 Iohexol 350 Mg/Ml 100 Ml Infus..Btl IV 12/11/24 19:12 85 ml ONCE ONE Administration Medical Decision Making Lab Data 12/11/24 17:39 12/11/24 17:39 Labs: Lab Results 12/11/24 Range/Units 17:39 WBC 4.9 (4.8-10.8) X10*3/uL RBC 4.51 L D (4.60-5.80) X10*6/uL Hgb 14.1 D (14.0-18.0) g/dl Hct 39.7 L D (42.0-52.0) % MCV 88.0 (80.0-98.0) fL MCH 31.3 (27.0-33.0) pg MCHC 35.5 (31.0-36.0) g/dl RDW 12.9 (11.0-16.0) % Plt Count 227 D (160-400) X10*3/uL MPV 9.6 (9.4-12.4) fL Immature Gran % (Auto) 0.2 (0.0-0.4) % Neut % (Auto) 53.1 (45-73) % Lymph % (Auto) 39.0 (20-40) % Hamblen % (Auto) 6.3 (2-11) % Eos % (Auto) 0.8 (0-4) % Baso % (Auto) 0.6 (0-2) % Lymph # (Auto) 1.9 (1.2-4.9) X10*3/uL Hamblen # (Auto) 0.3 (0.1-1.2) X10*3/uL Eos # (Auto) 0.0 (0.0-0.4) X10*3/uL Baso # (Auto) 0.0 (0.0-0.2) X10*3/uL Abs Immat Gran (auto) 0.01 (0.00-0.03) X10*3/uL Absolute Neuts (auto) 2.6 (2.0-8.3) x10*3/uL Absolute Nucleated RBC 0.000 (0.0-0.012) X10*3/uL Nucleated RBC % (auto) 0.0 (0.0-0.2) /100WBC Sodium 140 (135-145) mmol/L Potassium 3.9 (3.3-5.1) mmol/L Chloride 109 H (96-108) mmol/L Carbon Dioxide 23 (22-29) mmol/L Anion Gap 12 (12-20) BUN 12 (9-16) mg/dL Creatinine 0.93 (0.5-1.4) mg/dL Estim Creat Clear Calc 97.7 Estimated GFR > 60 Random Glucose 85 (60-115) mg/dL Calcium 9.4 (8.4-10.2) mg/dL Total Bilirubin 0.4 (0.0-1.0) mg/dL AST 22 (5-37) U/L ALT 19 (0-40) U/L Alkaline Phosphatase 64 (39-117) U/L Total Protein 7.7 (6.5-8.0) g/dL Albumin 4.2 (3.5-5.0) g/dL Discharge Plan Discharge Clinical Impression: Pain, rectal, Constipation Patient Disposition: Home, Self-Care Instructions: Rectal Pain (ED), Constipation (ED) Additional Instructions: There was no infection noted in your rectum or in the abdomen. All of your labs were normal. You are constipated to some degree, see home care instructions. In order to make your bowel movements less painful, you need to start using [id number]-aeumhyk Colace, this is a stool softener, twice a day. In addition, you can use cnrl-tbr-pmzhnan MiraLax, 1 to 2 times a day, to help your bowel movements be more productive. Follow up with your primary care provider as needed. Prescriptions: No Action naloxone [Narcan] 4 mg/actuation spray,non-aerosol 4 mg intranasal Q2M PRN (Reason: opioid overdose) 1 Days Qty: 2 0RF Rx Instructions: spray 1 dose into ONE nostril; alternate nostrils w each dose until help arrives Print Language: Greenlandic
[2024-12-11 17:44] LABS: MANUAL DIFF FLAG NO
[2024-12-11 18:09] LABS: Basophils Percent Auto 0.6 % (0-2); Eosinophils Percent Auto 0.8 % (0-4); Hematocrit 39.7 % (42.0-52.0); Hemoglobin 14.1 g/dl (14.0-18.0); Imm Gran Abs Auto 0.01 X10*3/uL (0.00-0.03); Imm Gran Pct Auto 0.2 % (0.0-0.4); Lymphocytes Absolute Auto 1.9 X10*3/uL (1.2-4.9); Mean Corpuscular HGB Conc 35.5 g/dl (31.0-36.0); Mean Corpuscular Hemoglobin 31.3 pg (27.0-33.0); Mean Platelet Volume 9.6 fL (9.4-12.4); Monocytes Absolute Auto 0.3 X10*3/uL (0.1-1.2); Monocytes Percent Auto 6.3 % (2-11); Neutrophils Absolute Auto 2.6 x10*3/uL (2.0-8.3); Neutrophils Percent Auto 53.1 % (45-73); Platelet Count 227 X10*3/uL (160-400); Red Blood Count 4.51 X10*6/uL (4.60-5.80); Red Cell Distribution Width 12.9 % (11.0-16.0); White Blood Count 4.9 X10*3/uL (4.8-10.8)
[2024-12-11 18:18] LABS: Alanine Aminotransferase 19 U/L (0-40); Albumin Level 4.2 g/dL (3.5-5.0); Alkaline Phosphatase 64 U/L (39-117); Anion Gap 12 (12-20); Aspartate Amino Transferase 22 U/L (5-37); Bilirubin Total 0.4 mg/dL (0.0-1.0); Blood Urea Nitrogen 12 mg/dL (9-16); Calcium 9.4 mg/dL (8.4-10.2); Carbon Dioxide 23 mmol/L (22-29); Chloride 109 mmol/L (96-108); Creatinine Clr Calc Pharmacy 97.7; Estimated Glomerular Filt Rate > 60; Glucose Random 85 mg/dL (60-115); Potassium 3.9 mmol/L (3.3-5.1); Sodium 140 mmol/L (135-145); Total Protein 7.7 g/dL (6.5-8.0)
[2024-12-11 18:21] VITALS: BP 159/98; PULSE 63; RESP 18; TEMP 36.9; O2SAT 98
[2024-12-11] MEDS: iohexoL 350 MG/ML 100 ML INFUS..BTL IV (19:11)
[2024-12-11 20:28] VITALS: BP 159/98; PULSE 63; RESP 18; TEMP 36.9; O2SAT 98
== END 2024-12-11 20:30 | disposition home or self-care (01) ==
PROVIDERS: Nurse Practitioner Family; Emergency Provider Emergency Medicine Emergency Medical Services
DX: K59.00 Constipation, unspecified (principal); K92.1 Melena; K62.89 Other specified diseases of anus and rectum; R10.2 Pelvic and perineal pain; F17.210 Nicotine dependence, cigarettes, uncomplicated; Z79.899 Other long term (current) drug therapy
CPT/HCPCS: 36415; 74177; 80053; 85025; 99284; Q9967

== ENCOUNTER → 2024-12-11 18:01 | Outpatient (BNV) | payer MEDICAID, SELFPAY | PROVIDERS: Emergency Provider Emergency Medicine Emergency Medical Services; Visit Provider Radiology Diagnostic Radiology | DX: K62.89 Other specified diseases of anus and rectum (principal) | CPT/HCPCS: 74177 ==

== ENCOUNTER 2025-03-31 10:16 | Outpatient (REF) | payer MEDICAID, SELFPAY ==
--- NOTE | ~2025-03-31 | XR_ITS ---
EXAMINATION: XR CHEST CLINICAL INFORMATION: ASTHMA, pleuritic chest pain COMPARISON: None available. TECHNIQUE: 2 views of the chest were obtained. FINDINGS: No significant abnormality is noted involving the heart, lungs, mediastinum, bony thorax or soft tissues. XR/XR chest 2V IMPRESSION: No acute disease Electronically signed by: Carter Porras MD 03/31/2025 10:44 AM EDT
[2025-03-31 11:06] LABS: MANUAL DIFF FLAG NO
--- OUTSIDE RECORDS SUMMARY | 2025-03-31 11:12 | XMS_ITS | Encounter Summary ---
Author Organization [employer] Address [address] [place] [address] Care Team Providers Care Dry Ice Maker Name Role Phone Deann Angelo MD Primary Care Provider + Encounter Details Date Type Department Care Team (Latest Contact Info) Description 03/31/2025 Travel Social History Tobacco Use Types Packs/Day Years Used Date Smoking Tobacco: Every Day Cigarettes Smokeless Tobacco: Never Alcohol Answer Date Recorded Frequency of Alcohol Consumption Not on file 08/26/2024 Average Number of Drinks Not on file 024 Frequency of Binge Drinking Not on file 05/2024 Score 0 08/26/2024 Depression Answer Date Recorded Patient Health Questionnaire-9 Score 22 01/19/2025 Patient Health Questionnaire-9 Score 22 01/19/2025 Last PHQ-9: Questionnaire Data Not on file 0 01/19/2025 Housing Stability Answer Date Recorded What is your housing situation today? I have daysi grover 08/26/[address] you li ve. Do you have problems with any of the following? None of the above 08/26/2024 Food Insecurity Answer Date Recorded Within the past 12 months, y ou worried that your food would run out before you got money to buy more: Never True 08/26/2024 Within the past 12 months,th e food you bought just didn't last and you didn't have enough money to get more: Never True 05/2024 Transportation Answer Date Recorded In the past 12 months, has l ack of transportation kept you from medical appts, meetings, work or from getting things needed for daily living? No 08/26/2024 Utilities Answer Date Recorded In the past 12 months, has t he electric, gas, oil or water company threatened to shut off services in your home? No 08/26/2024 Depression Answer Date Recorded Patient Health Questionnaire-2 Score 5 01/19/2025 Internet Access Answer Date Recorded Internet Access Q1 Yes 08/26/2024 Internet Access Q2 Not on file 08/26/2024 Sex and Gender Information Value Date Recorded Sex Assigned at Male 08/18/2022 10:28 AM EDT Legal Sex Male 10:28 AM EDT Gender Identity Male 08/09/2024 8:46 AM EDT Sexual Orientation Don't know 08/09/2024 8: 46 AM EDT documented as of this encounter Plan of Treatment Upcoming Encounters Date Type Department Care Team (Late st Contact Info) Description 06/09/2025 11:30 AM EDT Office Visit [facility] MED[facility]INE [address] [place] [address] Deann Angelo MD [address] [place] [phone] documented as of this encounter Goals Goal Patient Goal Type Associated Problems Recent Progress Patient-Stated? Author Increase coping skills to promote long-term recovery and improve ability to perform daily activities General No Laurita Abdi, RN documented as of this encounter Visit Diagnoses Not on filedocumented in this encounter Additional Health Concerns Assessment Noted Time PHQ-9 Depression Total Score: 22 025 2:19 PM EDT documented as of this encounter Care Teams Dry Ice Maker Relationship Specialty Start Date End Date Deann Angelo MD [address] [place] [phone] PCP - General Internal Medicine 02/02/25 documented as of this encounter
[2025-03-31 11:14] LABS: Basophils Percent Auto 0.6 % (0-2); Eosinophils Absolute Auto 0.1 X10*3/uL (0.0-0.4); Eosinophils Percent Auto 1.3 % (0-4); Hematocrit 36.2 % (42.0-52.0); Hemoglobin 12.3 g/dl (14.0-18.0); Imm Gran Abs Auto 0.01 X10*3/uL (0.00-0.03); Imm Gran Pct Auto 0.2 % (0.0-0.4); Lymphocytes Absolute Auto 2.7 X10*3/uL (1.2-4.9); Lymphocytes Percent Auto 51.5 % (20-40); Mean Corpuscular Hemoglobin 30.7 pg (27.0-33.0); Mean Corpuscular Volume 90.3 fL (80.0-98.0); Mean Platelet Volume 10.1 fL (9.4-12.4); Monocytes Absolute Auto 0.4 X10*3/uL (0.1-1.2); Neutrophils Absolute Auto 2.1 x10*3/uL (2.0-8.3); Neutrophils Percent Auto 39.4 % (45-73); Platelet Count 218 X10*3/uL (160-400); Red Blood Count 4.01 X10*6/uL (4.60-5.80); Red Cell Distribution Width 12.5 % (11.0-16.0); White Blood Count 5.3 X10*3/uL (4.8-10.8)
[2025-03-31 11:43] LABS: Alanine Aminotransferase 38 U/L (0-40); Albumin Level 4.6 g/dL (3.5-5.0); Alkaline Phosphatase 69 U/L (39-117); Anion Gap 12 (12-20); Aspartate Amino Transferase 31 U/L (5-37); Bilirubin Direct < 0.2 mg/dL (0.0-0.5); Bilirubin Total 0.2 mg/dL (0.0-1.0); Blood Urea Nitrogen 25 mg/dL (9-16); Calcium 9.6 mg/dL (8.4-10.2); Carbon Dioxide 27 mmol/L (22-29); Chloride 105 mmol/L (96-108); Cholesterol 160 mg/dL (<200); Estimated Glomerular Filt Rate > 60; Glucose Random 99 mg/dL (60-115); HDL Cholesterol 41 mg/dL (>40); LDL Cholesterol Calculated 89 mg/dL (<100); Potassium 4.5 mmol/L (3.3-5.1); Sodium 139 mmol/L (135-145); Total Protein 7.4 g/dL (6.5-8.0); Triglycerides 151 mg/dL (<150)
[2025-03-31 14:07] LABS: Reflex LDLD? No
[2025-04-03 04:06] LABS: Syphilis Screen Nonreactive (Nonreactive)
[2025-04-03 04:29] LABS: HBS Num1 > 1000.00 mIU/mL (0-7.99); HBc Num1 0.09 S/CO (0.00-0.79); HIV AB/AG Nonreactive (Nonreactive); HIV Num 1 0.07 S/CO (0.00-0.99); Hepatitis A Antibody IgM 0.19 Index (0-0.79); Hepatitis B Core Antibody Nonreactive (Nonreactive); Hepatitis B Surface Antigen Negative (Negative); ~HepC Num1 16.66 S/CO (0.00-0.79); ~Hepatitis A Antibody IgM Nonreactive (Nonreactive); ~Hepatitis B Surface Antibody REACTIVE (Nonreactive); ~Hepatitis C Antibody Reactive (Nonreactive)
== END 2025-03-31 10:17 | disposition home or self-care (01) ==
LOC: HO.HHCL 10:16
PROVIDERS: Visit Provider Internal Medicine
DX: J45.40 Moderate persistent asthma, uncomplicated (principal); F11.90 Opioid use, unspecified, uncomplicated; F31.5 Bipolar disorder, current episode depressed, severe, with psychotic features
CPT/HCPCS: 36415; 71046; 80053; 80061; 82248; 84443; 85025; 86704; 86706; 86709; 86780; 86803; 87340; 87389

== ENCOUNTER → 2025-03-31 10:28 | Outpatient (BNV) | payer MEDICAID, SELFPAY | PROVIDERS: Visit Provider Radiology Diagnostic Radiology | DX: J45.909 Unspecified asthma, uncomplicated (principal); R07.89 Other chest pain | CPT/HCPCS: 71046 ==

== ENCOUNTER 2025-10-16 19:12 | Emergency (ER) | payer MEDICAID, SELFPAY ==
[2025-10-16 19:19] VITALS: BP 135/84; PULSE 85; O2SAT 100; BMI 24.3
--- NOTE | 2025-10-16 19:26 | ECG_ITS ---
Test Reason : SYNCOPE Blood Pressure : */* mmHG Vent. Rate : 86 BPM Atrial Rate : 86 BPM P-R Int : 148 ms QRS Dur : 74 ms QT Int : 386 ms P-R-T Axes : 70 28 31 degrees QTcB Int : 461 ms Normal sinus rhythm Normal ECG When compared with ECG of 06-May-2023 03:08, Nonspecific T wave abnormality has replaced inverted T waves in Inferior leads Referred By: Generic ED Physician Electronically Signed By: BELIA HERCULES
[2025-10-16 19:32] VITALS: BP 127/70; PULSE 92; RESP 20; TEMP 36.6; O2SAT 99
[2025-10-16 20:19] LABS: MANUAL DIFF FLAG NO
[2025-10-16 20:20] LABS: Hematocrit 32.6 % (42.0-52.0); Hemoglobin 11.1 g/dl (14.0-18.0); Imm Gran Abs Auto 0.01 X10*3/uL (0.00-0.03); Imm Gran Pct Auto 0.2 % (0.0-0.4); Lymphocytes Absolute Auto 2.4 X10*3/uL (1.2-4.9); Mean Corpuscular HGB Conc 34.0 g/dl (31.0-36.0); Mean Corpuscular Hemoglobin 30.7 pg (27.0-33.0); Mean Corpuscular Volume 90.1 fL (80.0-98.0); NRBC Abs Auto 0.000 X10*3/uL (0.0-0.012); NRBC Pct Auto 0.0 /100WBC (0.0-0.2); Platelet Count 209 X10*3/uL (160-400); Red Blood Count 3.62 X10*6/uL (4.60-5.80); White Blood Count 4.8 X10*3/uL (4.8-10.8)
[2025-10-16 20:33] LABS: COVID-19 Test Negative (Negative)
[2025-10-16 20:34] LABS: Alanine Aminotransferase 51 U/L (0-40); Albumin Level 3.7 g/dL (3.5-5.0); Alkaline Phosphatase 43 U/L (39-117); Anion Gap 9 (12-20); Aspartate Amino Transferase 34 U/L (5-37); Blood Urea Nitrogen 19 mg/dL (9-16); Calcium 8.9 mg/dL (8.4-10.2); Carbon Dioxide 30 mmol/L (22-29); Chloride 107 mmol/L (96-108); Creatinine Clr Calc Pharmacy 81.0; Estimated Glomerular Filt Rate > 60; Magnesium 1.9 mg/dL (1.6-2.6); Potassium 4.2 mmol/L (3.3-5.1); Sodium 142 mmol/L (135-145); Total Protein 6.1 g/dL (6.5-8.0)
[2025-10-16 20:37] LABS: IDNOW Serial# 58CA691E; Influenza B2 Negative (Negative)
[2025-10-16 20:42] LABS: Troponin-I High Sensitivity 3.4 ng/L (<3.5-35.0)
--- OUTSIDE RECORDS SUMMARY | 2025-10-16 20:42 | XMS_ITS | Clinical Summary ---
Author Organization [employer] Address [address] [facility] [address] [place] [address] Care Team Providers Care Quahogger Name Role Phone Deann Angelo MD Primary Care Provider + Shreya Wyman [facility] Unavailable [phone] Allergies Active Allergy Reactions Criticality Noted Date Comments Acetaminophen Rash Low 08/26/2024 Medications * This document contains information received from the source organization and may not represent a complete record from that organization. naloxone (Narcan) 4 mg/0.1 mL nasal spray Administer 1 spray (4 mg) into affected nostril(s) if needed for opioid reversal. May repeat every 2-3 minutes if needed, alternating nostrils, until medical assistance becomes available. 2 each 1 12/28/19 25 026 Active nicotine (Nicoderm, Step 1) 21 MG/24HR patch Place 1 patch on the skin 1 (one) time each day at the same time. 30 patch 03/31/20 25 Active fluticasone furoate (Arnuity Ellipta) 100 MCG/ACT inhaler Inhale 1 puff Once per day. Rinse mouth with water after use to reduce aftertaste and incidence of candidiasis. Do not swallow. 1 each 3 03/31/20 25 026 Active buPROPion SR (Wellbutrin SR) 200 MG 12 hr tabletIndications: Bipolar disorder, current episode depressed, severe, with psychotic features (CMS/HCC) (HCC) Take 1 tablet (200 mg) by mouth 2 times daily. For mood 60 tablet 1 08/09/20 25 Active divalproex (Depakote) 500 MG EC tabletIndications: Bipolar disorder, current episode depressed, severe, with psychotic features (CMS/HCC) (HCC) Take 1 tablet (500 mg) by mouth 2 times daily. 60 tablet 1 08/09/20 25 Active FLUoxetine (PROzac) 10 MG capsuleIndications :Bipolar disorder, current episode depressed, severe, with psychotic features (CMS/HCC) (HCC) Take 1 capsule (10 mg) by mouth Once per day. For mood 30 capsule 1 08/09/20 25 Active haloperidol (Haldol) 10 MG tabletIndications: Bipolar disorder, current episode depressed, severe, with psychotic features (CMS/HCC) (HCC),Auditory hallucinations Take 1 tablet (10 mg) by mouth at bedtime. For psychosis 30 tablet 1 08/09/20 25 Active traZODone (Desyrel) 100 MG tabletIndications: Bipolar disorder, current episode depressed, severe, with psychotic features (CMS/HCC) (HCC) Take 1 tablet (100 mg) by mouth if needed at bedtime for sleep. For insomnia 30 tablet 1 08/09/20 25 Active prazosin (Minipress) 1 MG capsuleIndications :Bipolar disorder, current episode depressed, severe, with psychotic features (CMS/HCC) (HCC) Take 1 capsule (1 mg) by mouth at bedtime. 30 capsule 1 08/09/20 25 Active albuterol (Ventolin HFA) 108 (90 Base) MCG/ACT inhaler Inhale 2 puffs every 6 (six) hours if needed for wheezing. 18 g 08/09/20 25 Active Active Problems Problem Noted Date Diagnosed Date Opioid dependence on mainten ance agonist therapy, no symptoms (CMS/HCC) 05/02/2025 Moderate persistent asthma without complication 03/31/2025 Assessment & Plan (03/31/2025 2:53 PM EDT): Uncontrolled, start fluticasone 100 mg/day and continue albuterol as needed Counseled to quit smoking, he agreed to start nicotine patch 21 mcg, apparently 14 mcg did not work recently. Will order PFTs, he declined to have any immunizations today, will follow-up at next visit Ordered CXR due to pleuritic pain, most likely atelectasis. Follow-up at next appointment Dyspepsia 03/31/2025 Assessment & Plan (03/31/2025 2:50 PM EDT): Likely related to smoking and poor diet, due to risk factors, will refer to GI for additional workup later Order labs and rule out H. pylori, advised to quit smoking. Start sucralfate 3 times daily AC meals x 1 week and follow-up with me at next appointment. Overweight 03/31/2025 Assessment & Plan (03/31/2025 2:49 PM EDT): Discussed re weight reduction options including exercise, life style modifications, diet. Recommended to decrease soda and sugary beverage consumption, increase protein intake with meals (at least 1 portion of protein with each meal) to assist with satiety, increase dietary fiber Recommended at least 150 min/week of moderate intensity exercise. Patient with unstable housing situation, has safe food access at this time, will follow-up at next appointment Decreased vision in both eyes 03/31/2025 Assessment & Plan (03/31/2025 2:49 PM EDT): Referred to eye clinic Encounter for screening colonoscopy 03/31/2025 Assessment & Plan (03/31/2025 2:50 PM EDT): Referred to GI for colonoscopy Severe anxiety 01/19/2025 Hx of suicide attempt 01/19/2025 Cannabis use disorder 12/27/2024 Bipolar disorder, current ep isode depressed, severe ([facility]) 08/26/2024 Assessment & Plan (03/31/2025 2:53 PM EDT): Doing well although, Depakote, Wellbutrin, prazosin and trazodone. He should be on a waiting list to see a new psych provider. Will refer to to connect with the counselor, he has crisis numbers and will reach out to uretheral refinery operator vapor recovery unit if needed. He feels safe at home and is able to reach out for safety We discussed about avoiding use of recreational substances or alcohol Assessment & Plan (12/27/2024 2:59 PM EDT): Restart Depakote and Zyprexa and fu with psychiatrist on 02/01/25. Fu closely with counselor on 01/19/25. Advised to avoid using recreational substances, refer to Suboxone program, he can walk in today on to the CRS building for intake. Currently with SI but no plan, he feels safe and is able to reach out for safety ( and daughter). He has crisis number. MH team will fu closely Assessment & Plan (08/26/2024 3:58 PM EST): Patient to continue with Zypreza, Depakote, Haldol Referral placed today for behavior health, pt declined in person services today during appointment ED precautions reviewed Alcohol use disorder 08/26/2024 Dietary counseling 08/26/2024 Opioid dependence with opioid-induced mood disor clair 08/26/2024 Assessment & Plan (03/31/2025 2:51 PM EDT): Currently sober for the past 3 months, methadone program at [facility] clinic. Was referred to for counseling as per his request, I told him to reach out to his methadone refinery operator vapor recovery unit. Order labs, patient has prescription for naloxone. He feels safe at home and tells me he never uses alone. Order labs Assessment & Plan (03/31/2025 2:48 PM EDT): >>ASSESSMENT AND PLAN FOR OPIOID USE DISORDER WRITTEN ON 08/26/2024 4:02 PM BY JACKELYN ADEN CNP Pt to continue on Suboxone 2 films daily, 1 week prescribed to cover until CRS provider takes over Referral placed today for CRS OBAT Referral to care management to reduce hospitalizations and connect patient with resources Assessment & Plan (03/31/2025 2:48 PM EDT): >>ASSESSMENT AND PLAN FOR OPIOID USE DISORDER WRITTEN ON 12/27/2024 10:50 AM BY MILO MCKEON Relapsed this week. Advised to walk in today to Suboxone program, referral sent. He is aware of mortality associated to recreational opioid use, Narcan prescription sent to pharmacy. Resolved Problems Problem Noted Date Diagnosed Date Resolved Date Auditory hallucinations 02/01/202503/19 Encounters * This document contains information received from the source organization and may not represent a complete record from that organization. Date Type Department Care Team Description 10/16/2025 Patient Outreach Community [facility] () Department [address] [place] [phone] Shreya Wyman, LM 09/08/2025 Telephone [facility] MEDICINE [address] [place] [address] Deann Angelo MD Med Refill 08/22/2025 Telephone [facility] OPTOMETRY [address] [place] [address] Emilia Duron, OD 08/09/2025 Telephone [facility] MEDICINE [address] [place] [address] Deann Angelo MD 08/08/2025 Telephone [facility] MEDICINE [address] [place] [address] Deann Angelo MD Chart Prep from Last 3 Months Immunizations Immunization Administration Dates Next Due Influenza injectable quadriv alent IIV4 with preservative 09/25/2015 Tdap 07/03/2017,01/06/2014 Social History Tobacco Use Types Packs/Day Years Used Date Smoking Tobacco: Every Day Cigarettes Smokeless Tobacco: Never Tobacco Cessation:Ready to Q uit: Not Asked; Counseling Given: Not Answered Alcohol Answer Date Recorded How often do you have a drink containing alcohol ? 0 03/31/2025 How many drinks containing a lcohol do you have on a typical day when you are drinking? 0 03/31/2025 How often do you have six or more drinks on one occasion? 0 03/31/2025 Depression Answer Date Recorded Patient Health Questionnaire-9 Score 18 04/25/2025 Patient Health Questionnaire-9 Score 18 04/25/2025 Last PHQ-9: Questionnaire Data Not on file 0 04/25/2025 Housing Stability Answer Date Recorded What is your housing situation today? I have daysiariel grover 08/26/[address] you [...] Answer Date Recorded Patient Health Questionnaire-2 Score 6 04/25/2025 Internet Access Answer Date Recorded Internet Access Q1 Yes 08/26/2024 Internet Access Q2 Not on file 08/26/2024 Sex and Gender Information Value Date Recorded Sex Assigned at Male 08/18/2022 10:28 AM EDT Legal Sex Male 10:28 AM EDT Gender Identity Male 08/09/2024 8:46 AM EDT Sexual Orientation Don't know 08/09/2024 8: 46 AM EDT Last Filed Vital Signs Vital Sign Reading Time Taken Comments Blood Pressure 126/70 03/31/2025 8:47 AM EDT Pulse 88 03/31/2025 8:47 AM EDT Temperature 36 C (96.8 F) 03/31/2025 8:47 AM EDT Respiratory Rate 16 03/31/2025 8:47 AM EDT Oxygen Saturation 99% 12/27/2024 9:33 AM EDT Inhaled Oxygen Concentration - - Weight 75.1 kg (165 lb 9.6 oz) 03/31/2025 8:47 A M EDT Height 170.2 cm (5' 7 ) 03/31/2025 8:47 AM EDT Body Mass Index 25.94 03/31/2025 8:47 AM EDT Plan of Treatment Upcoming Encounters Date Type Department Care Team (Late st Contact Info) Description 11/03/2025 10:45 AM EST Office Visit [facility] MEDICINE [address] [place] [address] Deann Angelo MD [address] [place] [address] Health Maintenance Due Date Last Done Comments CT Colonography 1975 Colonoscopy 1975 Colorectal Cancer Screening 1975 FIT DNA/Cologuard 1975 FIT 1975 FOBT 1975 Sigmoidoscopy 1975 Family Planning (PISQ) 1990 Hepatitis B Vaccines (1 of 3 - 19+ 3-dose series) 1994 Pneumococcal Vaccine: 50+ Years (1 of 2 - PCV) 1994 COVID-19 Vaccine (1 - 2024-2 6 season) 2025 Influenza Vaccine (#1) 2025 09/25/2015 RSV Patients and Patients Aged 60 years or older (1 - Risk 50-74 years 1-dose series) 2025 Zoster Vaccines (1 of 2) 2025 SDOH Screening 08/26/2025 08/26/2024 Depression Monitoring 10/26/2025 04/25/2025 , 04/25/2025 Tobacco Screening 02/01/2026 02/01/2025 Alcohol/Substance Use Screening 03/31/2026 03/31/2025 Disability Screening 03/31/2026 03/31/2025 DTaP/Tdap/Td Vaccines (3 - T d or Tdap) 07/03/2027 07/03/2017, 01/06/2014 Lipid Panel 03/31/2030 03/31/2025 HIV Screening Completed 03/31/2025 Hepatitis C Screening Completed 03/31/2025 HIB Vaccines Aged Out No longer eligi ble based on patient's age to complete this topic HPV Vaccines Aged Out No longer eligi ble based on patient's age to complete this topic Hepatitis A Vaccines Aged Out No long er eligible based on patient's age to complete this topic IPV Vaccines Aged Out No longer eligi ble based on patient's age to complete this topic Meningococcal B Vaccine Aged Out No l onger eligible based on patient's age to complete this topic Meningococcal Vaccine Aged Out No nasra frannie eligible based on patient's age to complete this topic RSV under 20 months Aged Out No longe r eligible based on patient's age to complete this topic Rotavirus Vaccines Aged Out No longer eligible based on patient's age to complete this topic Goals Goal Patient Goal Type Associated Problems Recent Progress Patient-Stated? Author Increase coping skills to promote long-term recovery and improve ability to perform daily activities General No Laurita Abdi, sanitary engineering teacher Procedure Name Priority Date/Time Associated Diagnosis Comments HIGH SENSITIVITY TROPONIN I Routine 10/16/2025 8:11 PM EST Bipolar disorder, current episode depressed, severe, with psychotic features (CMS/HCC) (HCC) HEPATITIS PANEL, GENERAL Routine 03/31/2025 10:18 AM EDT Opioid use disorder HIV 1/2 ANTIGEN/ANTIBODY, FOURTH GENERATION W/RFL Routine 03/31/2025 10:18 AM EDT Opioid use disorder LIPID PANEL WITH REFLEX TO DIRECT LDL Routine 03/31/2025 10:18 AM EDT Bipolar disorder, current episode depressed, severe, with psychotic features (CMS/HCC) from Last 3 Months or Most Recently Relevant to Health Maintenance Results * High Sensitivity Troponin I (10/16/2025 8:11 PM EST) TROPONIN I HIGH SENSITIVITY 3.4 <3.5 - 35.0 ng/L [facility] Comment:The Lowe high sens itivity Troponin-I results should beused in conjunction with other diagnostic information suchas ECG, clinical observations and information, and patientsymptoms to aid in the diagnosis of HI. 10/16/2025 8:11 PM EST 10/16/2025 8:16 PM EST us Generic External Data Provider LAB BLOOD ORDERAB LES Final Result [facility] [address] [place] [address] [phone] * (ABNORMAL) Lipid Panel with Reflex to Direct LDL (03/31/2025 10:18 AM EDT) Triglycerides 151(H) <150 mg/dL [facility] Comment:Desirable Triglyceri de: less than 150 mg/dLBorderline High Triglyceride 150-199 mg/dLHigh Triglyceride: 200-499 mg/dLVery High Triglyceride: greater than or equal to 5OO mg/dL Cholesterol 160 <200 mg/dL [facility] Comment:Desirable Cholestero l: less than 200 mg/dLBorderline High Cholesterol: 200-239 mg/dLHigh Cholesterol: greater than 239 mg/dL LDL Cholesterol Calculated 89 <100 mg/dL [facility] Comment:Desirable LDL: less than 100 mg/dLNear Optimal/Above Optimal LDL: 110- 129 mg/dLBorderline High LDL: 130-159 mg/dLHigh LDL: 160-189 mg/dLVery High LDL: greater than or equal to 190 mg/dL HDL Cholesterol 41 >40 mg/dL [facility] Comment:Desirable HDL: great er than 40 mg/dL Note: This HDL assay may give artificially low results in patients with liver disease. Blood 03/31/2025 10:1 8 AM EDT 03/31/2025 10:59 AM EDT Deann Angelo MD LAB BLOOD ORDERABLES Fin al Result Performing Organization Address [facility] de Phone Number [facility] [address] [place] [phone] * (ABNORMAL) Hepatitis Panel, General (03/31/2025 10:18 AM EDT) Hepatitis A IgM Nonreactive Nonreactive [facility] Comment:IgM antibodies to CUEVAS V not detected; does not exclude earlyacute or recovered HAV infection. ~Hepatitis B Surface Antibody REACTIVE Nonreactive [facility] Comment:REACTIVE: > 11.99 mI U/mL Hepatitis B Core Antibody Nonreactive Nonreactive [facility] Hepatitis C Antibody Reactive(A) Nonreactive [facility] Comment:Presumptive evidence of antibodies to HCV. Hepatitis B Surface Ag Negative Negative [facility] Blood 03/31/2025 10:1 8 AM EDT 03/31/2025 10:59 AM EDT Deann Angelo MD LAB BLOOD ORDERABLES Fin al Result Performing Organization Address [facility] Co de Phone Number [facility] [address] [place] [phone] * HIV-1/2 Antigen and Antibodies, Fourth Generation, with Reflexes (03/31/2025 10:18 AM EDT) HIV AB/AG Nonreactive Nonreactive [facility] Comment:HIV-1 p24 Ag and/or HIV-1/HIV-2 Ab not detected.A test result that is nonreactive does not exclude thepossibility of exposure to or infection with HIV-1 and/orHIV-2. Nonreactive results in this assay for individualswith prior exposure to HIV-1 and/or HIV-2 may be due toantigen and antibody levels that are below the limit ofdetection of this assay.The [employer] HIV Ag/Ab Combo assay result andsupplemental assay results should be interpreted inconjunction with the patient's clinical presentation,history and other laboratory results. If the results areinconsistent with clinical evidence, additional testing issuggested to confirm the result. Blood Venous blood specimen / Unknown 03/31/2025 10:18 AM EDT 03/31/2025 10:59 AM EDT Deann Angelo MD LAB BLOOD ORDERABLES Fin al Result [facility] [address] [place] [phone] [phone] from Last 3 Months or Most Recently Relevant to Health Maintenance Insurance [facility] C3 HSN FULL Care Teams Quahogger Relationship Specialty Start Date End Date Deann Angelo MD [address] [place] [phone] PCP - General Internal Medicine 02/02/25 Shreya Wyman, [facility] Lodging Facilities Attendant Behavioral Health 10/16/25
--- OUTSIDE RECORDS SUMMARY | 2025-10-16 20:42 | XMS_ITS | Encounter Summary ---
Author Organization [employer] Address [address] [place] [address] [address] [place] [address] Care Team Providers Care Block Bolter Mule Operator Name Role Phone Deann Angelo MD Primary Care Provider + Shreya Wyman [facility] Unavailable [phone] Encounter Details Date Type Department Care Team (Late st Contact Info) Description 08/03/2024 Telephone [facility] MEDICINE [address] [place] [address] [phone] Mounika Bella PharmD [address] [place], [place] [phone] Social History Tobacco Use Types Packs/Day Years Used Date Smoking Tobacco: Never Assessed Sex and Gender Information Value Date Recorded Sex Assigned at Male 08/18/2022 10:28 AM EDT Legal Sex Male 10:28 AM EDT Gender Identity Male 08/09/2024 8:46 AM EDT Sexual Orientation Don't know 08/09/2024 8: 46 AM EDT documented as of this encounter Miscellaneous Notes * Telephone Encounter - Mounika Bella PharmD - 08/03/2024 3:39 PM EDT Please assist in obtaining discharge paperwork from [facility] following [facility] ED visit on 06/24/2024. Thank you documented in this encounter Plan of Treatment Upcoming Encounters Date Type Department Care Team (Late st Contact Info) Description 11/03/2025 10:45 AM EST Office Visit [facility] MEDICINE [address] [place] [address] [phone] Deann Angelo MD [address] [place], [place] [phone] documented as of this encounter Visit Diagnoses Not on filedocumented in this encounter Care Teams Block Bolter Mule Operator Relationship Specialty Start Date End Date Deann Angelo MD [address] [place] [phone] PCP - General Internal Medicine 02/02/25 Shreya Wyman, [facility] Production Grader Behavioral Health 10/16/25 documented as of this encounter
--- OUTSIDE RECORDS SUMMARY | 2025-10-16 20:42 | XMS_ITS | Encounter Summary ---
Author Organization [employer] Address [address] [place] [address] [address] [place] [address] Care Team Providers Care Lending Advisor Name Role Phone Deann Angelo MD Primary Care Provider + Shreya Wyman [facility] Unavailable [phone] Encounter Details Date Type Department Care Team (Late st Contact Info) Description 08/03/2024 Telephone [facility] [address] [place] [address] [phone] Mounika Bella PharmD [address] [place], [place] [phone] Social History Tobacco Use Types Packs/Day Years [...] Encounter - Mounika Bella PharmD - 08/03/2024 3:52 PM EDT Please assist in obtaining discharge paperwork from [facility] Patient was discharged on 06/29/2024. Thank you documented in this encounter Plan of Treatment Upcoming Encounters Date Type Department Care Team (Late st Contact Info) Description 11/03/2025 10:45 AM EST Office Visit [facility] [address] [place] [address] [phone] Deann Angelo MD [address] [place], [place] [phone] documented as of this encounter Visit Diagnoses Not on filedocumented in this encounter Care Teams Lending Advisor Relationship Specialty Start Date End Date Deann Angelo MD [address] [place] [phone] PCP - General Internal Medicine 02/02/25 Shreya Wyman, [facility]fter [employer] 10/16/25 documented as of this encounter
--- OUTSIDE RECORDS SUMMARY | 2025-10-16 20:42 | XMS_ITS | Encounter Summary ---
Author Organization [employer] Address [address] [place] [address] Care Team Providers Care Library Aide Name Role Phone Unavailable Primary Care Provider Unavailabl e Encounter Details Date Type Department Care Team (Late st Contact Info) Description 10/15/2025 Lab Requisition [facility] - Main Lab [address] [facility] [address] [place] [address] Siva Gann NP [facility] [place], [place] [phone] Social History Tobacco Use Types Packs/Day Years Used Date Smoking Tobacco: Never Assessed Sex and Gender Information Value Date Recorded Sex Assigned at Not on file Legal Sex Male 5:20 AM EST Gender Identity Not on file Sexual Orientation Not on file documented as of this encounter Plan of Treatment Not on file documented as of this encounter Visit Diagnoses Not on filedocumented in this encounter
--- OUTSIDE RECORDS SUMMARY | 2025-10-16 20:42 | XMS_ITS | Encounter Summary ---
Author Organization [employer] Address [address] [facility] 7t [place] [address] Care Team Providers Care Medical Assistant Cardiology Name Role Phone Deann Angelo MD Primary Care Provider + Shreya Wyman [facility] Unavailable [phone] Encounter Details Date Type Department Care Team ([facility] st Contact Info) Description 10/16/2025 Patient Outreach [facility] (C3) Department [address] [facility] [address] [place] [phone] Shreya Wyman [facility] Social History Tobacco Use Types Packs/Day Years Used Date Smoking Tobacco: Every Day Cigarettes Smokeless Tobacco: Never Alcohol Answer Date Recorded How often do [...] AM EDT documented as of this encounter Progress Notes * LORNA Hargrove - 10/16/2025 4:46 PM EST Member admitted [facility] on 10/14/25. Per EVS assigned to [facility]. Assigned SW Ronald Leone. documented in this encounter Plan of Treatment Upcoming Encounters Date Type Department Care Team (Late st Contact Info) Description 11/03/2025 10:45 AM EST Office Visit [facility] [address] [place] [phone] Deann Angelo MD [address] [place] [phone] documented as of this encounter Goals Goal Patient Goal Type Associated Problems Recent Progress Patient-Stated? Author Increase coping skills to promote long-term recovery and improve ability to perform daily activities General No Laurita Abdi, ADAM documented as of this encounter Visit Diagnoses Not on filedocumented in this encounter Additional Health Concerns Assessment Noted Time PHQ-9 Depression Total Score: 18 025 1:15 PM EDT documented as of this encounter Care Teams Medical Assistant Cardiology Relationship Specialty Start Date End Date Deann Angelo MD [address] [place] [phone] PCP - General Internal Medicine 02/02/25 Shreya Wyman, [facility] Filling [facility] 10/16/25 documented as of this encounter
--- OUTSIDE RECORDS SUMMARY | 2025-10-16 20:42 | XMS_ITS ---
Author Organization [facility] [employer] [facility] Address [address] [place] [address] 7t [place] [address] Care Team Providers Care Director Human Services Name Role Phone Deann Angelo MD Primary Care Provider + Shreya Wyman [facility] Unavailable [phone] CM TO Status:Outreach In Progress (Enrolling) Start date:10/16/2025 Enrollment reason:ADT Feed Case Team Name Relationship Phone Shreya Wyman [facility](Responsible Staff) Social Worke r [phone] Continued Care and Services Coordination
--- OUTSIDE RECORDS SUMMARY | 2025-10-16 20:42 | XMS_ITS | Encounter Summary ---
Author Organization [employer] Address [address] [place] [address] Care Team Providers Care Nurse First Aid Name Role Phone Unavailable Primary Care Provider Unavailabl e Encounter Details Date Type Department Care Team (Late st Contact Info) Description 10/15/2025 Lab Requisition [facility] - Main Lab [address] [facility] [place] [address] Siva Gann NP [address] [place] [address] Other [facility] (current) drug therapy Social History Tobacco Use Types Packs/Day Years Used Date Smoking Tobacco: Never Assessed Sex and Gender Information Value Date Recorded Sex Assigned at Not on file Legal Sex Male 5:20 AM EST Gender Identity Not on file Sexual Orientation Not on file documented as of this encounter Plan of Treatment Not on file documented as of this encounter Procedures Procedure Name Priority Date/Time Associated Diagnosis Comments LIPID PANEL WITH REFLEX TO DIRECT LDL Routine 10/15/2025 7:00 AM EST 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 HEMOGLOBIN A1C Routine 10/15/2025 7:00 AM EST Other [facility] (current) drug therapy GLUCOSE, RANDOM Routine 10/15/2025 7:00 AM EST Other [facility] (current) drug therapy documented in this encounter Results * Lipid panel with reflex to direct LDL (10/15/2025 7:00 AM EST) Cholesterol 162 0 - 200 mg/dL 10/15/2025 12:43 PM EST [facility] Triglycerides 95 0 - 150 mg/dL 10/15/2025 12:43 PM EST [facility] HDL 53 >=40 mg/dL 10/15/2025 12:43 PM [facility] LDL Calculated 90 0 - 100 mg/dL 10/15/2025 12:43 PM [facility] Comment:Estimated LDL is david culated using the Friedewald equation: Total cholesterol - HDL cholesterol - (Triglycerides/5) VLDL Cholesterol David 19 mg/dL 10/15/2025 12:43 PM [facility] Non HDL Chol. (LDL+VLDL) 109 <145 mg/dL 10/15/2025 12:43 PM [facility] Chol/HDL Ratio 3.1 0.0 - 4.4 10/15/2025 12:43 PM [facility] Blood Venous blood specimen / Unknown Venipuncture / Unknown 10/15/2025 7:00 AM EST 10/15/2025 11:27 AM EST Siva Gann NP LAB BLOOD ORDERABLES Final Resul t [facility] [address] [place] [address], * Hemoglobin A1c (10/15/2025 7:00 AM EST) Hemoglobin A1C 5.7 <6.5 % LAB CHEMISTRY METHOD 10/16/2025 11:06 AM [facility] Mean Bld Glu Estim. 117 mg/dL LAB CHEMISTRY METHOD 10/16/2025 11:06 AM [facility] Blood Venous blood specimen / Unknown Venipuncture / Unknown 10/15/2025 7:00 AM EST 10/15/2025 11:27 AM EST Siva Gann NP LAB BLOOD ORDERABLES Final Resul t Performing Organization Address City/[facility]/ZIP Co de Phone Number [facility] [address] [place] [address], * (ABNORMAL) Glucose, random (10/15/2025 7:00 AM EST) Glucose 104(H) 70 - 100 mg/dL 10/15/2025 12:41 PM EST [facility] Blood Venous blood specimen / Unknown Venipuncture / Unknown 10/15/2025 7:00 AM EST 10/15/2025 11:27 AM EST us Siva Gann NP LAB BLOOD ORDERABLES Final Resul t [facility] [address] [place] [address], [place] [phone] documented in this encounter Visit Diagnoses Diagnosis Other [facility] (current) drug therapy documented in this encounter
--- OUTSIDE RECORDS SUMMARY | 2025-10-16 20:42 | XMS_ITS | Clinical Summary ---
Author Organization [facility] [employer] [facility] it Address [address] [place] [address] Care Team Providers Care Psychotherapist Name Role Phone Unavailable Primary Care Provider Unavailabl e Encounters Date Type Department Care Team Description 10/15/2025 Lab Requisition [facility] [address] [place] [address] Siva Gann NP Other group home (current) drug therapy 10/15/2025 Lab Requisition [facility] [address] [place] [address] Siva Gann NP from Last 3 Months Social History Tobacco Use Types Packs/Day Years Used Date Smoking Tobacco: Never Assessed Sex and Gender Information Value Date Recorded Sex Assigned at Not on file Legal Sex Male 5:20 AM EST Gender Identity Not on file Sexual Orientation Not on file Plan of Treatment Health Maintenance Due Date Last Done Comments Colorectal Cancer Screening: Colonoscopy 1975 DTaP,Tdap,and Td Vaccines (1 - Tdap) 1994 Hepatitis B Vaccines (1 of 3 - 19+ 3-dose series) 1994 HIV Screening 09/21/2022 Hepatitis C Screening 09/21/2022 Social Influencers of Health Screening 09/21/2022 Depression Screening 10/19/2024 COVID-19 Vaccine (1 - 2024-2 6 season) 2025 Influenza Vaccine (#1) 2025 Pneumococcal Vaccine: 50+ Ye ars (1 of 1 - PCV) 2025 Zoster Vaccines (1 of 2) 2025 Cholesterol Screening (Lipid Panel) 10/15/2030 10/15/2025 RSV Immunization Adult Patie nts (1 - 1-dose 75+ series) 2050 HIB Vaccines Aged Out No longer eligi [...] on patient's age to complete this topic MMR Vaccines Aged Out No longer eligi ble based on patient's age to complete this topic Meningococcal ACWY Vaccine Aged Out N o longer eligible based on patient's age to complete this topic Meningococcal B Vaccine Aged Out No l onger eligible based on patient's age to complete this topic RSV Immunization Patients Un clair 20 months Aged Out No longer eligible b ased on patient's age to complete this topic Varicella Vaccines Aged Out No longer eligible based on patient's age to complete this topic Procedures Procedure Name Priority Date/Time Associated Diagnosis Comments LIPID PANEL WITH REFLEX TO DIRECT LDL Routine 10/15/2025 7:00 AM EST Other group home (current) drug therapy HEMOGLOBIN A1C Routine 10/15/2025 7:00 AM EST 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 GLUCOSE, RANDOM Routine 10/15/2025 7:00 AM EST Other group home (current) drug therapy from Last 3 Months Results * Lipid panel with reflex to direct LDL (10/15/2025 7:00 AM EST) Cholesterol 162 0 - 200 mg/dL 10/15/2025 12:43 PM [facility] Triglycerides 95 0 - 150 mg/dL 10/15/2025 12:43 PM [facility] HDL 53 >=40 mg/dL 10/15/2025 12:43 PM [facility] LDL Calculated 90 0 - 100 mg/dL 10/15/2025 12:43 PM [facility] Comment:Estimated LDL is partha culated using the Friedewald equation: Total cholesterol - HDL cholesterol - (Triglycerides/5) VLDL Cholesterol Partha 19 mg/dL 10/15/2025 12:43 PM [facility] Non HDL Chol. (LDL+VLDL) 109 <145 mg/dL 10/15/2025 12:43 PM EST [facility] Chol/HDL Ratio 3.1 0.0 - 4.4 10/15/2025 12:43 PM EST [facility] Blood Venous blood specimen / Unknown Venipuncture / Unknown 10/15/2025 7:00 AM EST 10/15/2025 11:27 AM EST Siva Gann NP LAB BLOOD ORDERABLES Final Resul t Performing Organization Address City/[facility]/ZIP Co de Phone Number [facility] [address] [place] [address], [place] [phone] * Hemoglobin A1c (10/15/2025 7:00 AM EST) Hemoglobin A1C 5.7 <6.5 % LAB CHEMISTRY METHOD 10/16/2025 11:06 AM EST [facility] Mean Bld Glu Estim. 117 mg/dL LAB CHEMISTRY METHOD 10/16/2025 11:06 AM [facility] Blood Venous blood specimen / Unknown Venipuncture / Unknown 10/15/2025 7:00 AM EST 10/15/2025 11:27 AM EST us Siva Gann NP LAB BLOOD ORDERABLES Final Resul t [facility] [address] [place] [address], [place] [phone] * (ABNORMAL) Glucose, random (10/15/2025 7:00 AM EST) Glucose 104(H) 70 - 100 mg/dL 10/15/2025 12:41 PM EST [facility] Blood Venous blood specimen / Unknown Venipuncture / Unknown 10/15/2025 7:00 AM EST 10/15/2025 11:27 AM EST us Siva Gann NP LAB BLOOD ORDERABLES Final Resul t [facility] [address] [place] [address], from Last 3 Months
--- NOTE | 2025-10-16 21:12 | ED.GENADULT ---
HPI - General Adult General Chief complaint: Syncope Stated complaint: [place] [address], ?seizure, syncope Time Seen by Provider: 10/16/25 20:16 Source: patient Limitations: no limitations History of Present Illness ED Provider: Amanda Tao PA-C HPI narrative: 50-year-old male with a history of polysubstance abuse, alcohol use disorder, mood disorder, asthma who presents from [facility] after syncopal episode while sitting. Patient has been at [facility] for 4 days, he states ?they are not helping my withdrawal, they are starting treatment today?. Patient denies preceding chest pain, shortness of breath or palpitations. Related Data Previous Rx's ?Medication ?Instructions ?Recorded naloxone 4 mg/actuation nasal 4 mg intranasal Q2M PRN opioid 06/30/24 spray (Narcan) overdose 1 day #2 ea Allergies Allergy/AdvReac Type Severity Reaction Status Date / Time No Known Allergies (No Known Allergy Verified 10/16/25 19:25 Allergies*) Review of Systems Review of Systems: Yes all other systems are reviewed and are negative Constitutional: Constitutional: Denies fatigue, Denies fever(s) and Denies headache(s) ENT: Denies dizziness and Denies headache(s) Cardiovascular: Cardiovascular: Denies chest pain, Reports syncope, Denies palpitations and Denies dyspnea Respiratory: Respiratory: Denies cough and Denies dyspnea Gastrointestinal: Gastrointestinal: Denies abdominal pain, Denies diarrhea, Denies nausea and Denies vomiting Neurologic: Denies dizziness, Reports syncope and Denies headache(s) Endocrine: Endocrine: Denies fatigue and Denies palpitations PMFSH Past Medical History Attestation statement: The following information was validated with the patient. Medical History Substance abuse Asthma Social History Social History Household Members: Unknown / Unable to assess Household Members Other:: MED REC NOTES STABLE HOUSING/SUPPORTIVE FAM Housing: Unknown / Unable to assess Do you presently have visiting nurse or other home services: No Alcohol intake: never Patient Tobacco Use Status: Current everyday Tobacco user Tobacco use type: Cigarette Smoked in Last 30 Days: No e-Cigarette/Vaping Use: Never Used Second Hand Smoke Exposure: No Use of substances other than those prescribed or required for medical reasons: No Substance Use Type: Crack/Cocaine, Heroin, Marijuana and Opiates Advance Directives: No Advance Directives Information Provided: No Do you have a plan to hurt others: No Plan service: No Sexual orientation: Straight/Heterosexual Physical Exam ED Vital Signs: Vital Signs - 24 hr 10/16/25 19:19 10/16/25 19:32 10/16/25 21:20 Temperature 98 F Pulse Rate 92 89 Respiratory Rate 20 Blood Pressure 127/70 142/72 H Pulse Oximetry 99 Oxygen Delivery Method Room Air Room Air 10/16/25 21:21 10/16/25 21:24 Temperature Pulse Rate 94 99 Respiratory Rate Blood Pressure 132/67 142/72 H Pulse Oximetry Oxygen Delivery Method BMI result Body Mass Index 24.3 Const Other: Alert, appears older than stated age Orientation/consciousness: patient oriented x3 Resp Effort & Inspection: normal respiratory effort Cardio Other: Normal peripheral perfusion Skin Other: Warm dry no rash Neuro General: patient oriented x3, gait normal, no focal motor deficits and CN's II-XI intact bilaterally Psych Other: Cooperative Medical Decision Making Medical Decision Making MDM Narrative: 50-year-old male with a history of polysubstance abuse, alcohol use disorder, mood disorder, asthma who presents from [facility] after syncopal episode while sitting. Patient has been at [facility] for 4 days, he states ?they are not helping my withdrawal, they are starting treatment today?. Patient denies preceding chest pain, shortness of breath or palpitations. Problem: Polysubstance abuse, alcohol use disorder History: Per patient I have considered the following differential diagnoses: Vasovagal syncope, new arrhythmia, dehydration, anemia, electrolyte abnormality, drug/alcohol withdrawal , orthostasis, ACS, viral syndrome Plan: Screening labs including cardiac enzymes and EKG obtained from triage. He has no underlying organic cause that could be contributory to his symptoms; i.e. dehydration anemia electrolyte abnormality. He has been at [facility] for 4 days, he is not having active GI symptoms to suggest opiate withdrawal. He is not altered, he is not overtly hypertensive, he is not exhibiting symptoms of alcohol withdrawal either. Orthostatic vitals were obtained, they are unremarkable. ACS considered, the patient denies chest pain, cardiac enzymes ordered and are flat. I have independently reviewed the following tests: Labs: No leukocytosis, not anemic, no electrolyte abnormality, viral panel negative, troponin x2 flat EKG: Normal sinus rhythm, rate of 86, no ischemic changes no ectopy, QTC 461 Differential Diagnosis Differential Diagnoses: The differential diagnosis associated with the presentation includes See MDM Admission/Observation Consideration of admission/observation: Escalation of care including admission/observation considered Not applicable Lab Data [facility] Lab Attestation statement: I reviewed the patient's lab results. 10/16/25 20:11 10/16/25 20:11 Labs: Lab Results 10/16/25 10/16/25 Range/Units 20:11 22:36 WBC 4.8 (4.8-10.8) X10*3/uL RBC 3.62 L (4.60-5.80) X10*6/uL Hgb 11.1 L (14.0-18.0) g/dl Hct 32.6 L (42.0-52.0) % MCV 90.1 (80.0-98.0) fL MCH 30.7 (27.0-33.0) pg MCHC 34.0 (31.0-36.0) g/dl RDW 12.5 (11.0-16.0) % Plt Count 209 (160-400) X10*3/uL MPV 9.5 (9.4-12.4) fL Immature Gran % (Auto) 0.2 (0.0-0.4) % Neut % (Auto) 40.3 L (45-73) % Lymph % (Auto) 49.7 H (20-40) % Mobile % (Auto) 8.6 (2-11) % Eos % (Auto) 0.8 (0-4) % Baso % (Auto) 0.4 (0-2) % Lymph # (Auto) 2.4 (1.2-4.9) X10*3/uL Mobile # (Auto) 0.4 (0.1-1.2) X10*3/uL Eos # (Auto) 0.0 (0.0-0.4) X10*3/uL Baso # (Auto) 0.0 (0.0-0.2) X10*3/uL Abs Immat Gran (auto) 0.01 (0.00-0.03) X10*3/uL Absolute Neuts (auto) 1.9 L (2.0-8.3) x10*3/uL Absolute Nucleated RBC 0.000 (0.0-0.012) X10*3/uL Nucleated RBC % (auto) 0.0 (0.0-0.2) /100WBC Sodium 142 (135-145) mmol/L Potassium 4.2 (3.3-5.1) mmol/L Chloride 107 (96-108) mmol/L Carbon Dioxide 30 H (22-29) mmol/L Anion Gap 9 L (12-20) BUN 19 H (9-16) mg/dL Creatinine 1.02 (0.5-1.4) mg/dL Estim Creat Clear Calc 81.0 Estimated GFR > 60 Random Glucose 105 (60-115) mg/dL Calcium 8.9 D (8.4-10.2) mg/dL Magnesium 1.9 (1.6-2.6) mg/dL Total Bilirubin 0.1 (0.0-1.0) mg/dL AST 34 (5-37) U/L ALT 51 H (0-40) U/L Alkaline Phosphatase 43 (39-117) U/L Troponin I High Sens 3.4 4.4 (<3.5-35.0) ng/L Total Protein 6.1 L (6.5-8.0) g/dL Albumin 3.7 (3.5-5.0) g/dL Valproic Acid 44.0 L (50.0-100.0) mcg/mL COVID-19 (PATRICIA) Negative (Negative) COVID-19 Clin Com See Note Influenza Type A (JUSTO) Negative (Negative) Influenza Type B (JUSTO) Negative (Negative) Influenza A & B Note See Note Independent Interpretation I performed an independent interpretation of an: EKG Discharge Plan Discharge Clinical Impression: Vasovagal syncope Patient Disposition: Xfer Inpatient Rehab Fac Transfer Details: returning to [facility] Additional Instructions: All of your screening labs were normal including 2 cardiac enzymes. There were no concerning changes on the EKG. You likely had this episode secondary to withdrawal symptoms. They will manage your withdrawal at [facility]. You can discuss the need for methadone when you return. Prescriptions: No Action naloxone [Narcan] 4 mg/actuation spray,non-aerosol 4 mg intranasal Q2M PRN (Reason: opioid overdose) 1 Days Qty: 2 0RF Rx Instructions: spray 1 dose into ONE nostril; alternate nostrils w each dose until help arrives Discharge Date/Time: 10/17/25 00:30 Print Language: Iraqi
--- NOTE | 2025-10-16 21:18 | MHC.EDTECH ---
Contacted [employer] @[phone] requesting to have sect 21 faxed over. Called [employer] back @[phone] as we still have not received the sect 21. Was told they faxed after the first call but they will try again now.
[2025-10-16 21:20] VITALS: BP 142/72; PULSE 89
[2025-10-16 21:21] VITALS: BP 132/67; PULSE 94
[2025-10-16 21:24] VITALS: BP 142/72; PULSE 99
[2025-10-16 23:01] LABS: Troponin-I High Sensitivity 4.4 ng/L (<3.5-35.0)
--- NOTE | 2025-10-16 23:41 | PC.NURSE ---
report given to José Antonio MEDINA at [facility] [phone]. still awaiting fax of section 21 to book transport back to [facility].
[2025-10-16 23:43] VITALS: BP 133/94; PULSE 84; RESP 16; TEMP 36.6; O2SAT 98
== END 2025-10-17 00:30 ==
PROVIDERS: Physician Assistant Medical; Emergency Provider Emergency Medicine
DX: R55 Syncope and collapse (principal); F17.210 Nicotine dependence, cigarettes, uncomplicated; Z11.52 Encounter for screening for COVID-19; Z79.899 Other long term (current) drug therapy
CPT/HCPCS: 36415; 80053; 80164; 83735; 84484; 85025; 87502; 87635; 93005; 99284

== ENCOUNTER → 2025-10-16 19:26 | Outpatient (BNV) | payer MEDICAID, SELFPAY | PROVIDERS: Emergency Provider Emergency Medicine; Visit Provider Internal Medicine | DX: R55 Syncope and collapse (principal) | CPT/HCPCS: 93010 ==